=== PATIENT | male | born 1970 | race Caucasian/White ===

== ENCOUNTER 2021-01-07 10:32 | Outpatient (CLI) | payer BC, SELFPAY ==
[2021-01-07] MEDS: Breeza Beverage 473 ML BTL PO ×2 (13:22→13:23)
[2021-01-07 14:14] LABS: ALT 88 U/L (16-63); AST 40 U/L (15-37); Albumin 2.7 g/dL (3.4-5.0); Alkaline Phosphatase 84 U/L (46-116); Anion Gap 8.9 mmol/L (3-11); BUN 11 mg/dL (7-18); Bilirubin, Total 0.8 mg/dL (0.2-1.0); CO2 27.1 mmol/L (21.0-32.0); CREATININE 0.8 mg/dL (0.70-1.30); Calcium 8.7 mg/dL (8.5-10.1); Chloride 99 mmol/L (98-107); Glucose 102 mg/dL (74-106); Potassium 3.5 mmol/L (3.5-5.1); Sodium 135 mmol/L (136-145)
--- NOTE | 2021-01-07 15:10 | DI.CT_ITS ---
Exam(s) CT ABDOMEN PELVIS W EXAM: CT ABDOMEN PELVIS W CLINICAL HISTORY: ACUTE DIVERTICULITIS, K57.92. TECHNIQUE: Imaging Protocol: Axial computed tomography images with coronal and sagittal reformatted images were created and reviewed CONTRAST MATERIAL: Intravenous: Omnipaque 350 Contrast volume:100 ml Oral: yes COMPARISON: No exams were available for comparison FINDINGS: ABDOMEN: Lung Bases: Normal where visualized. Liver: Normal density. No measurable mass. Gallbladder and biliary tract: No radiodense calculus or dilation. Pancreas: Normal density, no abnormal calcifications or inflammatory process. Spleen: Normal. Kidneys: Normal size, contour and axis. No radiodense stones or obstructive uropathy. No masses seen. Adrenal glands: No masses seen. Abdominal Aorta: Abdominal portion non-dilated. PELVIS: Bladder: Wall thickening at the upper left side of the bladder, adjacent to the colonic inflammation. No air within the bladder.. No calculi.No focal mass. Bowel: Extensive diverticulosis throughout the colon. Severe inflammation centered around the sigmoi d colon. Marked stranding in the surrounding fat. Multiple small adjacent abscesses medial to the s igmoid colon, superior to the bladder. Together the abscesses measure approximately 6 cm. No obstru ction . Appendix normal. Peritoneal cavity: No free air or ascites. Bones: Degenerative changes. Within normal limits for age. Reproductive organs: Within normal limits. Lymph nodes: Unremarkable. Soft tissues: Small bilateral fatty containing inguinal hernias. Small amount of fat at the umbilicu s. Impression: Severe sigmoid diverticulitis with multiple small abscess formation measuring roughly 6 cm in diamete r between the sigmoid colon and bladder. RADIATION DOSE DELIVERED: 1,305.11mGy.cm Total DLP DATA REPOSITORY: All CT scans at this facility are submitted to the National Radiology Data Registry (NRDR) Dose Index Registry (DIR) with the [employer] (ACR). RADIATION OPTIMIZATION: All CT scans at this facility use at least one of these dose optimization te chniques: automated exposure control; mA and/or kV adjustment per patient size (includes targeted exa ms where dose is matched to clinical indication); or iterative reconstruction.
[2021-01-07] MEDS: Omnipaque 350 MG/ML 100 ML BTL IJ (15:16)
[2021-01-07] MEDS: Normal Saline - Diluent 50 ML VIAL IV (15:17)
[2021-01-07] MEDS: Normal Saline Flush 10 ML SYR IVP (15:17)
== END 2021-01-07 10:52 ==
PROVIDERS: PCP Specialist/Technologist Athletic Trainer; Visit Provider Family Medicine
DX: K57.20 Diverticulitis of large intestine with perforation and abscess without bleeding; R73.9 Hyperglycemia, unspecified; I10 Essential (primary) hypertension; E78.5 Hyperlipidemia, unspecified
CPT/HCPCS: 80053; 74177; J3490

== ENCOUNTER 2021-02-12 14:35 | Outpatient (REF) | payer BC, SELFPAY | END 2021-02-12 14:36 | disposition home or self-care (01) | LOC: NCHCN 14:35 | PROVIDERS: PCP Specialist/Technologist Athletic Trainer; Visit Provider Family Medicine | DX: R30.0 Dysuria (principal) | CPT/HCPCS: 87077; 87086; 87186 ==

== ENCOUNTER 2021-02-26 12:37 | Outpatient (REF) | payer BC, SELFPAY ==
[2021-02-26 15:52] LABS: Abs Immature Grans 0.02 10^3/uL (0.0-0.06); Absolute Basophil Count 0.06 10^3/uL (0.0-0.2); Absolute Eosinophil Count 0.11 10^3/uL (0.0-0.7); Absolute Lymphocyte Count 2.49 10^3/uL (1.2-3.4); Absolute Monocyte Count 0.62 10^3/uL (0.1-0.8); Absolute Neutrophil Count 4.93 10^3/uL (1.2-6.7); Basophils % 0.7; Eosinophils % 1.3; HCT 42.7 % (40.0-50.0); HGB 13.6 g/dL (13.5-17.5); Immature Grans % 0.2; Lymphocytes % 30.3; MCH 27.3 pg (27.0-33.0); MCHC 31.9 % (32.0-36.0); MCV 85.7 fL (80-95); MPV 10.6 fL (8.0-11.0); Monocytes % 7.5; Nucleated RBC 0 %; Platelet Count 348 10^3/uL (130-400); RBC 4.98 10^6/uL (4.36-5.78); RDW 14.6 % (11.8-14.1); RDW-SD 45.4 fL; WBC 8.23 10^3/uL (4.4-10.8)
[2021-02-26 15:56] LABS: Bilirubin Negative (Negative); Blood Large (Negative); Clarity Cloudy (Clear); Glucose Negative (Negative); Ketones Trace mg/dL (Negative); Leukocyte Esterase Trace (Negative); Nitrite Negative (Negative); Specific Gravity >= 1.030 (1.005-1.025); Urobilinogen 0.2 EU/dL (Up TO 0.2); pH 5.5 (5-8)
[2021-02-26 15:58] LABS: ALT 36 U/L (16-63); AST 18 U/L (15-37); Albumin 3.6 g/dL (3.4-5.0); Alkaline Phosphatase 70 U/L (46-116); Anion Gap 6.1 mmol/L (3-11); BUN 15 mg/dL (7-18); Bilirubin, Total 0.4 mg/dL (0.2-1.0); CO2 31.9 mmol/L (21.0-32.0); CREATININE 0.9 mg/dL (0.70-1.30); Calcium 9.4 mg/dL (8.5-10.1); Chloride 104 mmol/L (98-107); Glucose 107 mg/dL (74-106); Potassium 4.5 mmol/L (3.5-5.1); Sodium 142 mmol/L (136-145)
[2021-02-26 16:06] LABS: Bacteria Many HPF (Negative); C & S Indicated? Yes; WBC >50 HPF (0-5)
== END 2021-02-26 12:38 | disposition home or self-care (01) ==
LOC: NCHCN 12:37
PROVIDERS: PCP Specialist/Technologist Athletic Trainer; Visit Provider Family Medicine
DX: R10.32 Left lower quadrant pain (principal); R30.0 Dysuria
CPT/HCPCS: 80053; 81003; 81015; 85025; 87086

== ENCOUNTER 2021-03-11 09:16 | Inpatient (IN) | payer BC, SELFPAY ==
--- NOTE | 2021-03-11 11:32 | HPE_ITS ---
Date of service: 03/11/21 Time of Service: 11:32 Assessment and Plan Assessment and plan (1) Diverticulitis, colon: Status: Acute Assessment and plan: Patient continues to have a low-grade diverticulitis despite being on almost 3 weeks of po Cipro and Flagyl. He is currently still on Bactrim for UTI proph from the colo-vesicle fistula. I did personally review his CT scan and does still show a giant phlegmon as well as the colovesical fistula. He still complains of low-grade fevers and pain. As it stands right now if we were to do surgery he will most likely have have a diverting Ileostomy and possibly a colostomy. admitting and triy to do some IV antibiotic therapy to see if we can resolve some of the infectious process, so that when he has surgery he would not require some type of ostomy. Patient is being admitted for IV antibiotics. Pulmonary toilet DVT prophylaxis Probiotics. We will repeat CT scan in 2 weeks time and see if there is been decrease in the inflammation and infection. Reviewed the plan w/ the pt and his sisters. cont to eat a high protein and low flber diet at this point. Further recommendations to follow poss d/c home Wednesday afternoon and cont on augmentin as output for 7 days pro-biotics f/u w/ me in clinic on wednesday (2) Colonic diverticular abscess: Status: Acute (3) Colovesical fistula: Status: Acute (4) Borderline systolic HTN: Status: Acute (5) Borderline hyperlipidemia: Status: Acute History of Present Illness Narrative: Patient was seen in the office on 03/10. He has a chronic subacute d iverticulitis and colovesical fistula. He originally developed diverticulitis in January and had a pretty significant case. He did have a large diverticular abscess. He was treated as a outpatient with oral antibiotics only went down to [facility] for drain. Repeat CT from [facility] shows that the abscess has resolved. He still has large phlegmon and the colovesical fistula. He is passing air and stool when he urinates. He still complains of pain left lower quadrant, nausea, T and mild low-grade temps. He has had no nausea vomiting. He is able to eat. Review of Systems All systems reviewed & are unremarkable except as noted in HPI and below [facility] Medical History (Updated 03/11/21 @ 12:01 by Keisha Ruiz) Depression Diverticulitis High cholesterol Hypertension UTI (urinary tract infection) Surgical History (Updated 03/11/21 @ 12:01 by Keisha Ruiz) History of coronary artery stent placement Social History Smoking/Tobacco Use Status: Former Tobacco Use Smoking risk assessment performed?: Yes Alcohol Intake: former Drug use: Never Substance use type: does not use Do you feel safe at home: Yes Do you feel safe in your relationship?: Yes Additional Social history: Pt lives alone with two dogs. Meds Allergies and Home Medications Allergies Allergy/AdvReac Type Severity Reaction Status Date / Time atorvastatin Allergy Mild elevated Verified 03/10/21 11:42 liver enzymes Penicillins Allergy Mild Hives, Verified 03/10/21 11:42 nausea simvastatin AdvReac Intermediate elevated Verified 03/10/21 11:42 liver enzymes Hymenoptera Allergy Intermediate heart Uncoded 03/10/21 11:42 racing, red face, headache Home Medications Medication Instructions Recorded Confirmed Type epinephrine 0.3 mg/0.3 mL 0.3 mg IM Q5-15M PRN 03/10/21 03/11/21 History injection, auto-injector sulfamethoxazole 400 1 tab PO DAILY 03/10/21 03/11/21 History mg-trimethoprim 80 mg tablet Exam Const General: cooperative, healthy appearing, comfortable, no acute distress, well developed and well groomed Nutritional Appearance: average body habitus and well nourished Orientation: alert, awake and oriented x3 HENMT Head: normal to inspection, normocephalic and atraumatic Ears: hearing grossly normal bilaterally and external ears normal General nose exam: external nose normal Face and sinus: normal facial exam and sinuses nontender Mouth: oral mucosae normal, lip normal, tongue normal and moist mucous membranes Teeth and gingiva: dentition normal Eyes General: appearance normal, both eyes and all related structures Conjunctivae: conjunctivae normal Sclera: sclerae normal Pupils: PERRL Neck Neck: normal visual inspection and full ROM Chest Chest: normal inspection of the chest Resp Effort & Inspection: normal respiratory effort, able to speak in complete sentences, no cough, no nasal flaring, not tachypneic and no use of accessory muscles Auscultation: clear to auscultation bilaterally, no rales, no rhonchi and no wheezes Cardio Jugular venous pressure: no JVD Rate: regular rate Rhythm: regular rhythm GI Inspection: normal to inspection, no edema and non-distended Palpation: soft, no masses, nontender and No ascites Auscultation: normal bowel sounds Other: mild tenderness in the LLQ. good BS. no hernias. Skin General skin exam: no rashes or lesions noted Trauma: no lacerations or abrasions Neuro General: patient alert, patient oriented x3, oriented, gait normal, moves all extremities, no focal motor deficits and CN's II-XI intact bilaterally Cognition: normal cognition Speech: speech normal Gait: normal gait Motor: muscle tone normal throughout Extrem General: normal to inspection, full ROM and no clubbing, cyanosis or edema Psych Appearance: grossly normal and well kempt Mental Status: mental status grossly normal Speech and Movement: speech and movement normal Affect: normal affect Results Labs Result diagrams: 03/11/21 12:22 03/11/21 13:15
[2021-03-11 11:51] VITALS: BP 138/83; PULSE 78; RESP 16; TEMP 36.6; O2SAT 99
[2021-03-11 12:30] VITALS: BP 138/83; PULSE 78; RESP 16; TEMP 36.6; O2SAT 99
[2021-03-11 12:48] LABS: Source Nasal/Nares
[2021-03-11 12:58] LABS: Abs Immature Grans 0.03 10^3/uL (0.0-0.06); Absolute Basophil Count 0.08 10^3/uL (0.0-0.2); Absolute Eosinophil Count 0.19 10^3/uL (0.0-0.7); Absolute Lymphocyte Count 2.49 10^3/uL (1.2-3.4); Absolute Monocyte Count 0.61 10^3/uL (0.1-0.8); Absolute Neutrophil Count 6.01 10^3/uL (1.2-6.7); Basophils % 0.9; HCT 40.8 % (40.0-50.0); HGB 13.2 g/dL (13.5-17.5); Immature Grans % 0.3; Lymphocytes % 26.5; MCH 27.3 pg (27.0-33.0); MCHC 32.4 % (32.0-36.0); MCV 84.5 fL (80-95); MPV 10.3 fL (8.0-11.0); Monocytes % 6.5; Neutrophils % 63.8; Nucleated RBC 0 %; Platelet Count 277 10^3/uL (130-400); RBC 4.83 10^6/uL (4.36-5.78); RDW 14.9 % (11.8-14.1); RDW-SD 45.4 fL; WBC 9.41 10^3/uL (4.4-10.8)
[2021-03-11] MEDS: Normal Saline 1,000 ML 30 ML IV (13:45)
[2021-03-11 13:54] LABS: ALT 24 U/L (16-63); AST 12 U/L (15-37); Albumin 3.5 g/dL (3.4-5.0); Alkaline Phosphatase 65 U/L (46-116); Anion Gap 7.8 mmol/L (3-11); BUN 19 mg/dL (7-18); Bilirubin, Total 0.5 mg/dL (0.2-1.0); C-Reactive Protein 0.72 mg/dL (0.0-0.3); CO2 29.2 mmol/L (21.0-32.0); CREATININE 1.1 mg/dL (0.70-1.30); Calcium 9.1 mg/dL (8.5-10.1); Chloride 101 mmol/L (98-107); Glucose 123 mg/dL (74-106); Sodium 138 mmol/L (136-145)
[2021-03-11 14:25] LABS: COVID-19 PCR Negative (Negative)
[2021-03-11 15:20] LABS: Bilirubin Negative (Negative); Blood Small (Negative); Clarity Sl Cloudy (Clear); Glucose Negative (Negative); Ketones Negative (Negative); Leukocyte Esterase Moderate (Negative); Nitrite Negative (Negative); Specific Gravity 1.015 (1.005-1.025); Urobilinogen 0.2 EU/dL (Up TO 0.2); pH 5.5 (5-8)
[2021-03-11 15:36] LABS: Bacteria Rare HPF (Negative); C & S Indicated? Yes; Crystals Negative HPF (Negative); Epithelial Cells Negative HPF (Negative); Mucus Negative (Negative); WBC >50 HPF (0-5)
[2021-03-11 16:10] VITALS: BP 143/87; PULSE 78; RESP 16; TEMP 36.6; O2SAT 97
[2021-03-11 23:51] VITALS: BP 130/87; PULSE 64; RESP 16; TEMP 36.3; O2SAT 97
[2021-03-12 07:33] LABS: HCT 40.4 % (40.0-50.0); HGB 13.4 g/dL (13.5-17.5); MCH 27.2 pg (27.0-33.0); MCHC 33.2 % (32.0-36.0); MCV 82.1 fL (80-95); MPV 10.4 fL (8.0-11.0); Platelet Count 259 10^3/uL (130-400); RBC 4.92 10^6/uL (4.36-5.78); RDW 14.9 % (11.8-14.1); RDW-SD 44.6 fL; WBC 7.66 10^3/uL (4.4-10.8)
--- NOTE | 2021-03-12 11:17 | W.PM.PROGNOT ---
Date of Service Date of service: 03/12/21 Time of Service: 08:00 Assessment and Plan Assessment and plan (1) Diverticulitis, colon: Status: Acute Assessment and plan: Low grade diverticulitis with colo-vesicle fistula. Admitted for IV antibiotics. Regular Diet DVT prophylaxis Probiotics. Ambulation and activity OOB as tolerated Per Dr. Vazquez plan, d/c later today on 7 day course of Augmentin and Follow up at the Surgical Office next week. (2) Colonic diverticular abscess: Status: Acute (3) Colovesical fistula: Status: Acute (4) Borderline systolic HTN: Status: Acute (5) Borderline hyperlipidemia: Status: Acute Subjective Subjective Interval history since last seen: patient reports he is doing well. Denies any pain, fevers or chills. He is tolerating a regular diet. Exam Const General: cooperative, healthy appearing and comfortable Orientation: alert and oriented x3 Resp Effort & Inspection: normal respiratory effort, no audible wheezes and no cough Objective Last Vital Signs Temp 36.3 C L 03/11/21 23:51 Pulse 64 03/11/21 23:51 Resp 16 03/11/21 23:51 BP 130/87 03/11/21 23:51 Pulse Ox 97 03/11/21 23:51 Laboratory Results - last 24 hr 03/11/21 03/11/21 03/11/21 12:20 12:22 12:35 WBC 9.41 RBC 4.83 Hgb 13.2 L Hct 40.8 MCV 84.5 MCH 27.3 MCHC 32.4 RDW 14.9 H Plt Count 277 MPV 10.3 Immature Gran % 0.3 Neutrophils % 63.8 Lymphocytes % 26.5 Monocytes % 6.5 Eosinophils % 2.0 Basophils % 0.9 Nucleated RBC % 0 Absolute Neutrophils 6.01 Absolute Lymphocytes 2.49 Absolute Monocytes 0.61 Absolute Eosinophils 0.19 Absolute Basophils 0.08 Sodium Cancelled Potassium Cancelled Chloride Cancelled Carbon Dioxide Cancelled Anion Gap Cancelled BUN Cancelled Creatinine Cancelled Estimated GFR/1.73 m2 Cancelled Glucose Cancelled Calcium Cancelled Total Bilirubin Cancelled AST Cancelled ALT Cancelled Alkaline Phosphatase Cancelled C-Reactive Protein Cancelled Total Protein Cancelled Albumin Cancelled Urine Color Urine Clarity Urine pH Ur Specific [place] Urine Protein Urine Ketones Urine Blood Urine Nitrite Urine Bilirubin Urine Urobilinogen Ur Leukocyte Esterase Urine RBC Urine WBC Ur Epithelial Cells Urine Crystals Urine Bacteria Urine Mucus Ur Culture Indicated? Urine Glucose COVID-19 Source Nasal/Nares SARS-CoV-2 (PCR) Negative 03/11/21 03/11/21 03/12/21 13:15 14:20 06:55 WBC 7.66 RBC 4.92 Hgb 13.4 L Hct 40.4 MCV 82.1 MCH 27.2 MCHC 33.2 RDW 14.9 H Plt Count 259 MPV 10.4 Immature Gran % Neutrophils % Lymphocytes % Monocytes % Eosinophils % Basophils % Nucleated RBC % Absolute Neutrophils Absolute Lymphocytes Absolute Monocytes Absolute Eosinophils Absolute Basophils Sodium 138 Potassium 4.0 Chloride 101 Carbon Dioxide 29.2 Anion Gap 7.8 BUN 19 H Creatinine 1.1 Estimated GFR/1.73 m2 >= 60.00 Glucose 123 H Calcium 9.1 Total Bilirubin 0.5 AST 12 L ALT 24 Alkaline Phosphatase 65 C-Reactive Protein 0.72 H Total Protein 8.0 Albumin 3.5 Urine Color Yellow Urine Clarity Sl Cloudy Urine pH 5.5 Ur Specific [place] 1.015 Urine Protein Negative Urine Ketones Negative Urine Blood Small H Urine Nitrite Negative Urine Bilirubin Negative Urine Urobilinogen 0.2 Ur Leukocyte Esterase Moderate H Urine RBC 5-10 H Urine WBC >50 H Ur Epithelial Cells Negative Urine Crystals Negative Urine Bacteria Rare Urine Mucus Negative Ur Culture Indicated? Yes Urine Glucose Negative COVID-19 Source SARS-CoV-2 (PCR)
--- NOTE | 2021-03-12 11:28 | DSE_ITS ---
Date of service: 03/12/21 Time of Service: 11:29 DS: Diagnosis Discharge Diagnosis (1) Diverticulitis, colon: Status: Acute (2) Colonic diverticular abscess: Status: Acute (3) Colovesical fistula: Status: Acute (4) Borderline systolic HTN: Status: Acute (5) Borderline hyperlipidemia: Status: Acute Discharge Plan Disposition Patient Disposition: HOME Condition: Improving Discharge Details Reason For Visit: Diverticulitis/Colovesical Fistula Admit Date/Time: 03/11/21 09:16 Admit Provider: Christianne Vazquez Attending Provider: Christianne Vazquez Primary Care Provider: Harjinder Dangelo [facility] Course Hospital Course: Mr. Santiago is a pleasant 50 year old male who has been treated as an outpatient for diverticulitis with a colovescicle fistula. He was having some pain and low grade fevers still so he was admitted for 24 hours of IV antibiotics. He is feeling much better today. He has no pain. No N/V and he is tolerating a low fiber diet. He has been afebrile since admission and his WBC count is normal. Home Meds and New Rx's Prescriptions: New amoxicillin-pot clavulanate [Augmentin] 875-125 mg tablet 1 tab PO TID 7 Days Qty: 21 RF: [address] (L. sporog) 35 million- 25 million cell tablet 1 tab PO DAILY Qty: 90 RF: 0 Continued epinephrine [EpiPen 2-Jose Ramon] 0.3 mg/0.3 mL auto-injector 0.3 mg IM Q5-15M PRNRF: 0 sulfamethoxazole-trimethoprim [Bactrim] 400-80 mg tablet 1 tab PO DAILY RF: 0 Discharge Instructions Instructions: Diverticulitis (DC), Low Fiber Diet (DC) Additional Instructions: Activity at Home after surgery: 1. As tolerated Diet, Nutrition, & wound healin. Low fiber and high protein Pain Medications: 1. Tylenol 650mg every 6 hours as needed and Ibuprofen 600 mg every 6 hours as needed. You may alternate between the 2 medications every 3 hours 2. If a narcotic has been prescribed take as directed only for breakthr ough pain For Constipation: 1. Take Milk of Magnesia or MiraLax as needed for constipation Other: 1. You may shower daily. Do not scrub the incisions 2. Do not soak the incisions for 1 week 3. You may alternate ice and heat as needed for pain and swelling Wound Care: 1. Keep the incisions clean and dry Please call our office if you develop: 1. Fevers >101.5 2. Nausea or Vomiting 3. Worsening pain 4. Redness and thick discharge from the wounds If after hours please call the Hospital at and ask to speak to the on-call surgeon Referrals: Harjinder Dangelo MD [Primary Care Provider] - 03/19/21 11:00 am Kitty Cortez MD [ [facility] STAFF PHYSICIAN] - 03/18/21 2:45 pm Activity:: Activity as Tolerated Equipment/Supplies:: No Equipment Needed Diet:: low fiber Discharge Orders Discharge Orders: Discharge Order (Routine); Ordered 03/12/21 Ordered By: Kitty Cortez DS: Summary Time Spent with Patient providing and/or coordinating discharge services: Less than 30 minutes Status at Discharge Functional status at discharge: independent ambulation Overall status at discharge: patient is back to baseline Mental Status: mental status grossly normal Speech and Movement: speech and movement normal Mood: congruent mood Affect: normal affect Exam Resp Effort & Inspection: normal respiratory effort Auscultation: clear to auscultation bilaterally Cardio Rate: regular rate Rhythm: regular rhythm GI Palpation: soft, no hepatosplenomegaly and nontender Psych Mental Status: mental status grossly normal Speech and Movement: speech and movement normal Mood: congruent mood Affect: normal affect DS: Data Vitals/I&O Vitals and I&O: Vital Signs Temperature 97.3 F L 03/11/21 23:51 Temperature Source Tympanic 03/11/21 23:51 Pulse 64 03/11/21 23:51 Pulse Rhythm Regular 03/12/21 08:30 Respiratory Rate 16 03/11/21 23:51 Respiratory Effort Non-Labored 03/12/21 08:30 Respiratory Depth Normal 03/12/21 08:30 Respiratory Pattern Normal 03/12/21 08:30 Blood Pressure 130/87 03/11/21 23:51 Pulse Oximetry 97 03/11/21 23:51 Oxygen Delivery Method Room Air 03/11/21 23:51 Oxygen Flow Rate 0 03/11/21 23:51 Pain Level 0 03/11/21 23:51 Comment 03/11/21 12:08 Intake & Output 03/11/21 03/11/21 03/12/21 11:59 23:59 11:59 Intake Total 510 / 510 50 / 50 Balance 510 / 510 50 / 50 Weight 233 lb 14.567 oz 233 lb 14.567 oz 231 lb 7.766 oz Intake: IV 50 / 50 50 / 50 Oral 460 / 460 Data Completed and Pending Labs on day of discharge: Labs from last 24 hours 03/12/21 03/11/21 03/11/21 06:55 14:20 13:15 WBC 7.66 RBC 4.92 Hgb 13.4 L Hct 40.4 MCV 82.1 MCH 27.2 MCHC 33.2 RDW 14.9 H Plt Count 259 MPV 10.4 Immature Gran % Neutrophils % Lymphocytes % Monocytes % Eosinophils % Basophils % Nucleated RBC % Absolute Neutrophils Absolute Lymphocytes Absolute Monocytes Absolute Eosinophils Absolute Basophils Sodium 138 Potassium 4.0 Chloride 101 Carbon Dioxide 29.2 Anion Gap 7.8 BUN 19 H Creatinine 1.1 Estimated GFR/1.73 m2 >= 60.00 Glucose 123 H Calcium 9.1 Total Bilirubin 0.5 AST 12 L ALT 24 Alkaline Phosphatase 65 C-Reactive Protein 0.72 H Total Protein 8.0 Albumin 3.5 Urine Color Yellow Urine Clarity Sl Cloudy Urine pH 5.5 Ur Specific [place] 1.015 Urine Protein Negative Urine Ketones Negative Urine Blood Small H Urine Nitrite Negative Urine Bilirubin Negative Urine Urobilinogen 0.2 Ur Leukocyte Esterase Moderate H Urine RBC 5-10 H Urine WBC >50 H Ur Epithelial Cells Negative Urine Crystals Negative Urine Bacteria Rare Urine Mucus Negative Ur Culture Indicated? Yes Urine Glucose Negative COVID-19 Source SARS-CoV-2 (PCR) 03/11/21 03/11/21 03/11/21 12:35 12:22 12:20 WBC 9.41 RBC 4.83 Hgb 13.2 L Hct 40.8 MCV 84.5 MCH 27.3 MCHC 32.4 RDW 14.9 H Plt Count 277 MPV 10.3 Immature Gran % 0.3 Neutrophils % 63.8 Lymphocytes % 26.5 Monocytes % 6.5 Eosinophils % 2.0 Basophils % 0.9 Nucleated RBC % 0 Absolute Neutrophils 6.01 Absolute Lymphocytes 2.49 Absolute Monocytes 0.61 Absolute Eosinophils 0.19 Absolute Basophils 0.08 Sodium Cancelled Potassium Cancelled Chloride Cancelled Carbon Dioxide Cancelled Anion Gap Cancelled BUN Cancelled Creatinine Cancelled Estimated GFR/1.73 m2 Cancelled Glucose Cancelled Calcium Cancelled Total Bilirubin Cancelled AST Cancelled ALT Cancelled Alkaline Phosphatase Cancelled C-Reactive Protein Cancelled Total Protein Cancelled Albumin Cancelled Urine Color Urine Clarity Urine pH Ur Specific [place] Urine Protein Urine Ketones Urine Blood Urine Nitrite Urine Bilirubin Urine Urobilinogen Ur Leukocyte Esterase Urine RBC Urine WBC Ur Epithelial Cells Urine Crystals Urine Bacteria Urine Mucus Ur Culture Indicated? Urine Glucose COVID-19 Source Nasal/Nares SARS-CoV-2 (PCR) Negative 03/11/21 14:20 Urine - Reflex from Urine Culture - Pending Preliminary micro results at discharge 03/11/21 14:20 Urine Culture - Pending Urine - Reflex from [facility] Medical History Depression Diverticulitis High cholesterol Hypertension UTI (urinary tract infection) Surgical History History of coronary artery stent placement Social History Smoking/Tobacco Use Status: Former Tobacco Use Smoking risk assessment performed?: Yes Alcohol Intake: former Drug use: Never Substance use type: does not use Do you feel safe at home: Yes Do you feel safe in your relationship?: Yes Additional Social history: Pt lives alone with two dogs.
== END 2021-03-12 13:38 | disposition home or self-care (01) | DRG 392 ==
PROVIDERS: Admitting Provider Surgery; PCP Family Medicine; Visit Provider Surgery
DX: K57.20 Diverticulitis of large intestine with perforation and abscess without bleeding; N32.1 Vesicointestinal fistula; E78.5 Hyperlipidemia, unspecified; F32.9 Major depressive disorder, single episode, unspecified; I10 Essential (primary) hypertension; Z95.5 Presence of coronary angioplasty implant and graft; Z87.891 Personal history of nicotine dependence; Z20.822 Contact with and (suspected) exposure to COVID-19
CPT/HCPCS: 36415; 80053; 85027; 87635; 81003; 81015; 85025; 86140; 87086

== ENCOUNTER 2021-03-26 01:49 | Outpatient (CLI) | payer BC, SELFPAY ==
--- NOTE | 2021-03-26 06:30 | DI.CT_ITS ---
Exam(s) CT ABDOMEN PELVIS W EXAM: CT ABDOMEN PELVIS W CLINICAL HISTORY: f/u on fistula/ abscess,DIVERTICULITIS,N32.1,K57.32 TECHNIQUE: Imaging Protocol: Axial computed tomography images with coronal and sagittal reformatted images were created and reviewed CONTRAST MATERIAL: Intravenous: Omnipaque 350 Contrast volume:100 mL Oral: Yes COMPARISON: CT CT ABDOMEN PELVIS W from 01/07/2021 FINDINGS: ABDOMEN: Lung Bases: Gynecomastia. Liver: Normal density. No measurable mass. Portal, Superior Mesenteric, and Splenic Veins: Unremarkable. Gallbladder and Biliary Tract: No radiodense calculus or dilation. Pancreas: Normal density, no abnormal calcifications or inflammatory process. Spleen: Normal. Adrenals: No masses seen. Kidneys: Normal size, contour and axis. No radiodense stones or obstructive uropathy. There is a 7 mm round hypodense cortical lesion in the inferior pole of the left kidney. It is too small for furthe r characterization but likely reflects a cyst. No follow-up is recommended. Abdominal Aorta: Abdominal portion non-dilated. Atherosclerosis. Bowel: There is persistent thickening of the wall of the distal descending colon and proximal sigmoid colon. Pericolonic inflammatory changes are present. The sigmoid colon abuts the superior and left aspect of the urinary bladder. Air is seen in the soft tissues at the site of contact suspicious fo r fistula. There is air seen within the urinary bladder. There is diffuse thickening of the wall of the urinary bladder suggesting infection/inflammation. The findings are suspicious for a colovesica l fistula. No abscess is identified. There is no free air. There is diverticulosis seen in the col on. There is no evidence of bowel obstruction. Appendix is unremarkable. Peritoneal Cavity: No ascites, collection or mesenteric inflammatory response. No free air. Lymph Nodes: Within normal limits. Bones: Within normal limits for the patient's age. Soft Tissues: There is a small fat containing umbilical hernia. Small fat containing inguinal hernia are present. PELVIS: Bladder: Please see the above discussion. Reproductive Organs: Unremarkable as visualized. Lymph Nodes: Within normal limits. Bones: Within normal limits for the patient's age. IMPRESSION: 1. Findings of descending and sigmoid inflammation/infection (probably diverticulitis). 2. Air seen within the colon suspicious for a colovesical fistula. 3. Diffuse thickening of the wall of the urinary bladder likely reflecting cystitis secondary to the adjacent diverticulitis. RADIATION DOSE DELIVERED: 1,402.52mGy.cm Total DLP DATA REPOSITORY: All CT scans at this facility are submitted to the National Radiology Data Registry (NRDR) Dose Index Registry (DIR) with the [employer] (ACR). RADIATION OPTIMIZATION: All CT scans at this facility use at least one of these dose optimization te chniques: automated exposure control; mA and/or kV adjustment per patient size (includes targeted exa ms where dose is matched to clinical indication); or iterative reconstruction.
[2021-03-26] MEDS: Omnipaque 350 MG/ML 50 ML BTL PO (08:50)
[2021-03-26] MEDS: Breeza Beverage 473 ML BTL PO (08:50)
[2021-03-26] MEDS: Omnipaque 350 MG/ML 100 ML BTL IJ (10:04)
[2021-03-26] MEDS: Normal Saline Flush 10 ML SYR IVP (10:05)
[2021-03-26] MEDS: Normal Saline - Diluent 50 ML VIAL IV (10:05)
== END 2021-03-26 02:09 ==
PROVIDERS: PCP Family Medicine; Visit Provider Surgery
DX: K57.32 Diverticulitis of large intestine without perforation or abscess without bleeding
CPT/HCPCS: 74177; J3490; Q9967

== ENCOUNTER 2021-03-28 10:05 | Inpatient (IN) | payer BC, SELFPAY ==
[2021-03-28] VITALS (70 sets, daily range): BP systolic 133–176; BP diastolic 89–107; PULSE 68–108; RESP 14–25; TEMP 36.4–37.1; O2SAT 91–98
--- NOTE | 2021-03-28 10:00 | DI.CT_ITS ---
Exam(s) CT ABDOMEN PELVIS W EXAM: CT ABDOMEN PELVIS W CLINICAL HISTORY: Diverticulitis, colovesical fistula TECHNIQUE: COMPARISON: CT CT ABDOMEN PELVIS W from 03/26/2021 FINDINGS: CT examination of the abdomen and pelvis was performed with bolus infusion of 100 cc of Omnipaque 350 . Images obtained through the lung bases are unremarkable. The liver appears normal with no evidence of a focal mass. Spleen is unremarkable in appearance.. Gallbladder and bile ducts are unremarkable. Pancreas is unremarkable in appearance. Adrenals appear normal bilaterally. Kidneys appear normal with no evidence of renal mass, hydronephrosis, or nephrolithiasis. Unremarkab le bladder. There is no evidence of abdominal or pelvic adenopathy. Abdominal aorta is of normal diameter and no abnormality is seen involving major visceral branches.. Appendix is normal. As noted on recent CT of March 26, there is a severe diverticulitis of the sigmoid colon. The fat plane between in the sigmoid and urinary bladder is lost at the superior lateral aspect of the urina ry bladder. There is gas in the urinary bladder. Findings are suggestive of a colovesical fistula. No abscess is identified. No free intraperitoneal air seen. No evidence of bowel obstruction. No significant abdominal wall hernia seen. Impression: Severe sigmoid diverticulitis, the degree of [place] colonic inflammation appears increased in compariso n with prior examination of March 26. There are findings suggesting a colovesical fistula. RADIATION DOSE DELIVERED: 1,272.95mGy.cm Total DLP 1,272.95mGy.cm Total DLP CTDIvol DATA REPOSITORY: All CT scans at this facility are submitted to the National Radiology Data Registry (NRDR) Dose Index Registry (DIR) with the [employer] (ACR). RADIATION OPTIMIZATION: All CT scans at this facility use at least one of these dose optimization te chniques: automated exposure control; mA and/or kV adjustment per patient size (includes targeted exa ms where dose is matched to clinical indication); or iterative reconstruction.
--- NOTE | 2021-03-28 10:07 | W.ED.GENAD ---
Discharge Plan Disposition Patient Disposition: [facility] INPATIENT Condition: Stable Discharge Details Clinical Impression: Diverticulitis, Colovesical fistula Primary Care Provider: Harjinder Dangelo ED Provider: Kiel Saleh Home Meds and New Rx's Prescriptions: No Action epinephrine [EpiPen 2-Jose Ramon] 0.3 mg/0.3 mL auto-injector 0.3 mg IM Q5-15M PRNRF: 0 amoxicillin-pot clavulanate [Augmentin] 875-125 mg tablet 1 tab PO BID 10 Days Qty: 20 RF: 0 neomycin 500 mg tablet 500 mg PO DIRECTED Qty: 8 RF: 0 metronidazole [Flagyl] 500 mg tablet 500 mg PO DIRECTED Qty: 8 RF: 0 ondansetron HCl [Zofran] 4 mg tablet 8 mg PO Q8H PRN Qty: 3 RF: 0 Acidophilus Ex Str (L. sporog) 35 million- 25 million cell tablet 1 tab PO DAILY Qty: 90 RF: 0 Medical Decision Making 50-year-old gentleman with known diverticulitis and colovesical fistula, presents to the ER today at the request of surgery for CT imaging of abdomen pelvis for concern of worsening disease. Patient is currently being treated with oral antibiotics but given his increased discomfort overnight concern for failed outpatient therapy. Clinically he appears well, nontoxic, abdomen is soft, diffuse mild lower tenderness but certainly no peritoneal signs. He is afebrile. Will obtain laboratory values and CT imaging. Patient does not require any antiemetics or analgesia at the moment. Laboratory values reveal leukocytosis of 17.16. Absolute neutrophils of 14.26. Electrolytes otherwise unremarkable. Creatinine 0.8 with a GFR greater than 60. Urinalysis negative. Covid pending CT imaging reveals worsening diverticulitis and findings consistent with colovesical fistula. Discussed findings with patient. Case then discussed with Dr. Vazquez who recommends admission to her service, she will write admission orders and I will initiate Zosyn therapy here in the ER. Patient comfortable this plan and has no additional questions or concerns This documentation was generated using Circlefive[employer] system, please disregard any oddities of phrase or misspellings. Medical Records Medical records reviewed: Yes I reviewed the patient's medical records. Imaging Data Radiologic Study: Attestation: I personally reviewed and interpreted this imaging study as follows: Imaging: CT Scan Radiologist's impression: Exam(s) CT ABDOMEN PELVIS W EXAM: CT ABDOMEN PELVIS W CLINICAL HISTORY: Diverticulitis, colovesical fistula TECHNIQUE: COMPARISON: CT CT ABDOMEN PELVIS W from 03/26/2021 FINDINGS: CT examination of the abdomen and pelvis was performed with bolus infusion of 100 cc of Omnipaque 350. Images obtained through the lung bases are unremarkable. The liver appears normal with no evidence of a focal mass. Spleen is unremarkable in appearance.. Gallbladder and bile ducts are unremarkable. Pancreas is unremarkable in appearance. Adrenals appear normal bilaterally. Kidneys appear normal with no evidence of renal mass, hydronephrosis, or nephrolithiasis. Unremarkable bladder. There is no evidence of abdominal or pelvic adenopathy. Abdominal aorta is of normal diameter and no abnormality is seen involving major visceral branches.. Appendix is normal. As noted on recent CT of March 26, there is a severe diverticulitis of the sigmoid colon. The fat plane between in the sigmoid and urinary bladder is lost at the superior lateral aspect of the urinary bladder. There is gas in the urinary bladder. Findings are suggestive of a colovesical fistula. No abscess is identified. No free intraperitoneal air seen. No evidence of bowel obstruction. No significant abdominal wall hernia seen. Impression: Severe sigmoid diverticulitis, the degree of Kita colonic inflammation appears increased in comparison with prior examination of March 26. There are findings suggesting a colovesical fistula. Lab Data Lab results reviewed: Yes I reviewed the patient's lab results. Labs: Laboratory Tests Range/Units 03/28/21 03/28/21 03/28/21 10:39 10:39 11:22 WBC (4.4-10.8) 10^3/uL 17.16 H RBC (4.36-5.78) 10^6/uL 4.96 Hgb (13.5-17.5) g/dL 13.6 Hct (40.0-50.0) % 41.1 MCV (80-95) fL 82.9 MCH (27.0-33.0) pg 27.4 MCHC (32.0-36.0) % 33.1 RDW (11.8-14.1) % 14.0 Plt Count (130-400) 10^3/uL 338 MPV (8.0-11.0) fL 9.7 Immature Gran % 0.4 Neutrophils % 83.1 Lymphocytes % 9.7 Monocytes % 6.3 Eosinophils % 0.2 Basophils % 0.3 Nucleated RBC % % 0 Absolute Neutrophils (1.2-6.7) 10^3/uL 14.26 H Absolute Lymphocytes (1.2-3.4) 10^3/uL 1.66 Absolute Monocytes (0.1-0.8) 10^3/uL 1.08 H Absolute Eosinophils (0.0-0.7) 10^3/uL 0.03 Absolute Basophils (0.0-0.2) 10^3/uL 0.05 Sodium (136-145) mmol/L 138 Potassium (3.5-5.1) mmol/L 3.7 Chloride (98-107) mmol/L 101 Carbon Dioxide (21.0-32.0) mmol/L 27.9 Anion Gap (3-11) mmol/L 9.1 BUN (7-18) mg/dL 10 Creatinine (0.70-1.30) mg/dL 0.8 Estimated GFR/1.73 m2 (mL/min/1.73m2) >= 60.00 Glucose (74-106) mg/dL 122 H Calcium (8.5-10.1) mg/dL 9.0 Total Bilirubin (0.2-1.0) mg/dL 0.6 AST (15-37) U/L 12 L ALT (16-63) U/L 25 Alkaline Phosphatase (46-116) U/L 57 Total Protein (6.4-8.2) g/dL 8.4 H Albumin (3.4-5.0) g/dL 3.3 L COVID-19 Source Nasal/Nares HPI General Mode of arrival: ambulatory. Date/Time Provider Initiated Documentation: 03/28/21 10:07. Limitations to Documentation: no limitations. Information obtained by: patient. HPI Narrative: This is a 50-year-old male with past medical history diverticulitis, colovesical fistula, depression, hypertension, presenting to the ER today from the referral of Dr. Vazquez for evaluation of lower abdominal pain, concerning for worsening diverticulitis. Requested to obtain CBC, CMP, CT imaging abdomen and pelvis with both p.o. and IV contrast. Patient states that he was seen by Dr. Vazquez yesterday in her office, was recently on antibiotics, and she prescribed additional antibiotics yesterday. Overnight he states that he had lower abdominal pain worsening in nature, moderate, severe, crampy associate with nausea. He denies fever, chest pain, shortness of breath, back pain, diarrhea, constipation, dysuria, black tarry stools or bright red blood in his stools. Patient states that his pain is actually much improved now when compared to late overnight his. Taking all of his medications as directed although did not take his most recent doses as they were being picked up from the pharmacy today. Related Data Home Medications Medication Instructions Recorded Confirmed epinephrine 0.3 mg/0.3 mL 0.3 mg IM Q5-15M PRN 03/10/21 03/28/21 injection, auto-injector acidophilus-sporogenes 1 tab PO DAILY #90 tab 03/12/21 03/28/21 [Acidophilus Ex Str (L. sporog)] amoxicillin 875 mg-potassium 1 tab PO BID 10 Days #20 tab 03/27/21 03/28/21 clavulanate 125 mg tablet metronidazole 500 mg tablet 500 mg PO DIRECTED #8 tab 03/27/21 03/28/21 neomycin 500 mg tablet 500 mg PO DIRECTED #8 tab 03/27/21 03/28/21 ondansetron HCl 4 mg tablet 8 mg PO Q8H PRN #3 tab 03/27/21 03/27/21 Previous Rx's Medication Instructions Recorded acidophilus-sporogenes 1 tab PO DAILY #90 tab 03/12/21 [Acidophilus Ex Str (L. sporog)] amoxicillin 875 mg-potassium 1 tab PO BID 10 Days #20 tab 03/27/21 clavulanate 125 mg tablet metronidazole 500 mg tablet 500 mg PO DIRECTED #8 tab 03/27/21 neomycin 500 mg tablet 500 mg PO DIRECTED #8 tab 03/27/21 ondansetron HCl 4 mg tablet 8 mg PO Q8H PRN #3 tab 03/27/21 Allergies Allergy/AdvReac Type Severity Reaction Status Date / Time bee venom protein (honey bee) Allergy Mild Cardiac Unverified 03/28/21 10:18 Dysrhythmia Penicillins Allergy Mild Hives, Verified 03/27/21 11:06 nausea simvastatin AdvReac Intermediate elevated Verified 03/27/21 11:06 liver enzymes atorvastatin AdvReac Mild elevated Verified 03/28/21 10:23 liver enzymes Hymenoptera AdvReac Intermediate heart Uncoded 03/28/21 10:23 racing, red face, headache Review of Systems Constitutional Constitutional: Denies fatigue, Denies fever(s) and Denies headache(s) ENT Ears, Nose, Mouth, and Throat: Denies headache(s) and Denies neck pain Cardiovascular Cardiovascular: Denies chest pain and Denies dyspnea Respiratory Respiratory: Denies cough and Denies dyspnea Gastrointestinal Gastrointestinal: Reports abdominal pain, Denies constipation, Denies diarrhea, Reports nausea and Denies vomiting Genitourinary Genitourinary: Denies dysuria Musculoskeletal Musculoskeletal: Denies back pain and Denies neck pain Integumentary/Breasts Skin/Breast: Denies rash Neurologic Neurologic: Denies headache(s) Endocrine Endocrine: Denies fatigue Hematologic/Lymphatic Hematologic/Lymphatic: Denies easy bleeding and Denies easy bruising [facility] Medical History Depression Diverticulitis High cholesterol Hypertension UTI (urinary tract infection) Surgical History History of coronary artery stent placement Social History Smoking/Tobacco Use Status: Former Tobacco Use Smoking risk assessment performed?: Yes Alcohol Intake: former Drug use: Never Substance use type: does not use Do you feel safe at home: Yes Do you feel safe in your relationship?: Yes Additional Social history: Pt lives alone with two dogs. Exam Const General: cooperative, healthy appearing, comfortable and no acute distress Orientation: alert and awake [facility] Head: normal to inspection, normocephalic and atraumatic Eyes General: appearance normal, both eyes and all related structures Conjunctivae: conjunctivae normal Neck Neck: normal visual inspection, trachea midline and supple Resp Effort & Inspection: normal respiratory effort and able to speak in complete sentences Auscultation: clear to auscultation bilaterally Cardio Rate: regular rate Rhythm: regular rhythm GI Inspection: normal to inspection Palpation: soft, not firm, no guarding, no pulsatile masses and tender (Diffuse mild lower quadrants) Auscultation: normal bowel sounds Back/Spine/Pelvis Back: No back tenderness Skin General skin exam: no rashes or lesions noted Neuro General: patient alert, patient awake, moves all extremities and no focal motor deficits Cognition: normal cognition Speech: speech normal Gait: normal gait Sensory Exam: no sensory deficits noted Psych Appearance: grossly normal Mental Status: mental status grossly normal
[2021-03-28 10:51] LABS: Abs Immature Grans 0.07 10^3/uL (0.0-0.06); Absolute Basophil Count 0.05 10^3/uL (0.0-0.2); Absolute Monocyte Count 1.08 10^3/uL (0.1-0.8); Basophils % 0.3; Eosinophils % 0.2; HCT 41.1 % (40.0-50.0); HGB 13.6 g/dL (13.5-17.5); Immature Grans % 0.4; Lymphocytes % 9.7; MCH 27.4 pg (27.0-33.0); MCHC 33.1 % (32.0-36.0); MCV 82.9 fL (80-95); MPV 9.7 fL (8.0-11.0); Monocytes % 6.3; Neutrophils % 83.1; Nucleated RBC 0 %; Platelet Count 338 10^3/uL (130-400); RBC 4.96 10^6/uL (4.36-5.78); RDW-SD 41.8 fL; WBC 17.16 10^3/uL (4.4-10.8)
[2021-03-28 10:56] LABS: Absolute Eosinophil Count 0.03 10^3/uL (0.0-0.7); Absolute Lymphocyte Count 1.66 10^3/uL (1.2-3.4); Absolute Neutrophil Count 14.26 10^3/uL (1.2-6.7)
[2021-03-28 11:02] LABS: ALT 25 U/L (16-63); AST 12 U/L (15-37); Albumin 3.3 g/dL (3.4-5.0); Alkaline Phosphatase 57 U/L (46-116); Anion Gap 9.1 mmol/L (3-11); BUN 10 mg/dL (7-18); Bilirubin, Total 0.6 mg/dL (0.2-1.0); CO2 27.9 mmol/L (21.0-32.0); CREATININE 0.8 mg/dL (0.70-1.30); Chloride 101 mmol/L (98-107); Glucose 122 mg/dL (74-106); Potassium 3.7 mmol/L (3.5-5.1); Sodium 138 mmol/L (136-145); Total Protein 8.4 g/dL (6.4-8.2)
[2021-03-28 11:28] LABS: Source Nasal/Nares
[2021-03-28] MEDS: Normal Saline 1,000 ML 1000 ML IV (11:30)
[2021-03-28] MEDS: Omnipaque 350 MG/ML 100 ML BTL IV (12:36)
[2021-03-28] MEDS: Normal Saline - Diluent 50 ML VIAL IV (12:37)
[2021-03-28] MEDS: Normal Saline Flush 10 ML SYR IVP (12:37)
[2021-03-28 13:47] LABS: Bilirubin Negative (Negative); Blood Negative (Negative); Clarity Clear (Clear); Glucose Negative (Negative); Ketones Negative (Negative); Leukocyte Esterase Negative (Negative); Nitrite Negative (Negative); Specific Gravity <= 1.005 (1.005-1.025); Urobilinogen 0.2 EU/dL (Up TO 0.2); pH 5.5 (5-8)
--- NOTE | 2021-03-28 13:57 | HPE_ITS ---
Date of service: 03/28/21 Time of Service: 15:35 Assessment and Plan Assessment and plan (1) Colovesical fistula: Status: Acute (2) Borderline systolic HTN: Status: Acute (3) Borderline hyperlipidemia: Status: Acute (4) Diverticulitis, colon: Status: Acute Assessment and plan: Patient will be admitted for hydration, pain control, IV antibiotic. We are attempting to prep him for surgery on Wednesday. If he develops peritonitis over the weekend then we may have to do surgery earlier. I discussed that with the patient. Because of the degree of infection that he has, he is going to wind up with some type of stoma. History of Present Illness Narrative: Patient is a 50-year-old male with chronic subacute diverticulitis and well-known to me. He contacted my office this morning stating he was feeling poorly and was referred to the ER for repeat CT with oral contrast. He states that he has been up since 230 with abdominal pain on both the left and on the right side. He has no fever or chills. He has had nausea. He has had no appetite and not been able to eat. He is passing gas but has not had a bowel movement. I did see him in the office on , March 27 to discuss surgery. He had been in the hospital 03/11 through the . He had been on Augmentin and he just finished that up the or the same. I did refill his Augmentin . He has not had any stools. I do not suspect that he has C. difficile, but if he has a liquid stool we will send a sample for C. difficile just to make sure. It is looking more like he will have To have some type of ostomy. I did discuss the case with anesthesia and with Dr. Ruiz. We will plan surgery on Wednesday. mpression: Severe s patient will be admitted for hydration and restarted on IV antibiotics.igmoid diverticulitis, the degree of Kita colonic inflammation appears increased in comparison with prior examination of March 26. There are findings suggesting a colovesical fistula. Review of Systems All systems reviewed & are unremarkable except as noted in HPI and below PFSH Medical History Depression Diverticulitis High cholesterol Hypertension UTI (urinary tract infection) Surgical History History of coronary artery stent placement Social History Smoking/Tobacco Use Status: Former Tobacco Use Smoking risk assessment performed?: Yes Alcohol Intake: former Drug use: Never Substance use type: does not use Do you feel safe at home: Yes Do you feel safe in your relationship?: Yes Meds Allergies and Home Medications Allergies Allergy/AdvReac Type Severity Reaction Status Date / Time bee venom protein (honey bee) Allergy Mild Cardiac Unverified 03/28/21 10:18 Dysrhythmia Penicillins Allergy Mild Hives, Verified 03/27/21 11:06 nausea simvastatin AdvReac Intermediate elevated Verified 03/27/21 11:06 liver enzymes atorvastatin AdvReac Mild elevated Verified 03/28/21 10:23 liver enzymes Hymenoptera AdvReac Intermediate heart Uncoded 03/28/21 10:23 racing, red face, headache Home Medications Medication Instructions Recorded Confirmed Type epinephrine 0.3 mg/0.3 mL 0.3 mg IM Q5-15M PRN 03/10/21 03/28/21 History injection, auto-injector acidophilus-sporogenes 1 tab PO DAILY #90 tab 03/12/21 03/28/21 Rx [Acidophilus Ex Str (L. sporog)] amoxicillin 875 mg-potassium 1 tab PO BID 10 Days #20 tab 03/27/21 03/28/21 Rx clavulanate 125 mg tablet metronidazole 500 mg tablet 500 mg PO DIRECTED #8 tab 03/27/21 03/28/21 Rx neomycin 500 mg tablet 500 mg PO DIRECTED #8 tab 03/27/21 03/28/21 Rx ondansetron HCl 4 mg tablet 8 mg PO Q8H PRN #3 tab 03/27/21 03/27/21 Rx Exam Resp Effort & Inspection: normal respiratory effort and able to speak in complete sentences Auscultation: clear to auscultation bilaterally Cardio Rate: regular rate Rhythm: regular rhythm GI Palpation: soft Auscultation: hypoactive bowel sounds Other: He is tender more on the left side and also some mild tenderness on the right side. He does not have diffuse peritonitis. He does have bowel sounds. He also has a small umbilical hernia. Results Labs Result diagrams: 03/28/21 10:39 03/28/21 10:39 Labs: Laboratory Results - last 24 hr 03/28/21 03/28/21 03/28/21 10:39 10:39 11:22 WBC 17.16 H RBC 4.96 Hgb 13.6 Hct 41.1 MCV 82.9 MCH 27.4 MCHC 33.1 RDW 14.0 Plt Count 338 MPV 9.7 Immature Gran % 0.4 Neutrophils % 83.1 Lymphocytes % 9.7 Monocytes % 6.3 Eosinophils % 0.2 Basophils % 0.3 Nucleated RBC % 0 Absolute Neutrophils 14.26 H Absolute Lymphocytes 1.66 Absolute Monocytes 1.08 H Absolute Eosinophils 0.03 Absolute Basophils 0.05 Sodium 138 Potassium 3.7 Chloride 101 Carbon Dioxide 27.9 Anion Gap 9.1 BUN 10 Creatinine 0.8 Estimated GFR/1.73 m2 >= 60.00 Glucose 122 H Calcium 9.0 Total Bilirubin 0.6 AST 12 L ALT 25 Alkaline Phosphatase 57 Total Protein 8.4 H Albumin 3.3 L Urine Color Urine Clarity Urine pH Ur Specific [place] Urine Protein Urine Ketones Urine Blood Urine Nitrite Urine Bilirubin Urine Urobilinogen Ur Leukocyte Esterase Urine Glucose COVID-19 Source Nasal/Nares 03/28/21 13:29 WBC RBC Hgb Hct MCV MCH MCHC RDW Plt Count MPV Immature Gran % Neutrophils % Lymphocytes % Monocytes % Eosinophils % Basophils % Nucleated RBC % Absolute Neutrophils Absolute Lymphocytes Absolute Monocytes Absolute Eosinophils Absolute Basophils Sodium Potassium Chloride Carbon Dioxide Anion Gap BUN Creatinine Estimated GFR/1.73 m2 Glucose Calcium Total Bilirubin AST ALT Alkaline Phosphatase Total Protein Albumin Urine Color Yellow Urine Clarity Clear Urine pH 5.5 Ur Specific [place] <= 1.005 Urine Protein Negative Urine Ketones Negative Urine Blood Negative Urine Nitrite Negative Urine Bilirubin Negative Urine Urobilinogen 0.2 Ur Leukocyte Esterase Negative Urine Glucose Negative COVID-19 Source Last Vital Signs Temp 36.7 C 03/28/21 10:11 Pulse 83 03/28/21 12:00 Resp 25 H 03/28/21 10:33 BP 159/95 H 03/28/21 12:00 Pulse Ox 97 03/28/21 12:10
[2021-03-28] MEDS: PIPERACILLIN/TAZO 3.375 GM in Normal Saline 50 ML IVPB ×2 (14:18→19:55)
[2021-03-28] MEDS: Ondansetron 4 MG/2 ML VIAL IVP (15:22)
[2021-03-28] MEDS: Lactated Ringers 1,000 ML 125 ML IV (15:23)
--- NOTE | 2021-03-28 15:42 | NUR.NOTE ---
Nursing Note: Pt report to Laquita (BLAYNE) on med-surg. All PT information transferred at this time. PT will be transported to floor by ED nursing staff.
[2021-03-28 16:21] LABS: C-Reactive Protein 11.12 mg/dL (0.0-0.3)
[2021-03-28] MEDS: Normal Saline 1,000 ML 125 ML IV (17:23)
[2021-03-28] MEDS: FAMOTIDINE 20 MG/50 ML BAG 200 MG IVPB (17:23)
[2021-03-28] MEDS: Enoxaparin 40 MG/0.4 ML SYR SC (17:24)
[2021-03-28] MEDS: ACETAMINOPHEN 1,000 MG/100 ML BTL 400 MG IVPB (18:16)
[2021-03-28 19:01] LABS: COVID-19 PCR Negative (Negative)
[2021-03-29] MEDS: Normal Saline 1,000 ML 125 ML IV ×3 (01:50→21:25)
[2021-03-29] MEDS: PIPERACILLIN/TAZO 3.375 GM in Normal Saline 50 ML IVPB ×4 (01:51→20:19)
[2021-03-29] MEDS: FAMOTIDINE 20 MG/50 ML BAG 200 MG IVPB ×2 (05:54→18:13)
[2021-03-29] MEDS: ACETAMINOPHEN 1,000 MG/100 ML BTL 400 MG IVPB ×4 (07:41→23:28)
[2021-03-29 07:43] LABS: Anion Gap 7.2 mmol/L (3-11); BUN 9 mg/dL (7-18); CO2 29.8 mmol/L (21.0-32.0); CREATININE 0.9 mg/dL (0.70-1.30); Calcium 8.3 mg/dL (8.5-10.1); Chloride 103 mmol/L (98-107); Glucose 119 mg/dL (74-106); Magnesium 2.1 mg/dL (1.8-2.4); Potassium 3.5 mmol/L (3.5-5.1); Sodium 140 mmol/L (136-145)
[2021-03-29 08:12] VITALS: BP 164/100; PULSE 84; RESP 18; TEMP 36; O2SAT 94
[2021-03-29 08:31] VITALS: TEMP 36
[2021-03-29] MEDS: Ondansetron 4 MG/2 ML VIAL IVP (08:31)
--- NOTE | 2021-03-29 09:09 | PGE_ITS ---
Date of Service Date of service: 03/29/21 Time of Service: 09:10 Assessment and Plan Assessment and plan (1) Colovesical fistula: Status: Acute Assessment and plan: -Continue IVF, recommended bowel rest at this time, has some liquids for comfort PRN -Continue IV antibiotics on Zosyn, can increase to Invanz if necessary -Plan for surgery Wednesday for takedown/repair of colovesical fistula and sigmoid colectomy -Lovenox for DVT ppx -Pepcid for GI ppx -Encourage ambulation (2) Diverticulitis: Status: Chronic (3) Borderline systolic HTN: Status: Acute Assessment and plan: -Continue to monitor will treat PRN (4) Borderline hyperlipidemia: Status: Acute Subjective Subjective Patient reports: no new complaints, feels better, flatus and nausea Exam Const General: cooperative, comfortable and no acute distress Resp Effort & Inspection: normal respiratory effort, no audible wheezes and no respiratory distress Cardio Rate: regular rate Rhythm: regular rhythm GI Inspection: normal to inspection and distended Palpation: soft, no guarding and tender in the LLQ and suprapubicly; with no rebound tenderness Percussion: tympanic to percussion Skin General skin exam: no rashes or lesions noted Neuro General: patient alert, patient awake and patient oriented x3 Objective Last Vital Signs Temp 96.8 F L 03/29/21 08:31 Pulse 68 03/28/21 23:50 Resp 18 03/28/21 23:50 BP 163/100 H 03/28/21 23:50 Pulse Ox 96 03/28/21 23:50 Laboratory Results - last 24 hr 03/28/21 03/28/21 03/28/21 10:39 10:39 11:22 WBC 17.16 H RBC 4.96 Hgb 13.6 Hct 41.1 MCV 82.9 MCH 27.4 MCHC 33.1 RDW 14.0 Plt Count 338 MPV 9.7 Immature Gran % 0.4 Neutrophils % 83.1 Lymphocytes % 9.7 Monocytes % 6.3 Eosinophils % 0.2 Basophils % 0.3 Nucleated RBC % 0 Absolute Neutrophils 14.26 H Absolute Lymphocytes 1.66 Absolute Monocytes 1.08 H Absolute Eosinophils 0.03 Absolute Basophils 0.05 Sodium 138 Potassium 3.7 Chloride 101 Carbon Dioxide 27.9 Anion Gap 9.1 BUN 10 Creatinine 0.8 Estimated GFR/1.73 m2 >= 60.00 Glucose 122 H Calcium 9.0 Magnesium Total Bilirubin 0.6 AST 12 L ALT 25 Alkaline Phosphatase 57 C-Reactive Protein 11.12 H Total Protein 8.4 H Albumin 3.3 L Urine Color Urine Clarity Urine pH Ur Specific [place] Urine Protein Urine Ketones Urine Blood Urine Nitrite Urine Bilirubin Urine Urobilinogen Ur Leukocyte Esterase Urine Glucose COVID-19 Source Nasal/Nares SARS-CoV-2 (PCR) Negative Patient ABO/Rh Antibody Screen 03/28/21 03/29/21 03/29/21 13:29 06:25 06:25 WBC RBC Hgb Hct MCV MCH MCHC RDW Plt Count MPV Immature Gran % Neutrophils % Lymphocytes % Monocytes % Eosinophils % Basophils % Nucleated RBC % Absolute Neutrophils Absolute Lymphocytes Absolute Monocytes Absolute Eosinophils Absolute Basophils Sodium 140 Potassium 3.5 Chloride 103 Carbon Dioxide 29.8 Anion Gap 7.2 BUN 9 Creatinine 0.9 Estimated GFR/1.73 m2 >= 60.00 Glucose 119 H Calcium 8.3 L Magnesium 2.1 Total Bilirubin AST ALT Alkaline Phosphatase C-Reactive Protein Total Protein Albumin Urine Color Yellow Urine Clarity Clear Urine pH 5.5 Ur Specific [place] <= 1.005 Urine Protein Negative Urine Ketones Negative Urine Blood Negative Urine Nitrite Negative Urine Bilirubin Negative Urine Urobilinogen 0.2 Ur Leukocyte Esterase Negative Urine Glucose Negative COVID-19 Source SARS-CoV-2 (PCR) Patient ABO/Rh O Positive Antibody Screen NEGATIVE
--- NOTE | 2021-03-29 09:25 | PDOC.CMIN ---
- If Service Date Differs Date of service: 03/29/21 Time of Service: 09:25 Care Management Initial Assess REASON FOR HOSPITALIZATION:: Acute on chronic diverticulitis, [place]-vesical fistula, buddy-colonic inflammation PAST MEDICAL HISTORY/PAST SURGICAL HISTORY:: Depression. Diverticulitis. High cholesterol. Hypertension. UTI (urinary tract infection). History of coronary artery stent placement PREVIOUS FUNCTIONAL STATUS/SOCIAL/FAMILY SUPPORTS:: Martin resides in [place], alone with his two dogs. He is and has a twin sister, Melani who resides in [facility] [facility] and is very supportive. 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 He also reports having another sister and brother who are supportive as well and plan on helping at home post discharge. He reports having a supportive work environment as well. CURRENT FUNCTIONAL STATUS:: Martin was lying in bed when CM met with him, he expressed some anxiety around his planned surgery for Wednesday but reported some relief at having a planned intervention after three months of dealing with ongoing diverticulitis, and pain. CM reviews activity cart and encourages Martin to ask questions; journal and pen provided to Martin to capture his thoughts and inquiries. CM briefly discussed possibility of stoma; Martin reported discussing this with Dr. Cortez, Dr. Vazquez and Dr. Aguilar and shared that he is aware it could be a possible outcome. He shares high hopes for feeling better post surgically. ADVANCE DIRECTIVES:: None on file at [facility]. Has patient been provided with info about the portal/API?: No Did the patient sign up for the portal?: No CODE STATUS:: Full Code INSURANCE COVERAGE / FINANCIAL ISSUES:: /BS CURRENT HOME/COMMUNITY SERVICES/EQUIPMENT:: None, currently. PRIMARY CARE PHYSICIAN:: Harjinder Dangelo POTENTIAL DISCHARGE NEEDS:: Surgical intervention, follow up appointments, ostomy teaching-coordination of supplies. PATIENT/FAMILY EDUCATION NEEDS:: Review of discharge instructions, discuss Ask Me Three. ANTICIPATED BARRIERS TO DISCHARGE:: Surgery, ostomy education and teaching anticipated at this time. TRANSPORTATION:: Via private vehicle with his sister or a friend. PLAN:: Per MD, the plan currently is for Martin to have surgery on Wednesday, unless he requires more urgent intervention over the weekend. CM continues to follow.
[2021-03-29 10:08] VITALS: RESP 18; O2SAT 94
[2021-03-29 10:34] LABS: Abs Immature Grans 0.04 10^3/uL (0.0-0.06); Absolute Basophil Count 0.05 10^3/uL (0.0-0.2); Absolute Eosinophil Count 0.06 10^3/uL (0.0-0.7); Absolute Lymphocyte Count 1.37 10^3/uL (1.2-3.4); Absolute Monocyte Count 0.98 10^3/uL (0.1-0.8); Basophils % 0.3; Eosinophils % 0.4; HCT 40.7 % (40.0-50.0); HGB 13.1 g/dL (13.5-17.5); Immature Grans % 0.3; Lymphocytes % 8.7; MCH 27.3 pg (27.0-33.0); MCHC 32.2 % (32.0-36.0); MPV 10.5 fL (8.0-11.0); Monocytes % 6.2; Neutrophils % 84.1; Nucleated RBC 0 %; Platelet Count 323 10^3/uL (130-400); RBC 4.79 10^6/uL (4.36-5.78); RDW 14.1 % (11.8-14.1); WBC 15.79 10^3/uL (4.4-10.8)
[2021-03-29 10:35] LABS: Absolute Neutrophil Count 13.28 10^3/uL (1.2-6.7)
[2021-03-29] MEDS: Enoxaparin 40 MG/0.4 ML SYR SC (11:49)
[2021-03-29 15:28] VITALS: BP 164/96; PULSE 72; RESP 18; TEMP 36.4; O2SAT 94
[2021-03-29] MEDS: Normal Saline Flush 10 ML SYR IVP ×2 (15:42→20:22)
[2021-03-29] MEDS: MORPHine 2 MG/ML SYR IVP (20:22)
[2021-03-29 23:24] VITALS: BP 156/94; PULSE 76; RESP 22; TEMP 36.7; O2SAT 95
[2021-03-30] MEDS: PIPERACILLIN/TAZO 3.375 GM in Normal Saline 50 ML IVPB ×4 (02:28→20:06)
[2021-03-30] MEDS: FAMOTIDINE 20 MG/50 ML BAG 200 MG IVPB ×2 (05:58→18:24)
[2021-03-30] MEDS: Normal Saline 1,000 ML 125 ML IV ×2 (05:58→16:01)
[2021-03-30 07:15] LABS: Abs Immature Grans 0.08 10^3/uL (0.0-0.06); Absolute Basophil Count 0.05 10^3/uL (0.0-0.2); Absolute Eosinophil Count 0.08 10^3/uL (0.0-0.7); Basophils % 0.3; Eosinophils % 0.5; HCT 39.5 % (40.0-50.0); HGB 12.8 g/dL (13.5-17.5); Immature Grans % 0.5; Lymphocytes % 10.1; MCH 27.3 pg (27.0-33.0); MCHC 32.4 % (32.0-36.0); MCV 84.2 fL (80-95); MPV 10.1 fL (8.0-11.0); Monocytes % 5.9; Neutrophils % 82.7; Nucleated RBC 0 %; Platelet Count 307 10^3/uL (130-400); RBC 4.69 10^6/uL (4.36-5.78); RDW 13.8 % (11.8-14.1); RDW-SD 42.5 fL; WBC 15.32 10^3/uL (4.4-10.8)
[2021-03-30 07:20] LABS: Absolute Lymphocyte Count 1.55 10^3/uL (1.2-3.4); Absolute Neutrophil Count 12.67 10^3/uL (1.2-6.7)
[2021-03-30 07:33] LABS: Anion Gap 4.2 mmol/L (3-11); BUN 9 mg/dL (7-18); CO2 31.8 mmol/L (21.0-32.0); CREATININE 0.9 mg/dL (0.70-1.30); Calcium 8.2 mg/dL (8.5-10.1); Chloride 104 mmol/L (98-107); Glucose 106 mg/dL (74-106); Potassium 3.8 mmol/L (3.5-5.1); Sodium 140 mmol/L (136-145)
[2021-03-30 07:40] VITALS: BP 164/95; PULSE 63; RESP 16; TEMP 36.4; O2SAT 97
[2021-03-30] MEDS: ACETAMINOPHEN 1,000 MG/100 ML BTL 400 MG IVPB ×3 (08:03→23:32)
[2021-03-30] MEDS: Ondansetron 4 MG/2 ML VIAL IVP ×2 (08:20→19:13)
[2021-03-30] MEDS: Metoclopramide 10 MG/2 ML VIAL IVP ×3 (08:20→20:05)
[2021-03-30] MEDS: Normal Saline Flush 10 ML SYR IVP ×4 (08:20→20:06)
--- NOTE | 2021-03-30 09:34 | W.PM.PROGNOT ---
Date of Service Date of service: 03/30/21 Time of Service: 09:34 Assessment and Plan Assessment and plan (1) Colovesical fistula: Status: Acute Assessment and plan: -Continue current treatment, IVF, IV antibiotics, bowel rest -PRN analgesics as written -IV Reglan ordered to help with motility and nausea -Encourage ambulation -Lovenox for DVT ppx -Pepcid for GI ppx -Plan for OR tomorrow AM for exploratory laparotomy with takedown/repair of colovesical fistula and sigmoid colectomy with Dr. Vazquez -NPO after midnight (2) Diverticulitis, colon: Status: Acute (3) Borderline systolic HTN: Status: Acute Subjective Subjective Patient reports: no new complaints, feels better, pain is less, flatus and afebrile; denies bowel movement, nausea and vomiting Exam Const General: cooperative, comfortable and no acute distress Resp Effort & Inspection: normal respiratory effort, no audible wheezes and no respiratory distress Cardio Rate: regular rate Rhythm: regular rhythm GI Inspection: normal to inspection and distended (improved) Palpation: soft and tender in the LLQ and suprapubicly Skin General skin exam: no rashes or lesions noted Neuro General: patient alert, patient awake and patient oriented x3 Objective Last Vital Signs Temp 97.5 F L 03/30/21 07:40 Pulse 63 03/30/21 07:40 Resp 16 03/30/21 07:40 BP 164/95 H 03/30/21 07:40 Pulse Ox 97 03/30/21 07:40 Laboratory Results - last 24 hr 03/29/21 03/30/21 03/30/21 06:25 06:45 06:45 WBC 15.79 H 15.32 H RBC 4.79 4.69 Hgb 13.1 L 12.8 L Hct 40.7 39.5 L MCV 85.0 84.2 MCH 27.3 27.3 MCHC 32.2 32.4 RDW 14.1 13.8 Plt Count 323 307 MPV 10.5 10.1 Immature Gran % 0.3 0.5 Neutrophils % 84.1 82.7 Lymphocytes % 8.7 10.1 Monocytes % 6.2 5.9 Eosinophils % 0.4 0.5 Basophils % 0.3 0.3 Nucleated RBC % 0 0 Absolute Neutrophils 13.28 H 12.67 H Absolute Lymphocytes 1.37 1.55 Absolute Monocytes 0.98 H 0.90 H Absolute Eosinophils 0.06 0.08 Absolute Basophils 0.05 0.05 Sodium 140 Potassium 3.8 Chloride 104 Carbon Dioxide 31.8 Anion Gap 4.2 BUN 9 Creatinine 0.9 Estimated GFR/1.73 m2 >= 60.00 Glucose 106 Calcium 8.2 L Magnesium 2.0
[2021-03-30] MEDS: Enoxaparin 40 MG/0.4 ML SYR SC (11:40)
[2021-03-30] MEDS: MORPHine 2 MG/ML SYR IVP (11:48)
[2021-03-30 15:42] VITALS: BP 162/94; PULSE 72; RESP 16; TEMP 36.6; O2SAT 96
[2021-03-30] MEDS: Bisacodyl 5 MG TABEC 10 MG PO (17:02)
[2021-03-30] MEDS: Polyethylene Glycol 3350 238 GM BTL PO (17:55)
[2021-03-30] MEDS: metroNIDAZOLE 500 MG TAB 2000 MG PO ×2 (20:04→23:32)
[2021-03-30] MEDS: Ciprofloxacin 500 MG TAB 1000 MG PO ×2 (20:04→23:32)
[2021-03-30] MEDS: Ondansetron O.D.T. 4 MG TABEF PO (22:09)
[2021-03-30 23:00] VITALS: BP 168/97; PULSE 63; RESP 16; TEMP 36.3; O2SAT 95
[2021-03-31] VITALS (56 sets, daily range): BP systolic 116–165; BP diastolic 73–98; PULSE 59–90; RESP 15–30; TEMP 35.8–36.6; O2SAT 89–98; BMI 31.9
--- NOTE | 2021-03-31 00:40 | NUR.NOTE ---
at 2150, patient verbalized he can only tolerate 2 out of 4(590 ml) bottles of gatorade with bowel prep, but he was able to drink another 200 mls of gatorade with bowel prep on the 3rd bottle. Patient had 2 small bouts of Bowel Movements and verbalized that his abdomen is crampy and feels swollen and bloated. He had 2 episodes of nausea and vomiting each of 100mls of clear liquid when the bowel prep started. Patiet feels nauseous,m swollen and bloated. Instructed patient to rest and will monitor crampy pain together with nausea and vomiting, but instructed needs to take the ciprofloxacin and metronidazole bowel prep meds at 2300. Patient was able to take the cipro and metro bowel meds and was able to take sips of water before midnight. zofran and reglan given for nausea and vomiting
[2021-03-31] MEDS: Normal Saline 1,000 ML 125 ML IV ×2 (01:29→17:15)
[2021-03-31] MEDS: Normal Saline Flush 10 ML SYR IVP ×3 (02:53→22:59)
[2021-03-31] MEDS: PIPERACILLIN/TAZO 3.375 GM in Normal Saline 50 ML IVPB ×4 (02:53→23:42)
[2021-03-31] MEDS: Metoclopramide 10 MG/2 ML VIAL IVP (02:53)
[2021-03-31] MEDS: FAMOTIDINE 20 MG/50 ML BAG 200 MG IVPB ×2 (05:58→17:59)
--- NOTE | 2021-03-31 07:05 | W.ANESPRE ---
General Info Date of Service Date Performed: 03/31/21 Height: 5 ft 11 in Weight: 103.9 kg Body Mass Index (BMI): 31.9 Surgical Procedure: Operation Date: 03/31/21 07:50 Proposed Procedures Side Surgeon p Exploratory Laparotomy/SIGMOID RESECTION ? COLOSTOMY VS DIVERTING ILIEOSTOMY Christianne Vazquez, DO s Stent Placement During Surgery Ambrocio Ruiz MD Meds Allergies and Home Medications Allergies Allergy/AdvReac Type Severity Reaction Status Date / Time bee venom protein (honey bee) Allergy Mild Cardiac Unverified 03/28/21 10:18 Dysrhythmia Penicillins Allergy Mild Hives, Verified 03/27/21 11:06 nausea simvastatin AdvReac Intermediate elevated Verified 03/27/21 11:06 liver enzymes atorvastatin AdvReac Mild elevated Verified 03/28/21 10:23 liver enzymes Hymenoptera AdvReac Intermediate heart Uncoded 03/28/21 10:23 racing, red face, headache Home Medication Medication Instructions Recorded epinephrine 0.3 mg/0.3 mL 0.3 mg IM Q5-15M PRN 03/10/21 injection, auto-injector acidophilus-sporogenes 1 tab PO DAILY #90 tab 03/12/21 [Acidophilus Ex Str (L. sporog)] amoxicillin 875 mg-potassium 1 tab PO BID 10 Days #20 tab 03/27/21 clavulanate 125 mg tablet metronidazole 500 mg tablet 500 mg PO DIRECTED #8 tab 03/27/21 neomycin 500 mg tablet 500 mg PO DIRECTED #8 tab 03/27/21 ondansetron HCl 4 mg tablet 8 mg PO Q8H PRN #3 tab 03/27/21 Current Visit Medications: Current Medications Generic Name Dose Route Start Last Admin Trade Name Freq PRN Reason Stop Dose Admin Sodium Chloride 500 mls @ 0 mls/hr 03/28/21 13:53 Saline 500ml Bag IV PRN PRN As Directed Sodium Chloride 1,000 mls @ 125 mls/hr 03/28/21 14:00 03/31/21 01:29 Saline 1000ml Bag IV 125 mls/hr INFUSION BRUNO Administration Piperacillin Sod/Tazobactam 50 mls @ 100 mls/hr 03/28/21 20:00 03/31/21 03:25 Sod 3.375 gm/ Sodium Chloride IVPB Infused Q6H BRUNO Infusion Protocol Acetaminophen 1,000 mg in 100 mls @ 400 mls/hr 03/28/21 16:00 03/31/21 00:00 Ofirmev IVPB Infused Q8H BRUNO Infusion Famotidine 20 mg in 50 mls @ 200 mls/hr 03/28/21 18:00 03/31/21 05:58 Pepcid Premixed Bag IVPB 200 mls/hr Q12H BRUNO Administration IV Miscellaneous Supplies 1 each 03/28/21 14:00 Iv Access IV DIRECTED BRUNO Lactobacillus Acidophilus/Casei 1 cap 03/29/21 08:30 03/30/21 08:19 L. Acidophilus, Casei, Rhamnosus Cap PO 1 cap DAILY BRUNO Administration Morphine Sulfate 2 mg 03/28/21 13:53 03/30/21 11:48 Morphine 2 Mg/Ml Syr IVP 2 mg Q1H PRN PRN Administration Ondansetron HCl 4 mg 03/28/21 13:53 03/30/21 19:13 Ondansetron 4 Mg/2 Ml Vial IVP 4 mg Q4H PRN PRN Administration Sodium Chloride 0 ml 03/28/21 12:37 03/31/21 02:53 Normal Saline Flush 10 Ml Syr IVP 10 ml PRN PRN Administration Sodium Chloride 0 ml 03/28/21 13:53 Normal Saline Flush 10 Ml Syr IVP PRN PRN PFSH Active Problems Active Problems: Problem Status Onset Code Diverticulitis K57.92 Diverticulitis, colon K57.32 Colonic diverticular abscess K57.20 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 Borderline systolic HTN R03.0 Borderline hyperlipidemia E78.5 Medical History Medical History Depression Diverticulitis High cholesterol Hypertension UTI (urinary tract infection) Surgical History Surgical History History of coronary artery stent placement Tobacco Smoking/Tobacco Use Status: Former Tobacco Use Alcohol Alcohol Intake: former Substance Use Substance use: Never Substance use type: does not use Vital Signs and Lab Results Vital Signs Most Recent Vital Signs in EMR: Most Recent Vital Signs Temp Pulse Resp BP Pulse Ox 35.8 C L 74 18 165/98 H 95 03/31/21 05:46 03/31/21 05:46 03/31/21 05:46 03/31/21 05:46 03/31/21 05:46 Lab Results Result Diagrams: 03/31/21 06:10 03/30/21 06:45 Blood Type / Crossmatch: Patient ABO/Rh O Positive 03/29/21 06:25 03/29/21 Antibody Screen NEGATIVE 03/29/21 06:25 03/29/21 Complete Blood Count: White Blood Count 15.31 10^3/uL (4.4-10.8) H 03/31/21 06:10 03/31/21 Red Blood Count 4.57 10^6/uL (4.36-5.78) 03/31/21 06:10 03/31/21 Hemoglobin 12.4 g/dL (13.5-17.5) L 03/31/21 06:10 03/31/21 Hematocrit 38.6 % (40.0-50.0) L 03/31/21 06:10 03/31/21 Platelet Count 318 10^3/uL (130-400) 03/31/21 06:10 03/31/21 Complete Metabolic Panel: Sodium Level 140 mmol/L (136-145) 03/30/21 06:45 03/30/21 Potassium Level 3.8 mmol/L (3.5-5.1) 03/30/21 06:45 03/30/21 Chloride Level 104 mmol/L (98-107) 03/30/21 06:45 03/30/21 Carbon Dioxide Level 31.8 mmol/L (21.0-32.0) 03/30/21 06:45 03/30/21 Blood Urea Nitrogen 9 mg/dL (7-18) 03/30/21 06:45 03/30/21 Creatinine 0.9 mg/dL (0.70-1.30) 03/30/21 06:45 03/30/21 Estimated GFR/1.73 m2 >= 60.00 (mL/min/1.73m2) 03/30/21 06:45 03/30/21 Magnesium Level 2.0 mg/dL (1.8-2.4) 03/30/21 06:45 03/30/21 Calcium Level 8.2 mg/dL (8.5-10.1) L 03/30/21 06:45 03/30/21 Albumin 3.3 g/dL (3.4-5.0) L 03/28/21 10:39 03/28/21 Glucose Level 106 mg/dL (74-106) 03/30/21 06:45 03/30/21 C-Reactive Protein 11.12 mg/dL (0.0-0.3) H 03/28/21 10:39 03/28/21 Liver Function Panel: Alanine Aminotransferase (ALT/SGPT) 25 U/L (16-63) 03/28/21 10:39 03/28/21 Aspartate Amino Transf (AST/SGOT) 12 U/L (15-37) L 03/28/21 10:39 03/28/21 Coagulation Panel: No Data to Display Cardiac Panel: No Data to Display Arterial Blood Gas: No Data to Display Venous Blood Gas: No Data to Display Pancreas Panel: No Data to Display Thyroid Panel: No Data to Display Infectious Disease: Coronavirus (COVID-19)(PCR) Negative (Negative) 03/28/21 11:22 03/28/21 Coronavirus 2019 Source Nasal/Nares 03/28/21 11:22 03/28/21 Blood Cultures: No Data to Display Toxicology Panel: No Data to Display Anesthesia Assessment and Plan Anesthesia History Personal History: No History of Anesthesia Complications Family History: No Family History of Anesthesia Complications Exercise Tolerance Exercise Tolerance: Metabolic Equivalents>4 Pertinent Negatives Pertinent Negatives: No Symptoms of GERD, No Major Cardiovascular Symptoms or Complaints, No Major Pulmonary Symptoms or Complaints and No History of CVA/TIA Cardiac & Pulmonary Exam Cardiac Exam: Normal S1/S2 Heart Sounds Pulmonary Exam: Clear Bilateral Breath Sounds Airway Exam Known Difficult Airway: No Mallampati Class: 2 Mouth Opening: Normal (> 3cm) Thyromental Distance: Greater than 3 cm Neck Range of Motion: Full ROM Neck Circumference: Normal Teeth Condition: Normal Dentition ASA Classification ASA Score: ASA 3 Emergency Case?: No NPO Status NPO Status: NPO Clears >2 hours, Solids >8 hours Anesthesia Plan Resuscitation Status: Full Code Anesthesia Technique: General Anesthesia Airway Planned: Endotracheal Tube Pain Management: Epidural Monitors Used: Standard Monitors
[2021-03-31 07:08] LABS: Abs Immature Grans 0.07 10^3/uL (0.0-0.06); Absolute Eosinophil Count 0.08 10^3/uL (0.0-0.7); Absolute Monocyte Count 0.93 10^3/uL (0.1-0.8); Basophils % 0.3; Eosinophils % 0.5; HCT 38.6 % (40.0-50.0); HGB 12.4 g/dL (13.5-17.5); Immature Grans % 0.5; Lymphocytes % 10.1; MCH 27.1 pg (27.0-33.0); MCHC 32.1 % (32.0-36.0); MCV 84.5 fL (80-95); MPV 10.2 fL (8.0-11.0); Monocytes % 6.1; Neutrophils % 82.5; Nucleated RBC 0 %; Platelet Count 318 10^3/uL (130-400); RBC 4.57 10^6/uL (4.36-5.78); RDW 13.8 % (11.8-14.1); RDW-SD 43.1 fL; WBC 15.31 10^3/uL (4.4-10.8)
[2021-03-31 07:10] LABS: Absolute Basophil Count 0.05 10^3/uL (0.0-0.2); Absolute Lymphocyte Count 1.55 10^3/uL (1.2-3.4); Absolute Neutrophil Count 12.63 10^3/uL (1.2-6.7)
[2021-03-31 07:22] LABS: ALT 11 U/L (16-63); AST 10 U/L (15-37); Albumin 2.5 g/dL (3.4-5.0); Alkaline Phosphatase 51 U/L (46-116); Anion Gap 5.8 mmol/L (3-11); BUN 7 mg/dL (7-18); Bilirubin, Total 0.4 mg/dL (0.2-1.0); CO2 31.2 mmol/L (21.0-32.0); CREATININE 0.8 mg/dL (0.70-1.30); Calcium 8.1 mg/dL (8.5-10.1); Chloride 103 mmol/L (98-107); Glucose 105 mg/dL (74-106); Magnesium 1.8 mg/dL (1.8-2.4); Potassium 3.3 mmol/L (3.5-5.1); Sodium 140 mmol/L (136-145); Total Protein 6.5 g/dL (6.4-8.2)
--- NOTE | 2021-03-31 07:51 | W.PM.PROGNOT ---
Date of Service Date of service: 03/31/21 Time of Service: 07:52 Assessment and Plan Assessment and plan (1) Diverticulitis: Status: Chronic Assessment and plan: Informed consent is obtained for the procedural (explained in simple layman's terms that the pt and/or family could understand) explaining risks vs benefits and alternatives to the procedure and consequences if we do not do the procedure. Risks include but are not limited to:bleeding,infections, pneumonia, blood clots/DVT/PE, anesthesia(aspiration, damage to teeth/airway/[place]/CVA//prolonged mechanical ventilation/PTX/IV infections), damage to bowel, bladder,blood vessels, ureters. hernias. complications of ostomy. Wound infections requiring further surgery. Scarring and disfigurement. Subsequent bowel obstructions from scar tissue. (2) Hypoalbuminemia due to protein-calorie malnutrition: Status: Acute (3) Borderline systolic HTN: Status: Acute (4) Borderline hyperlipidemia: Status: Acute Subjective Subjective Interval history since last seen: still c/o pain and low grade temp wbc 15 alb 2.5 was able to complete prep reviewed procedure and risks. pt will require some type of stoma and we did d/w this. Dr. Joseph edgar place stents. hosp 4-7 days postOP. Exam Resp Effort & Inspection: normal respiratory effort and able to speak in complete sentences Auscultation: clear to auscultation bilaterally Cardio Rate: regular rate Rhythm: regular rhythm GI Other: isolated LLQ pain. + BS Extrem General: no clubbing, cyanosis or edema Objective Last Vital Signs Temp 35.8 C L 03/31/21 05:46 Pulse 74 03/31/21 05:46 Resp 18 03/31/21 05:46 BP 165/98 H 03/31/21 05:46 Pulse Ox 95 03/31/21 05:46 Laboratory Results - last 24 hr 03/31/21 03/31/21 03/31/21 05:35 06:10 06:10 WBC 15.31 H RBC 4.57 Hgb 12.4 L Hct 38.6 L MCV 84.5 MCH 27.1 MCHC 32.1 RDW 13.8 Plt Count 318 MPV 10.2 Immature Gran % 0.5 Neutrophils % 82.5 Lymphocytes % 10.1 Monocytes % 6.1 Eosinophils % 0.5 Basophils % 0.3 Nucleated RBC % 0 Absolute Neutrophils 12.63 H Absolute Lymphocytes 1.55 Absolute Monocytes 0.93 H Absolute Eosinophils 0.08 Absolute Basophils 0.05 Sodium 140 Potassium 3.3 L Chloride 103 Carbon Dioxide 31.2 Anion Gap 5.8 BUN 7 Creatinine 0.8 Estimated GFR/1.73 m2 >= 60.00 Glucose 105 Calcium 8.1 L Magnesium 1.8 Total Bilirubin 0.4 AST 10 L ALT 11 L Alkaline Phosphatase 51 Total Protein 6.5 Albumin 2.5 L Patient ABO/Rh Cancelled
[2021-03-31] MEDS: Lactated Ringers 1,000 ML 80 ML IV ×2 (08:01→18:04)
[2021-03-31] MEDS: Lidocaine 2% Jelly 6 ML SYR (08:28)
[2021-03-31] MEDS: Bupivacaine 0.25% Pres-Free 30 ML VIAL (09:06)
--- NOTE | 2021-03-31 09:07 | W.PM.OP ---
Date of service: 03/31/21 Time of Service: 09:07 Operative Note Operative Note DATE OF PROCEDURE: 03/31/21 PRE-OP DIAGNOSIS: Diverticulitis POST-OP DIAGNOSIS: same PROCEDURE: Cystoscopy with insertion bilateral ureteral stents SURGEON: Ambrocio Ruiz ANESTHESIA TYPE: Local By Surgeon and General LMA/ETT Refer to Anesthesia Record ESTIMATED BLOOD LOSS: 0 PATHOLOGY: none sent COMPLICATIONS: None Patient was transported to: no change Patient's condition: other (anesthetized) Implants: 5 [place] open ended ureteral catheters 16 [place] gutierrez catheter Indications: This is a 50-year-old gentleman who has diverticulitis with a colovesical fistula. He will be undergoing colon resection today. I have been asked to place ureteral stents to help identify the ureters intraoperatively. Findings: Feculent urine Procedure Description: Patient was brought to the operating room on 03/31/2021. He was placed in the dorsal lithotomy position. His genitalia was prepped and draped. 2% Xylocaine jelly was instilled into the urethra. A 22 [place] rigid cystoscope was passed through the urethra into the bladder. The urethra and bladder were inspected with a 30 degree lens. The pendulous, bulbar and membranous urethra's appeared normal. The prostatic urethra showed minimal lateral lobe enlargement with no significant median lobe. The bladder neck was entered and the bladder was drained. Feculent urine was obtained. Each ureteral orifice was visualized. Each orifice was then cannulated with a 5 [place] open-ended ureteral access catheter. The catheters were advanced until resistance was met. The scope was removed leaving the catheter is in place. A 16 [place] Gutierrez catheter was then advanced through the urethra into the bladder. The catheter balloon was inflated with 10 cc of sterile water. The ureteral stents were then brought into the lumen of the Gutierrez catheter and all catheters were hooked to gravity drainage. The patient tolerated this procedure well with no complications. The patient remained anesthetized in the operating room for his general surgery procedure.
--- NOTE | 2021-03-31 10:15 | BOWEL_PTH ---
PATIENT: Martin Santiago LOC: U#:[id number] AGE/SX: 50/M ROOM: MS.206 RE03/28/[address]: Christianne Vazquez : 1970 BED: A DIS: 04/06/2021 SPEC #: [id number] RECD: 03/31/21 18:58 STATUS: SOUPauly REQ #: [id number] KIRA: 03/31/21 10:[address]: Christianne Vazquez DEPT: Surgical Specimen RECD BY: Vicky Mercer ENTERED: 03/31/21 18:58 SP TYPE: Bowel OTHR DR: Harjinder Dangelo Tissues: 1 - BOWEL RESECTION(OTHER) Procedures: GROSS AND MICRO LEVEL 5 Comments: [id number]
--- NOTE | 2021-03-31 10:15 | W.ANESNEU ---
Epidural/Spinal Catheter Date Performed: 03/31/21 Procedure Start: 07:35 Procedure Stop: 07:55 Requesting Provider: Christianne Vazquez Procedure Location: PACU Reason Performed: Postoperative Analgesia Standard Monitors Applied: Blood Pressure, SpO2 and See EMR for corresponding vital signs Patient Position: Sitting Sedation Given (Indicate Dose Given): Versed IV Dose:: 2 mg Patient Mental Status: Sedate with meaningful communication Sterility: Hand Hygiene, Surgical Cap, Surgical Mask, Sterile Gloves, Sterile Drape/Sheet and Chlorhexidine Procedure Location: L2-L3 Interspace Epidural Needle: Tuohy 18 Gauge Needle Length: 3.5 Inch Needle Approach: Midline Epidural Procedure: Skin Prepped, Sterile Drape Placed, 1% Lidocaine to skin and subcutaneous tissue with 25G needle, Tuohy Needle placed, MARIANEN to Air Used, MARIANNE to Saline Used, Epidural Catheter Placed, Negative Heme, Negative CSF Flow and Tuohy Needle Removed Catheter Placed?: Catheter Placed Test Dose (Indicate Dose Given): 3ml 1.5% Lidocaine with 1:200K Epinephrine Given Loss of Resistance Depth (cm): 8 Catheter depth at skin (cm): 13 Dressing: Sorbaview Dressing Placed, Mastisol Used and Dressing reinforced with Tape Epidural Provider Bolus (Indicate Dose Given): None Given (Started intraop) Additives (Indicate Dose Given ): None Infusion Medication: Medication Infusion Began Medication Infusion: Ropivacaine 0.1% with Fentanyl 2mcg/ml (Started 09:07) Maintenance Infusion Rate (ml/hour): 0 PCEA Bolus Dose (ml): 0 Block Level: N/A Paresthesia: None Ultrasound: Not Used Number of Attempts (See previous attempts in note section): 2 Procedure Tolerated: No Complications Procedure Outcome: Successful Performed By: Ernie Powell Supervised By: Alejo Merritt
[2021-03-31] MEDS: FentaNYL/ROPIvacaine 2 mcg/ml and 0.1% 200 ML CADD Cassette EP (13:00)
--- NOTE | 2021-03-31 13:04 | W.PM.OP ---
Date of service: 03/31/21 Time of Service: 13:04 Operative Note Operative Note DATE OF PROCEDURE: 03/31/21 PRE-OP DIAGNOSIS: subacute/chronic diverticulitis and colo-vesicle fistula POST-OP DIAGNOSIS: other (Exploratory laparotomy, diverting colostomy, proctoscopy) PROCEDURE: diverting colostomy SURGEON: Christianne Vazquez DEVELOPER [employer] MECHANICAL: Cathy Navarro ANESTHESIA TYPE: Local By Surgeon, General LMA/ETT and Epidural Refer to Anesthesia Record ESTIMATED BLOOD LOSS: 200 PATHOLOGY: none sent Patient was transported to: ICU Patient's condition: other (anesthetized) Procedure Description: Dr. Ruiz did place stents preoperatively, for assistance in identifying the ureters. The urine was initially quite dark, from hydration. It was also slightly blood-tinged. Patient has developed a subacute diverticulitis that is failed to respond to medical management, and is here today for exploratory laparotomy, possible sigmoid resection and takedown of colovesical fistula, and possible colostomy possible vs diverting ileostomy. Informed consent is obtained explaining risks and benefits of the procedure. Patient understands that he will most likely have some type of stoma postoperatively. Patient underwent a mechanical bowel prep as well as a antibiotic bowel prep. He has been on IV antibiotics all weekend. All questions are answered to his satisfaction and he is stable to proceed today. Epidural anesthesia was placed by the department of anesthesia prior to coming into the operative room suite. Please see Dr. Ruiz's separate dictation for the stent placement. As we are getting ready to draped for the colon portion of the case, the patient does have a large amount of thick brown stool that is expelled. The rectum is irrigated with a liter of saline with 50 cc of Betadine . There does not seem to be any further liquid stool. He is placed in low lithotomy stirrups for the possibility of an EEA stapler. The abdomen was prepped and draped in the usual sterile fashion. Timeout was completed. NG tube was placed. Sifuentes catheter was placed along with the stents. He did receive preop antibiotics. He has a midline for IV access. SCDs are applied. A midline laparotomy incision was made with a #10 blade scalpel and subcutaneous tissues were with electrocautery down to the peritoneum. The peritoneum is entered bluntly through a small umbilical hernia, and further divided using electrocautery. There was a slight amount of serous fluid upon entering the abdomen. Cultures were sent. The Omni retractor system was used With 4 retractor systems holding back the sidewalls of the abdomen. The abdomen is then explored. He has a large inflammatory mass in the sigmoid colon but also in the rectosigmoid area. This is adhered up to the bladder. I cannot even feel the balloon of the Sifuentes. The small bowel is run and this is normal in appearance. Stomach and liver are palpated and are grossly normal. The colon itself is massively dilated. There is a serosal tear in the wall of the cecum. This is not full-thickness. Trying to visualize with the immensely dilated colon, is counterproductive. The colon is drained through the rent in the cecum. Probably a liter of liquid stool was removed. The enterotomy in the cecum is repaired in 2 layers with 2-0 Vicryl and 2-0 silk. The rent on the cecum was repaired with 2 stitches of 2-0 silk. The left colon, is divided and midway using a laparoscopic curvilinear stapler for thick tissue. The white line of Toldt is then opened up sharply down to the rectosigmoid area. The ureter is noted. Once we have the sigmoid stump freed, up I did attempt to dissect down into the pelvis and to remove the sigmoid from the bladder. There is intimte adherence between the rectum and bladder, and it is tightly adhered to the bladder and I am unable to develope a plane. There is not so much infection, as just dense inflammatory reaction and currently is not amendable to repair. Attempts at excision are abandoned. The ends of the rectal-sigmoid suture line are oversewn using 2-0 Vicryl. A long black silk suture is left in the midportion of the rectosigmoid stump. A 19 mm round drain is placed through the right lower quadrant and into the pelvis. The proximal sigmoid and the remainder of the left colon is then freed up along bowel white line of Toldt, using combination of blunt dissection and sharp dissection. This is taken up to the splenic flexure. The ureters were identified. The mesentery was transected using the LigaSure.. The site for the colostomy had been chosen with the patient and he had been marked preoperatively. This is lateral and slightly below the umbilicus on the left side. A Aarti was used to grasp the skin; circular skin incision is made using a #10 blade. The skin is excised. Electrocautery was used to dissect down and create a cruciate incision through the fascia and peritoneum. This is stretched to accommodate the proximal limb of the colon. Some of the fatty attachments and subcutaneous tissue are removed. The limb of the sigmoid is brought through. The fatty attachments are taken down from the sigmoid colon. There does not appear to be any tension on our limb. The abdomen is then copiously irrigated with 2 L of saline. All saline is removed. There is no bleeding from our dissection sites. There is no bleeding from our attempted pelvic dissection. There was concern that perhaps this was a missed malignancy versus An obstruction, that would inhibit drainage from the sigmoid. At this point a colonoscope was introduced into the rectosigmoid stump. It just shows severe infection and inflammation and narrowing, but there is not an overt obstruction. And there are no signs of malignancy. Pictures were taken but biopsies were not; the scope was then removed. Gowns and gloves are exchanged. There is no signs of a damage to staple line on the rectosigmoid stump. All structures are returned to their normal anatomic positions. interseed is placed on the lateral sidewalls of the rectosigmoid colon, as well as directaly under the incision. Peritoneum was closed with 0 Vicryl in a running fashion. 3 retention sutures of #3 nylon are placed. There is a significant amount of edema in the abdominal wall and in the abdominal cavity. He does have some what of the thickened abdominal wall and retension sutures are placed to help prevent dehiscence. Fascia is then closed with #1 PDS in a running fashion. The fat pad is then copiously irrigated. Deep tissues were reapproximated using 2-0 Vicryl. The skin is then loosely closed with caro. Betadine soaked pledgets are placed between the caro. Red rubber catheter is used for the bolsters on the retention sutures. Sterile dressings are applied Attention is then turned to maturation of the colostomy. The ostomy had been tacked down to the peritoneum and fascia using 2-0 Vicryl. The first centimeter of the sigmoid does have quite a bit of venous congestion, and this is sacrificed when removing the stapleline. The colostomy was then matured with the double suture at the 12, 3, 6 and 9 Compass points. The remainder of the osotmy is then matured with simple stitches of 4-0 Vicryl. There is a good lumen. The stoma appears pink and healthy. There is no tension. Appliance is applied. The patient was awakened and transferred to PACU in satisfactory condition. The patient tolerated the procedure well. He is going to be started on TPN. He has had greater than 5 days of no oral intake, hypoalbuminemia, and is at nutritional risk. He is going to be kept in the ICU overnight because of the complexity of care. He tolerated anesthesia very well and had no problems with hypotension throughout the case. Family was apprised of findings. The wound team will be consulted for ostomy cares and teaching. A PICC line will be placed later on today for TPN.
--- NOTE | 2021-03-31 13:32 | W.ANESPOSTOP ---
Postoperative Evaluation Date, Time and Location Date Performed: 03/31/21 Time Performed: 13:00 Patient Location: PACU Vital Signs Most Recent Imported Vital Signs: Most Recent Vital Signs Temp Pulse Resp BP Pulse Ox 36.6 C 74 15 122/88 98 03/31/21 13:00 03/31/21 13:00 03/31/21 13:00 03/31/21 13:00 03/31/21 13:00 Pain Score Most Recent Pain Score: Most Recent Pain Score Pain Level 0 03/31/21 13:00 Assessment Mental Status: Arousable with meaningful communication Airway and Respiratory Function: Patent airway with normal (patient baseline) respiratory exam Cardiovascular Function: Hemodynamically Stable Hydration Status: Adequately Hydrated Nausea & Vomiting: No Nausea or Vomiting Pain: Pain is tolerable per patient Peripheral Nerve Block: Patient did not receive a nerve block
--- NOTE | 2021-03-31 15:46 | W.NUTCONSULT ---
Date of service: 03/31/21 Time of Service: 15:46 Nutritional Consult ASSESSMENT: 50 year old male NPO s/p colovesical fistula repair/ostomy secondary to diverticulitis. BMI 31.9, weight stable > 1 year. Labs indicate low albumin and > 5 days of inadequate po intake indicative of protein calorie malnutrition. TPN started to support lean body mass and immune function. Labs indicate low levels of K, Calcium, AST/ ALT. Estimated Needs: 3874-1479 kcal (BEE x 1.2-1.3), 82-103 g protein (0.8-1.9 g pro/kg) TPN Order supplemented with standard electrolytes, multivitamin/trace elements. D10/4.25 Amino Acids 2000 ml run at 85.9 cc/hour 20% lipids 250 ml run at 31.25 ml/hour provides: 1520 kcal, 82 grams protein, 55 g fat Current TPN order meeting 65% of caloric needs, 100% of protein and fat needs NUTRITIONAL DIAGNOSIS: Moderate malnutrition due to acute illness as evidenced by low albumin and extended period of time with inadequate macronutrient intake. INTERVENTION: Continue current TPN order and monitor electrolytes. If TPN expected to run > 5 days, recommend adjusting TPN to meet 100% of caloric needs. Please check prealbumin to assess nutritional status prior to surgery. MONITORING AND EVALUATION: labs, weight Time Spent in Nutritional Counseling and Treatment: 20
[2021-03-31] MEDS: ACETAMINOPHEN 1,000 MG/100 ML BTL 400 MG IVPB ×2 (17:16→23:43)
--- NOTE | 2021-03-31 18:41 | PDOC.CMPRO ---
- If Service Date Differs Date of service: 03/31/21 Time of Service: 18:41 Care Management Progress Note S/O: Martin was in the operating room for most of the day, CM attempted to visit several times. He was later admitted to the ICU post surgically. Per report, he had a procedure for a diverting colostomy, which may be able to be reversed in approximately three months. CM will continue to follow and support discharge planning considerations. A: Martin is a 50 year old male admitted to [facility] on 03/28/21 with diverticulitis, colo vesical fistula. P: Anticipate Martin will return home when medically cleared. He will require ostomy teaching and coordination of supplies prior to discharge. He will be driven home via private vehicle by family when ready. He will follow up with his PCP and discharge plan of care. CM will continue to follow.
--- NOTE | 2021-03-31 18:55 | W.PM.PROGNOT ---
Date of Service Date of service: 03/31/21 Time of Service: 18:57 Assessment and Plan Assessment and plan (1) Diverticulitis: Status: Chronic Assessment and plan: The patient is doing well post-op. Their pain is well controlled. They are having no nausea or vomiting. The pt is not having any chest pain or SOB, productive cough; no calf pain or swelling. The pt is making good urine. The pt pain is adequately controlled. The case was discussed with nursing and patient?s progress reviewed. All of the pt's home medications were addressed and adjusted accordingly for their oral intact status. HEENT: no jaundice. no eye pain/drainage/redness/swelling. Mild sore throat Cardio- NSR no chest pain, BP stable. Pulm: no sob or productive cough. no hemoptysis Incision- clean/dry. Dressing intact no excessive bleeding or drainage ostomy- pink/patent drain- 100cc sero-sang I discussed with the patient and/or there family about the findings in surgery and the pt's progress. We reviewed expectations for progress in the hospital; what the pt could expect for recovery time and length of stay. We discussed the importance of walking and pulmonary toilet to avoid blood clots and pneumonia. Continue current plans for pulmonary toilet, GI and DVT prophylaxis. We shall continue the current plan for pain management as it is at an appropriate level, and working well for the pt. Appropriate measures will be taken for constipation prevention, and this was also reviewed with the pt. The wound care plan was reviewed with nursing as well. see orders (2) Hypoalbuminemia due to protein-calorie malnutrition: Status: Acute (3) Colovesical fistula: Status: Acute (4) Borderline systolic HTN: Status: Acute (5) Borderline hyperlipidemia: Status: Acute Objective Last Vital Signs Temp 36.2 C L 03/31/21 14:45 Pulse 65 03/31/21 13:15 Resp 21 03/31/21 13:15 BP 123/84 03/31/21 13:15 Pulse Ox 97 03/31/21 13:15 Laboratory Results - last 24 hr 03/31/21 03/31/21 03/31/21 05:35 06:10 06:10 WBC 15.31 H RBC 4.57 Hgb 12.4 L Hct 38.6 L MCV 84.5 MCH 27.1 MCHC 32.1 RDW 13.8 Plt Count 318 MPV 10.2 Immature Gran % 0.5 Neutrophils % 82.5 Lymphocytes % 10.1 Monocytes % 6.1 Eosinophils % 0.5 Basophils % 0.3 Nucleated RBC % 0 Absolute Neutrophils 12.63 H Absolute Lymphocytes 1.55 Absolute Monocytes 0.93 H Absolute Eosinophils 0.08 Absolute Basophils 0.05 Sodium 140 Potassium 3.3 L Chloride 103 Carbon Dioxide 31.2 Anion Gap 5.8 BUN 7 Creatinine 0.8 Estimated GFR/1.73 m2 >= 60.00 Glucose 105 Calcium 8.1 L Magnesium 1.8 Total Bilirubin 0.4 AST 10 L ALT 11 L Alkaline Phosphatase 51 Total Protein 6.5 Albumin 2.5 L Patient ABO/Rh Cancelled
--- NOTE | 2021-03-31 19:31 | WOUNDCONS ---
- If Service Date Differs Date of service: 03/31/21 Time of Service: 16:00 Wound Initial Evaluation Narrative: Patient is a 50 yom, seen here for acute on chronic diverticulitis. Patient was taken to the OR today for a colon resection with subsequent colostomy being placed . I was approached by Dr. Vazquez after the procedure. She was under the assumption that I was a certified Ostomy coding and reimbursement specialist. I told her that I was a WCC, Not an OMS, however that I would be happy to speak to the patient and his family, and work with them to start a plan to manage the new appliance. Patient was still very groggy at the time that I saw him. His sisters were present, and they were very happy to discuss a plan of care and management of the device with them. I also informed the family that I was not a certified OMS, but would be willing to discuss the plan of care with them. They told me on the patient's behalf, that the plan was to reverse the colostomy after several months. However they had concerns about the care and service of the appliance. I answered their questions one by one. First how often would they need to change the device. They were under the impression that the bag would have to be changed daily. I explained to them that was not entirely true. I explained to them that generally bags needed to be changed every 3-5 days. I explained to them that there were factors involved, like amount of flow or gas. Consistency of the flow, (liquid vs. solid).Also discussed with them that factors such as adherence, and condition of the peristomal skin could influence how long a bag would last between changes. They questioned home health role in the maintenance of the appliance. I explained to them while home health would be a wonderful asset in the care of the ostomy, that the patient or a family member would have to have the knowledge to apply an ostomy appliance as home health was not a 24 hour seven day a week service, example, should the device fail in the middle of the night. After further discussion about equipment and maintenance, I proposed a plan of care for the patient. Both family and patient agrees that this is a good way to start. At this point, patient's primary nurse was brought in on the conversation. After a little further discussion, patient and family was presented with an ostomy teaching kit. All parties agree that ostomy teaching will start tomorrow. Surgical wound was covered and dressed and was clean and dry. stoma was brick red, ostomy bag was intact, and had put out a little amount of liquid bloody stool. - Treatment/Dressing Change Dressing Types: Adaptic (Contact Layer) - Recomendation Recomendation:: Ostomy teaching to begin the day of April 01. Patient has been given a mirror, on the he will start by watching his primary nurses observe as they provide care and empty his ostomy appliance. Over the course of the next few days , patient will be encouraged to take a more active role in emptying and cleaning his ostomy appliance. As he gains further confidence in cleaning and caring for his ostomy, the next goal would be for him to cut and apply an ostomy appliance to the practice stoma in his ostomy teaching kit. Nursing and wound nursing will continue to encourage and assist the patient with continuing education as far as monitoring and managing his appliance. Monitor for problems, such as leakage, odor, or peristomal skin issues and manage them. Goal for the patient is for him and his family to independently manage his ostomy appliance by the time he discharges home. Patient and family agree with the POC. This is discussed with Dr. Vazquez, she also agrees with the POC. thank you for allowing us to participate with your wound care. Physcian/Nurse Practioner Notified: Yes (Dr. Vazquez)
[2021-03-31] MEDS: Insulin Aspart 300 UNITS/3 ML PEN SC ×2 (22:00→23:40)
[2021-03-31] MEDS: Enoxaparin 40 MG/0.4 ML SYR SC (22:01)
[2021-04-01] VITALS (27 sets, daily range): BP systolic 107–144; BP diastolic 64–87; PULSE 46–76; RESP 12–27; TEMP 35.7–37.1; O2SAT 90–97
[2021-04-01] MEDS: FentaNYL/ROPIvacaine 2 mcg/ml and 0.1% 200 ML CADD Cassette EP ×2 (02:35→17:34)
[2021-04-01] MEDS: FAMOTIDINE 20 MG/50 ML BAG 200 MG IVPB ×2 (06:30→18:23)
[2021-04-01] MEDS: PIPERACILLIN/TAZO 3.375 GM in Normal Saline 50 ML IVPB ×4 (06:30→23:50)
[2021-04-01] MEDS: Insulin Aspart 300 UNITS/3 ML PEN SC ×3 (06:38→17:49)
--- NOTE | 2021-04-01 07:51 | W.PM.PROGNOT ---
Documented by User: GAEL Soto 04/01/21 07:57 Date of Service Date of service: 04/01/21 Time of Service: 07:51 Assessment and Plan Assessment and plan (1) Diverticulitis: Status: Chronic Assessment and plan: POD #1 s/p exploratory laparotomy with diverting colostomy. Continue IVF and IV antibiotics Epidural in place with good pain control. Defer management to anesthesia Sifuentes- pink tinged urine Colostomy- Soft stool output Drain- bloody serous drainage DVT prophylaxsisl, PPI Awaiting PT consult today. Encouraged use of incentive spirometer, deep breathing and sitting in the chair BP is stable and pain is well controlled. Increase in WBC most likely response to surgery. (2) Hypoalbuminemia due to protein-calorie malnutrition: Status: Acute (3) Colovesical fistula: Status: Acute (4) Borderline systolic HTN: Status: Acute (5) Borderline hyperlipidemia: Status: Acute Subjective Subjective Interval history since last seen: Patient reports he is feeling well this morning 2-310PL. He reports that his L LE is more numb than his R LE. He reports that he is eager to participate in PT today. Exam Const General: cooperative, healthy appearing and comfortable Orientation: alert and oriented x3 Resp Effort & Inspection: normal respiratory effort, no audible wheezes and no cough GI Palpation: soft, no guarding and tender Other: Bravo drain- thin bloody fluid Colostomy- dark brown soft stool Other: Sifuentes with pink tinged urine Objective Last Vital Signs Temp 36.6 C 04/01/21 03:15 Pulse 52 L 04/01/21 06:00 Resp 15 04/01/21 06:00 BP 119/69 04/01/21 06:00 Pulse Ox 93 04/01/21 06:00 Documented by User: Christianne Vazquez DO 04/01/21 08:40 Assessment and Plan Assessment and plan (1) Colovesical fistula: Status: Acute Assessment and plan: pt seen and examined. agree w/ above. pt notes left leg is 90% numb and is concerned about walking doing good w/ IS minimal pain +output from NGT transfer med surg today
[2021-04-01 07:55] LABS: HCT 36.5 % (40.0-50.0); HGB 11.8 g/dL (13.5-17.5); MCH 26.9 pg (27.0-33.0); MCHC 32.3 % (32.0-36.0); MCV 83.1 fL (80-95); MPV 10.8 fL (8.0-11.0); Platelet Count 309 10^3/uL (130-400); RBC 4.39 10^6/uL (4.36-5.78); RDW-SD 42.6 fL; WBC 17.82 10^3/uL (4.4-10.8)
[2021-04-01 08:04] LABS: Anion Gap 1.6 mmol/L (3-11); BUN 14 mg/dL (7-18); C-Reactive Protein 13.72 mg/dL (0.0-0.3); CO2 33.4 mmol/L (21.0-32.0); CREATININE 0.7 mg/dL (0.70-1.30); Calcium 7.9 mg/dL (8.5-10.1); Chloride 105 mmol/L (98-107); Glucose 148 mg/dL (74-106); Magnesium 2.2 mg/dL (1.8-2.4); PHOSPHORUS 2.7 mg/dL (2.6-4.7); Potassium 3.6 mmol/L (3.5-5.1); Sodium 140 mmol/L (136-145)
[2021-04-01 08:44] LABS: Iron 18 ug/dL (65-175); Total Iron Binding Capacity 100 ug/dL (250-450); Transferrin Sat 18 % (20-55)
--- NOTE | 2021-04-01 09:00 | CMPROGNOTE_ITS ---
- If Service Date Differs Date of service: 04/01/21 Time of Service: 09:00 Care Management Progress Note S/O: Martin was admitted to the ICU post surgically yesterday, after a procedure for a diverting colostomy, which may be able to be reversed in approximately three months, per MD. He was lying in bed, using good humor and reported being in high spirits. He shared that he anticipated having increased pain today and tomorrow, but was feeling better overall. CM will continue to follow and support discharge planning considerations. A: Martin is a 50 year old male admitted to [facility] on 03/28/21 with diverticulitis, colo vesical fistula. P: Anticipate Martin will return home when medically cleared. He will require ostomy teaching and coordination of supplies prior to discharge. He will be driven home via private vehicle by family when ready. He will follow up with his PCP and discharge plan of care. CM will continue to follow.
--- NOTE | 2021-04-01 09:41 | W.ANESEPD ---
Epidural/Spinal Daily Note Date Performed: 04/01/21 Assessment Time: 09:41 Patient Location: Intensive Care Unit Catheter Type in Place: Epidural Catheter Dressing Assessment: Dressing intact with good adherence Catheter Assessment: Catheter Labeled and Intact and Functioning Previous Catheter Depth Noted (cm): 13 Current Catheter Depth (cm): 13 Current Medication Infusion: Ropivacaine 0.1% with Fentanyl 2mcg/ml Current Maintenance Infusion Rate (ml/hour): 10 Current PCEA Bolus Dose (ml): 5 Current Pain Score (0-10): 2 Medication Infusion Stopped, Catheter Removal Planned: No Sensory / Motor Block Comments: Pt relates motor weakness left more than right. Motor assessment of lower extremities appreciating moderate strength bilaterally without notable unilateral weakness. Adequate analgesia reported by pt and ICU nurse. New Bolus Given or Change in Infusion Made: No Completed By: Ernie Powell Supervised By: Rachel Berg
[2021-04-01] MEDS: ACETAMINOPHEN 1,000 MG/100 ML BTL 400 MG IVPB ×3 (09:50→23:42)
--- NOTE | 2021-04-01 10:45 | W.NUTRFU ---
Date of service: 04/01/21 Time of Service: 10:45 Nutritional Follow up NOTE: Mr. Santiago is NPO s/p exploratory laparotomy with diverting colostomy. His intake was poor prior to his surgery however his weight is fairly stable thus no s/sx of malnutrition at this time. When he is able to resume his PO intake, will provide high protein foods and/or supplements to help with wound healing. BMI is 32.8 kg/m2 c/w class 1 obesity. Will continue to follow his progress. Will evaluate nutrition care plan ongoing and adjust as needed. Time Spent in Nutritional Counseling and Treatment: 0
--- NOTE | 2021-04-01 11:52 | IN_ITS ---
Date of service: 04/01/21 Time of Service: 11:52 PT Notes Visit Reasons: acute on chronic diverticulitis, [place]-vesical fist Physical Therapy Inpatient Initial Evaluation Date: Apr 01, 2021 Referring Doctor: Christianne Vazquez MD PT Orders: PT CONSULT: Eval/Treat Beverley is a 50-year-old male who presented to the ED on Mar 28, 2021 Precautions: Fall. Standard. Activity as tolerated. Patient Profile/Admitting Diagnosis: Martin is a 50-year-old male who presented t o the ED on Mar 28, 2021 due to worsening abdominal pain. Patient is diagnosed with colovesicular fistula and subacute/chronic diverticulitis and is status post exploratory laparotomy, diverting colostomy placement, and proctoscopy on postoperative day 1. PMHX: Medical History Depression Diverticulitis High cholesterol Hypertension UTI (urinary tract infection) Surgical History History of coronary artery stent placement Social History/Home Situation: Lives alone in a private home with 3 steps to enter with rails on both sides. There is a flight to the 2nd floor of the house where his bathroom is a rail on the right side. 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 Independent with all aspects of ADLs prior to surgery. Has 2 dogs. Equipment Owned/DME: None Subjective: Agreeable to PT consult. Denies pain, chest pain, headache, and lightheadedness. Did report heaviness and numbness on the left LE. Elaborates that yesterday he felt numbness in both lower extremities. Objective: General Observation: Epidural pump in place. Telemetry monitoring in place. Surgical dressing over abdominal incision in place. Sifuentes catheter in place. Mental Status: Alert and oriented as to person, place, time, and purpose. Able to pay attention, focus, and respond appropriately. Pain: 0/10 in surgical incision. 1-2/10 with weight bearing. ROM: Right Upper Extremity: Shoulder Flexion WFL. Shoulder abduction WFL. Elbow flexion WFL. Wrist flexion WFL. Functional opening and closing of hand WFL. Left Upper Extremity: Shoulder Flexion WFL. Shoulder abduction WFL. Elbow flexion WFL. Wrist flexion WFL. Functional opening and closing of hand WFL. Right Lower Extremity: Hip flexion WFL. Hip abduction WFL. Knee flexion WFL. Ankle dorsiflexion WFL. Ankle plantarflexion WFL. Left Lower Extremity: Hip flexion lacks the last 25 % of hip flexion in supine due to discomfort and feeling of heaviness. Hip abduction WFL. Knee flexion WFL. Knee extension WFL ankle dorsiflexion WFL. Ankle plantarflexion WFL. Strength: Right Upper Extremity: Shoulder flexors 5/5. Shoulder abductors 5/5. Elbow flexors 5/5. Elbow extensors 5/5. Enterprise Integration Architect strong. Left Upper Extremity: Shoulder flexors 5/5. Shoulder abductors 5/5. Elbow flexors 5/5. Elbow extensors 5/5. Enterprise Integration Architect strong. Right Lower Extremity: Hip flexors 5/5. Hip abductors 5/5. Knee flexors 5/5. Knee extensors 5/5. Ankle dorsiflexors 5/5. Ankle plantarflexors 5/5. Left Lower Extremity: Hip flexors 3-/5. Hip abductors 4-/5. Knee flexors 4/5. Knee extensors 3+/5. Ankle dorsiflexors 5/5. Ankle plantarflexors 5/5. Bed Mobility/Transfers: Supine to sit hand-held assist to right Sit to stand contact-guard assist Stand to sit standby assist Bed to chair contact-guard assist Gait: Instructed patient with level surface ambulation of 60 feet requiring contact-guard assist. Mony decreased due to numerous lines/attachments. Left quad impaired/delayed activation with a left knee partial knee giving way x 2 but without LOB. Step-to gait pattern due to mild instability on the left knee. Balance: Static Sitting: Normal Dynamic Sitting: Normal Static Standing: Fair Dynamic Standing: Fair Special Tests: Mobility Limitations Standardized Measure [facility] AM-PAC 6 clicks Basic Mobility Inpatient Short Form: Raw Score: 19 CMS Score: 42% deficit Informed Consent/Education: Patient was instructed in purpose of PT consult and plan of care. Agreeable to proceed with established PT POC to achieve personal goals. Assessment: Impaired activation on the left lower quadrant limits safety of level surface ambulation and thus will require the use of a front wheel walker and assistance of another care to reduce fall risk. Patient presents with clinical signs and symptoms consistent with current/admitting diagnoses that have resulted to mobility limitations, gait instability, generalized weakness, and overall ADL decline as demonstrated by the following impairment level findings: 1. Decreased strength to left hip and knee major muscle groups 2. Impaired standing balance 3. Impaired activity tolerance 4. Limitation of joint range of motion in L hip 5. Impaired quadriceps activation on the L Impairments are contributing to the following functional limitations: 1. Decline in bed mobility skills 2. Decline in transfer skills 3. Difficulty with ambulation without assistive device and physical assistance 4. Increased completion time for mobility ADL performance 5. Increased risk for falls 6. Difficulty with managing steps alone safely Patient is assessed as a 12110 moderate 51 complexity based on the following: History: -year-old male with past medical history as indicated above Examination: Demonstrable impairment in strength, balance, and mobility level with underlying impairments and functional limitations as exhibited above as well as deficit score of 42% utilizing the [facility] Mobility Inpatient Short Form Presentation: Evolving Decision Makin moderate complexity Goals: Goals X1 week 1. Supine-Sit independent 2. Sit-Supine independent 3. Sit-Stand independent 4. Stand-Sit independent with no AD 5. Bed-Chair independent with no AD 6. Chair-Bed independent with no AD 7. Independent gait on level surface with use of no AD for at least 300 feet without report of pain nor dyspnea 8. Independent stair negotiation while holding onto B rails for at least 5 steps without report of pain nor dyspnea 9. Independent with home exercise program 10. Good static and dynamic standing balance/tolerance Plan of Care/Treatment Plan: 1-2x/day, 7 days/week x 1 week. Plan of care has been reviewed with the BANQUET STEWARD providing the service under Physical Therapy direction. Initiate Physical Therapy intervention for pain management as needed, strengthening, bed mobility, transfers, gait, stairs, balance training, and use of assistive device. DISCHARGE RECOMMENDATIONS: Outpatient PT services if left LE weakness and impaired L quad activation persists. May benefit from the use of front wheeled walker versus single-point cane upon discharge. TREATMENT CODE/TIME: 03950 x 20 min, 14029 x 18 min beginning at 11:52 AM. Thank you for the opportunity to participate in the care of this patient. Leydi Feliciano PT, DPT, CLT [facility] [place], [place]
--- NOTE | 2021-04-01 15:00 | PTTR_ITS ---
Date of service: 04/01/21 Time of Service: 13:39 PT Notes Visit Reasons: acute on chronic diverticulitis, [place]-vesical fist Inpatient Physical Therapy Treatment Note [facility] Date: 04/01/2021 PRECAUTIONS: Activity as tolerated SUBJECTIVE: Martin is pleasant and agreeable to participating in PT. He states that he is feeling pretty good, but that his L LE is still numb. OBJECTIVE: PAIN: Patient c/o abdominal pain with [id number]-[id number] transfer BED MOBILITY/TRANSFERS Sit-supine: Min A with HOB flat Sit-stand: SBA Stand-sit: SBA GAIT Assistive Device: FWW Weight bearing: Full Assist: CGA Distance: 100' Deviation: Delayed L quad activation, L knee give way x1 without LOB THEREX: Patient was instructed in a supine LE strengthening and stabilization program, as per flow sheet. ASSESSMENT: Patient tolerated session well with minimal complaint of abdominal pain with [id number] transfer. He was able to tolerate a progression in gait distance with FWW support and CGA. Patient requires cueing to look up and for increased step length and height. PLAN: Continue with global strengthening and bed mobility training for improved mobility and activity tolerance. TREATMENT CODE/TIME: 23 minutes; 55993 x2 (13:39)
[2021-04-01] MEDS: IRON SUCROSE COMPLEX 200 MG in Normal Saline 100 ML 400 MG IVPB (15:26)
--- NOTE | 2021-04-01 19:17 | NUR.NOTE ---
Pt transferred from ICU to medr room 206. Nursing Note:
[2021-04-01] MEDS: Normal Saline Flush 10 ML SYR IVP ×2 (20:24→23:51)
[2021-04-01] MEDS: Enoxaparin 40 MG/0.4 ML SYR SC (21:25)
[2021-04-02] VITALS (8 sets, daily range): BP systolic 136–171; BP diastolic 80–111; PULSE 60–68; RESP 14–20; TEMP 33.6–36.4; O2SAT 95–98
[2021-04-02] MEDS: Ondansetron 4 MG/2 ML VIAL IVP ×4 (03:45→16:07)
[2021-04-02] MEDS: Normal Saline Flush 10 ML SYR IVP ×6 (03:46→22:15)
[2021-04-02] MEDS: PIPERACILLIN/TAZO 3.375 GM in Normal Saline 50 ML IVPB ×3 (05:28→19:07)
[2021-04-02] MEDS: FAMOTIDINE 20 MG/50 ML BAG 200 MG IVPB ×2 (05:28→18:27)
[2021-04-02 07:42] LABS: Anion Gap 3.4 mmol/L (3-11); BUN 13 mg/dL (7-18); CO2 32.6 mmol/L (21.0-32.0); CREATININE 0.7 mg/dL (0.70-1.30); Calcium 7.8 mg/dL (8.5-10.1); Chloride 105 mmol/L (98-107); Glucose 141 mg/dL (74-106); Magnesium 2.1 mg/dL (1.8-2.4); PHOSPHORUS 2.5 mg/dL (2.6-4.7); Potassium 3.4 mmol/L (3.5-5.1); Sodium 141 mmol/L (136-145)
[2021-04-02] MEDS: ACETAMINOPHEN 1,000 MG/100 ML BTL 400 MG IVPB ×2 (07:55→17:01)
--- NOTE | 2021-04-02 08:36 | W.PM.PROGNOT ---
Date of Service Date of service: 04/02/21 Time of Service: 08:36 Assessment and Plan Assessment and plan (1) Diverticulitis: Status: Chronic Assessment and plan: POD #2 s/p exploratory laparotomy with diverting colostomy. No fevers, Will check CBCD Continue IVF and IV antibiotics Epidural in place with good pain control. Defer management to anesthesia Sifuentes- pink tinged urine Colostomy- Continued Soft stool output Drain- bloody serous drainage DVT prophylaxis, PPI Patient reports working with PT yesterday. Encouraged continued use of incentive spirometer, deep breathing and sitting in the chair (2) Hypoalbuminemia due to protein-calorie malnutrition: Status: Acute (3) Colovesical fistula: Status: Acute (4) Borderline systolic HTN: Status: Acute (5) Borderline hyperlipidemia: Status: Acute Subjective Subjective Interval history since last seen: The patient reports feeling rough this morning. He had increase in pain and nausea. He states this is slightly improved following a bolus from the epidural, tylenol and zofran. He denies any fevers, chills or night sweats. Exam Const General: cooperative, healthy appearing and comfortable Orientation: alert and oriented x3 Resp Effort & Inspection: normal respiratory effort, no audible wheezes and no cough GI Palpation: soft, guarding and tender (generalized) Objective Last Vital Signs Temp 33.6 C L 04/02/21 08:00 Pulse 63 04/02/21 08:00 Resp 14 04/02/21 08:00 BP 171/111 H 04/02/21 08:00 Pulse Ox 95 04/02/21 08:00 Laboratory Results - last 24 hr 04/01/21 04/02/21 06:20 06:35 Sodium 141 Potassium 3.4 L Chloride 105 Carbon Dioxide 32.6 H Anion Gap 3.4 BUN 13 Creatinine 0.7 Estimated GFR/1.73 m2 >= 60.00 Glucose 141 H Calcium 7.8 L Phosphorus 2.5 L Magnesium 2.1 Iron 18 L TIBC 100 L Transferrin % Sat 18 L
[2021-04-02] MEDS: FentaNYL/ROPIvacaine 2 mcg/ml and 0.1% 200 ML CADD Cassette EP (09:58)
[2021-04-02 10:53] LABS: Absolute Basophil Count 0.05 10^3/uL (0.0-0.2); Absolute Monocyte Count 0.78 10^3/uL (0.1-0.8); Absolute Neutrophil Count 14.55 10^3/uL (1.2-6.7); Basophils % 0.3; Eosinophils % 0.2; HCT 37.4 % (40.0-50.0); HGB 11.8 g/dL (13.5-17.5); Immature Grans % 1.2; Lymphocytes % 7.7; MCH 27.1 pg (27.0-33.0); MCHC 31.6 % (32.0-36.0); MCV 85.8 fL (80-95); MPV 9.9 fL (8.0-11.0); Monocytes % 4.6; Nucleated RBC 0 %; Platelet Count 321 10^3/uL (130-400); RBC 4.36 10^6/uL (4.36-5.78); RDW 14.1 % (11.8-14.1); WBC 16.92 10^3/uL (4.4-10.8)
[2021-04-02 10:58] LABS: Absolute Eosinophil Count 0.03 10^3/uL (0.0-0.7)
[2021-04-02 11:04] LABS: Anion Gap 1.8 mmol/L (3-11); BUN 12 mg/dL (7-18); CO2 32.2 mmol/L (21.0-32.0); CREATININE 0.6 mg/dL (0.70-1.30); Calcium 7.7 mg/dL (8.5-10.1); Chloride 105 mmol/L (98-107); Glucose 170 mg/dL (74-106); Potassium 3.6 mmol/L (3.5-5.1); Sodium 139 mmol/L (136-145)
[2021-04-02] MEDS: Insulin Aspart 300 UNITS/3 ML PEN SC ×2 (11:56→19:27)
--- NOTE | 2021-04-02 14:41 | PTTR_ITS ---
Date of service: 04/02/21 Time of Service: 12:15 PT Notes Visit Reasons: Acute on Chronic Diverticulitis,[place]-Vesical Fist Inpatient Physical Therapy Treatment Note [facility] Date: 04/02/2021 PRECAUTIONS: Activity as tolerated SUBJECTIVE: Martin states that he is not feeling well today, he reports that he has been nauseous most of the day and that he is having increased pain in his abdominal area compared to yesterday. OBJECTIVE: PAIN: Patient c/o abdominal pain at rest, increasing with supine-sit transfer BED MOBILITY/TRANSFERS Supine-sit: Min A with HOB at 20 degrees Sit-stand: SBA Stand-sit: SBA GAIT Assistive Device: FWW Weight bearing: Full Assist: SBA Distance: ~60' Deviation: Nauseous, numbness of L LE, slow pacing, short step length and height ASSESSMENT: Patient demonstrates decreased activity tolerance today compared to yesterday, due to nausea and increased surgical pain. He continues to have L LE numbness, likely due to epidural, causing him to demonstrate short step length and height. PLAN: Continue with global strengthening for improved mobility. TREATMENT CODE/TIME: 26 minutes; 20728 x2 (12:15)
--- NOTE | 2021-04-02 18:51 | CMPROGNOTE_ITS ---
- If Service Date Differs Date of service: 04/02/21 Time of Service: 18:51 Care Management Progress Note S/O: Martin was sitting up in bed when CM met with him. He reported that he was feeling ok today, and per MD, he may be ready for discharge home by the end of the week. He stated that he is looking forward to going home, but is nervous. His diet was advanced to clear liquids today. CM will continue to follow. A: Martin is a 50 year old male admitted to [facility] on 03/28/21 with diverticulitis, colo vesical fistula. P: Anticipate Martin will return home when medically cleared. He will require ostomy teaching and coordination of supplies prior to discharge. He will be driven home via private vehicle by family when ready. He will follow up with his PCP and discharge plan of care. CM will continue to follow.
[2021-04-02] MEDS: Enoxaparin 40 MG/0.4 ML SYR SC (22:16)
[2021-04-03] VITALS (11 sets, daily range): BP systolic 120–155; BP diastolic 81–97; PULSE 57–77; RESP 14–20; TEMP 35.4–36.7; O2SAT 95–98
[2021-04-03] MEDS: PIPERACILLIN/TAZO 3.375 GM in Normal Saline 50 ML IVPB ×5 (00:19→23:49)
[2021-04-03] MEDS: ACETAMINOPHEN 1,000 MG/100 ML BTL 400 MG IVPB ×4 (00:19→23:49)
[2021-04-03] MEDS: Normal Saline Flush 10 ML SYR IVP ×10 (00:20→23:48)
[2021-04-03] MEDS: FentaNYL/ROPIvacaine 2 mcg/ml and 0.1% 200 ML CADD Cassette EP ×2 (03:15→21:22)
[2021-04-03] MEDS: FAMOTIDINE 20 MG/50 ML BAG 200 MG IVPB ×2 (05:49→17:39)
--- NOTE | 2021-04-03 07:29 | W.PM.PROGNOT ---
Documented by User: GAEL Soto 04/03/21 07:39 Date of Service Date of service: 04/03/21 Time of Service: 07:29 Assessment and Plan Assessment and plan (1) Diverticulitis: Status: Chronic Assessment and plan: POD #3 s/p exploratory laparotomy with diverting colostomy. Patient was lying in bed smiling upon this providers arrival. Continue IVF and IV antibiotics Epidural in place with good pain control. Defer management to anesthesia Sifuentes- pink tinged urine Colostomy- Good stool and air output Continue with Colostomy Education. Drain- bloody serous drainage DVT prophylaxis, PPI Patient reports working with PT yesterday. Encouraged continued use of incentive spirometer, deep breathing and sitting in the chair (2) Hypoalbuminemia due to protein-calorie malnutrition: Status: Acute (3) Colovesical fistula: Status: Acute (4) Borderline systolic HTN: Status: Acute (5) Borderline hyperlipidemia: Status: Acute Subjective Subjective Interval history since last seen: Patient reports that he is feeling better this morning compared to yesterday. He denies any fevers or chills at this time. Exam Const General: cooperative, healthy appearing and comfortable Orientation: alert and oriented x3 Resp Effort & Inspection: normal respiratory effort, no audible wheezes and no cough GI Palpation: soft, no guarding and tender (Generalized abdominal tenderness with palpation) Other: (+) Liquid brown stool and air in colostomy Objective Last Vital Signs Temp 35.4 C L 04/03/21 05:55 Pulse 57 L 04/03/21 05:55 Resp 16 04/03/21 05:55 BP 146/89 H 04/03/21 05:55 Pulse Ox 97 04/03/21 05:55 Laboratory Results - last 24 hr 04/02/21 04/02/21 04/02/21 06:35 10:44 10:44 WBC 16.92 H RBC 4.36 Hgb 11.8 L Hct 37.4 L MCV 85.8 MCH 27.1 MCHC 31.6 L RDW 14.1 Plt Count 321 MPV 9.9 Immature Gran % 1.2 Neutrophils % 86.0 Lymphocytes % 7.7 Monocytes % 4.6 Eosinophils % 0.2 Basophils % 0.3 Nucleated RBC % 0 Absolute Neutrophils 14.55 H Absolute Lymphocytes 1.30 Absolute Monocytes 0.78 Absolute Eosinophils 0.03 Absolute Basophils 0.05 Sodium 141 139 Potassium 3.4 L 3.6 Chloride 105 105 Carbon Dioxide 32.6 H 32.2 H Anion Gap 3.4 1.8 L BUN 13 12 Creatinine 0.7 0.6 L Estimated GFR/1.73 m2 >= 60.00 >= 60.00 Glucose 141 H 170 H Calcium 7.8 L 7.7 L Phosphorus 2.5 L Magnesium 2.1 Documented by User: Christianne Vazquez DO 04/03/21 16:36 Assessment and Plan Assessment and plan (1) Diverticulitis: Status: Chronic Assessment and plan: -Patient seen and examined agree with above. -Hopefully will take out epidural catheter tomorrow insertion transition to oral pain control.. (2) Hypoalbuminemia due to protein-calorie malnutrition: Status: Acute
--- NOTE | 2021-04-03 07:36 | W.ANESEPD ---
Epidural/Spinal Daily Note Date Performed: 04/03/21 Assessment Time: 07:55 Patient Location: Med/Surg Catheter Type in Place: Epidural Catheter Dressing Assessment: Dressing intact with good adherence Catheter Assessment: Catheter Labeled and Intact and Functioning Previous Catheter Depth Noted (cm): 13 Current Catheter Depth (cm): 13 Current Medication Infusion: Ropivacaine 0.1% with Fentanyl 2mcg/ml Current Maintenance Infusion Rate (ml/hour): 10 Current PCEA Bolus Dose (ml): 5 Current Pain Score (0-10): 0 (Pain with movement) Medication Infusion Stopped, Catheter Removal Planned: No Sensory / Motor Block Comments: Patient relates numbness to LLE, able to perceive pressure but not cold or sharp sensations. Motor function strong and equal in bilateral lower extremities. Physical therapy was present at time of interview and reported asymmetrical gait during therapy that has been improving. The patient expressed satisfaction with pain control. New Bolus Given or Change in Infusion Made: No Daily Management Comments: Discussed eventual removal of catheter. Completed By: Ernie Powell Supervised By: Alejo Merritt
[2021-04-03 08:12] LABS: Anion Gap 2.1 mmol/L (3-11); BUN 10 mg/dL (7-18); CO2 32.9 mmol/L (21.0-32.0); CREATININE 0.7 mg/dL (0.70-1.30); Calcium 7.6 mg/dL (8.5-10.1); Chloride 105 mmol/L (98-107); Glucose 107 mg/dL (74-106); Magnesium 2.1 mg/dL (1.8-2.4); PHOSPHORUS 3.2 mg/dL (2.6-4.7); Potassium 3.1 mmol/L (3.5-5.1); Sodium 140 mmol/L (136-145)
[2021-04-03] MEDS: Normal Saline 500 ML 100 ML IV (08:40)
--- NOTE | 2021-04-03 09:45 | CMPROGNOTE_ITS ---
- If Service Date Differs Date of service: 04/03/21 Time of Service: 12:39 Care Management Progress Note S/O: Martin remains pleasant in interaction and has begun ostomy teaching with nursing. Per Dr. Vazquez, anticipated discharge, Wednesday04/06/21-[facility] notified today. CM continues to follow. A: Martin is a 50 year old male admitted to [facility] on 03[facility]21 with diverticulitis, colo vesical fistula. P: Anticipate Martin will return home when medically cleared. He will require ost mitesh teaching and coordination of supplies prior to discharge, with the support of BLAYNE Scherer, CM AA completed [employer] orders, forms awaiting MD review and signature on the chart. Martin will be driven home via private vehicle by family when ready. He will follow up with his PCP and discharge plan of care. CM will continue to follow.
--- NOTE | 2021-04-03 12:53 | PT.INTREAT ---
Date of service: 04/03/21 Time of Service: 07:54 PT Notes Visit Reasons: Acute on Chronic Diverticulitis,[place]-Vesical Fist Inpatient Physical Therapy Treatment Note [facility] Date: 04/03/2021 PRECAUTIONS: Activity as tolerated SUBJECTIVE: Martin reports that he is feeling much better today compared to yesterday. OBJECTIVE: PAIN: Patient c/o abdominal soreness with supine-sit transfer BED MOBILITY/TRANSFERS Supine-sit: Min A with HOB at 20 degrees Sit-supine: I with HOB flat Sit-stand: S Stand-sit: S GAIT Assistive Device: FWW Weight bearing: Full Assist: S Distance: 300' in a.m.; 650' in p.m. Deviation: Numbness of L LE, improving gait mechanics THEREX: Patient was instructed in a LE strengthening program, completed in a standing position, as per flow sheet. Patient requires occasional UE support to maintain balance. ASSESSMENT: Patient demonstrates gait mechanics, although continues to report L LE numbness. He was able to tolerate a progression in gait distance with FWW support and supervision. He would benefit from continued bed mobility training for improved ability with reduced pain. PLAN: Continue with global strengthening and bed mobility for improved mobility. TREATMENT CODE/TIME: Session 1: 23 minutes; 87685, 14405 (07:54) Session 2: 15 minutes; 66500 (15:15)
--- NOTE | 2021-04-03 13:05 | PHA.REVIEW ---
Pharmacy Admission Review - Admission Clinical Review (Last Reviewed 03/28/21 @ 15:48 by Christianne Vazquez DO) Hypoalbuminemia due to protein-calorie malnutrition (Acute) Diverticulitis, colon (Acute) Colovesical fistula (Acute) Borderline systolic HTN (Acute) Borderline hyperlipidemia (Acute) bee venom protein (honey bee) Allergy (Mild, Unverified 03/28/21 10:18) Cardiac Dysrhythmia Penicillins Allergy (Mild, Verified 03/27/21 11:06) Hives, nausea simvastatin Adverse Reaction (Intermediate, Verified 03/27/21 11:06) elevated liver enzymes atorvastatin Adverse Reaction (Mild, Verified 03/28/21 10:23) elevated liver enzymes Hymenoptera Adverse Reaction (Intermediate, Uncoded 03/28/21 10:23) heart racing, red face, headache Resuscitation Status Full Code Height 5 ft 11 in Weight 105.7 kg - Renal Dosing Renal Dosing: BUN 10 mg/dL (7-18) 04/03/21 06:35 Creatinine 0.7 mg/dL (0.70-1.30) 04/03/21 06:35 Medications needing adjustments: Reviewed (Crcl over 120 mL/min using adjusted body weight, current meds okay.) - Anticoagulation Anticoagulation: Hgb 11.8 g/dL (13.5-17.5) L 04/02/21 10:44 Hct 37.4 % (40.0-50.0) L 04/02/21 10:44 Plt Count 321 10^3/uL (130-400) 04/02/21 10:44 Creatinine 0.7 mg/dL (0.70-1.30) 04/03/21 06:35 DVT Prophylaxis: Reviewed Medications: Enoxaparin Therapeutic Anticoagulation: N/A - Opiate Usage Evaluate Pain Scale/Pains Meds: Reviewed Scheduled Bowel Reg ordered if on Opiates?: Yes (alvimopan) - Relevant Labs Sodium 140 mmol/L (136-145) 04/03/21 06:35 Potassium 3.1 mmol/L (3.5-5.1) L 04/03/21 06:35 Chloride 105 mmol/L (98-107) 04/03/21 06:35 Phosphorus 3.2 mg/dL (2.6-4.7) 04/03/21 06:35 Magnesium 2.1 mg/dL (1.8-2.4) 04/03/21 06:35 C-Reactive Protein 13.72 mg/dL (0.0-0.3) H 04/01/21 06:20 Electrolytes, C-Reactive P, ESR: Intervened (K+ low today, will mention to provider) - DM Control DM Control: Glucose 107 mg/dL (74-106) H D 04/03/21 06:35 Finger Stick Blood Glucose 117 Finger Stick Blood Glucose 117 Finger Stick Blood Glucose 117 Finger Stick Blood Glucose 104 Finger Stick Blood Glucose 104 Finger Stick Blood Glucose 112 Insulin Dosing: Reviewed (Sliding scale aspart ordered) - Heart Failure/CA EF%, LELAND's, B-Blockers, Diuretics: N/A - BP Control BP Control: Blood Pressure 151/97 Blood Pressure 120/81 Blood Pressure 149/90 Blood Pressure 146/89 Blood Pressure 155/95 Blood Pressure 134/83 If elevated: Intervened (BP has been mainly elevated yesterday and today. Not on anything at home, will mention to provider.) - Qtc Review If Elevated: N/A - IV to PO Switch IV Medications: Reviewed - Home Meds Home Med List reviewed: Reviewed Relevent Home Meds Not ordered & why?: augmentin, metronidazole, and neomycin (has other abx ordered); epipen (PRN) - Current meds Current Medication Order Review: Reviewed - Comments Comments/Follow Ups: Watch BP, BG, K+, labs and for med changes (IV to PO, insulin aspart time adjustment when pt is taking PO) Antibiotic Activity - Pharmacy Antibiotic Review Pharmacy Antibiotic Activity: Reviewed, no change (Zosyn continues (day 7) while admitted per provider.)
--- NOTE | 2021-04-03 13:42 | CHAPLAIN ---
Martin was resting in bed when I visited this morning. He was very pleasant and easily engaged in a conversation. He had surgery earlier this week that resulted in stoma, that maybe able to be reversed in three months. Martin has identified siblings and friends as strong supports for him. He may be discharged at the end of the week. Martin said he's had no trouble being in touch with family and friends and that he's feeling better today.
[2021-04-03] MEDS: Enoxaparin 40 MG/0.4 ML SYR SC (21:22)
[2021-04-03] MEDS: Normal Saline 500 ML 30 ML IV (23:49)
[2021-04-04] VITALS (7 sets, daily range): BP systolic 124–154; BP diastolic 83–95; PULSE 58–80; RESP 17–20; TEMP 35.8–36.9; O2SAT 95–100
[2021-04-04] MEDS: Normal Saline Flush 10 ML SYR IVP ×6 (04:50→23:24)
[2021-04-04] MEDS: FAMOTIDINE 20 MG/50 ML BAG 200 MG IVPB ×2 (06:26→17:43)
[2021-04-04] MEDS: PIPERACILLIN/TAZO 3.375 GM in Normal Saline 50 ML IVPB ×2 (06:27→12:25)
[2021-04-04 07:03] LABS: Abs Immature Grans 0.17 10^3/uL (0.0-0.06); Absolute Basophil Count 0.07 10^3/uL (0.0-0.2); Absolute Eosinophil Count 0.25 10^3/uL (0.0-0.7); Absolute Lymphocyte Count 1.89 10^3/uL (1.2-3.4); Absolute Monocyte Count 0.73 10^3/uL (0.1-0.8); Basophils % 0.6; Eosinophils % 2.3; HCT 33.9 % (40.0-50.0); HGB 10.7 g/dL (13.5-17.5); Immature Grans % 1.5; Lymphocytes % 17.2; MCH 27.1 pg (27.0-33.0); MCHC 31.6 % (32.0-36.0); MCV 85.8 fL (80-95); MPV 10.2 fL (8.0-11.0); Monocytes % 6.7; Neutrophils % 71.7; Nucleated RBC 0 %; Platelet Count 307 10^3/uL (130-400); RBC 3.95 10^6/uL (4.36-5.78); RDW 14.4 % (11.8-14.1); RDW-SD 45.1 fL; WBC 10.97 10^3/uL (4.4-10.8)
[2021-04-04 07:05] LABS: Absolute Neutrophil Count 7.87 10^3/uL (1.2-6.7)
[2021-04-04 07:12] LABS: Anion Gap 3.5 mmol/L (3-11); BUN 11 mg/dL (7-18); C-Reactive Protein 3.09 mg/dL (0.0-0.3); CO2 31.5 mmol/L (21.0-32.0); CREATININE 0.7 mg/dL (0.70-1.30); Calcium 7.8 mg/dL (8.5-10.1); Chloride 105 mmol/L (98-107); Glucose 107 mg/dL (74-106); PHOSPHORUS 4.3 mg/dL (2.6-4.7); Potassium 3.4 mmol/L (3.5-5.1); Sodium 140 mmol/L (136-145)
--- NOTE | 2021-04-04 09:16 | W.ANESEPD ---
Epidural/Spinal Daily Note Date Performed: 04/04/21 Assessment Time: 09:16 Patient Location: Med/Surg Catheter Type in Place: Epidural Catheter Dressing Assessment: Dressing intact with good adherence Catheter Assessment: Catheter Labeled Previous Catheter Depth Noted (cm): 13 Current Catheter Depth (cm): 13 Current Medication Infusion: Ropivacaine 0.1% with Fentanyl 2mcg/ml Current Maintenance Infusion Rate (ml/hour): 10 Current PCEA Bolus Dose (ml): 5 Current Pain Score (0-10): 3 Medication Infusion Stopped, Catheter Removal Planned: Yes Sensory / Motor Block Comments: Just finished working with PT, so pain has increased to 2-3 Otherwise pain well-controlled. New Bolus Given or Change in Infusion Made: No Daily Management Comments: VSS, up walking, pain well-controlled per patient, increased to 2-3 since working with PT. Discussed plan with patient, to stop infusion and convert to oral pain meds. Dr. Vazquez aware and agrees with plan and will order pain meds. Re-evaluate in a couple of hours and pull catheter if appropriate. Last lovenox dose 04/03/21 at 2200. Completed By: Courtney Donis
[2021-04-04] MEDS: Normal Saline 500 ML 30 ML IV ×2 (09:17→23:23)
[2021-04-04] MEDS: ACETAMINOPHEN 1,000 MG/100 ML BTL 400 MG IVPB (09:19)
[2021-04-04 09:22] LABS: Prothrombin Time 10.4 sec (9.3-11.0)
[2021-04-04] MEDS: Ketorolac 15 MG/ML VIAL IVP ×3 (10:32→20:50)
--- NOTE | 2021-04-04 11:04 | W.PM.PROGNOT ---
Date of Service Date of service: 04/04/21 Time of Service: 11:04 Assessment and Plan Assessment and plan (1) Colovesical fistula: Status: Acute Assessment and plan: POD#4 s/p exploratory laparotomy with sigmoid colectomy and takedown of colovesical fistula -Continue regular diet as tolerated with protein supplementation -Wean TPN to stop -AM labs reviewed, will continue to trend -Epidural DC'd today, transitioning to PO analgesics -Continue IV antibiotics, intraoperative cx negative, urine cx negative -Pathology resulted, no dysplasia or malignancy noted -Lovenox for DVT ppx -Pepcid for G I ppx -Continue to use incentive spirometer and encourage ambulation -Working with PT daily -Ostomy care/education -DC planning for Wednesday04/06/21 (2) Colonic diverticular abscess: Status: Acute (3) Diverticulitis: Status: Chronic (4) Hypoalbuminemia due to protein-calorie malnutrition: Status: Acute (5) Borderline systolic HTN: Status: Acute Subjective Subjective Patient reports: no new complaints, pain is less, tolerating a regular diet, bowel movement and afebrile; denies nausea and vomiting Exam Const General: cooperative, healthy appearing, comfortable and no acute distress Resp Effort & Inspection: normal respiratory effort, no audible wheezes, no cough and no respiratory distress Cardio Rate: regular rate Rhythm: regular rhythm GI Inspection: non-distended, incision (intact with caro) and other (drain in place, serosanguineous) Palpation: soft and tender (expected post op) Percussion: normal to percussion General: other (Sifuentes in place) Skin Lesions: no lesions Rashes: no rashes Wounds: wounds noted (midline surgical, intact, no erythema ) Neuro General: patient alert, patient awake and patient oriented x3 Objective Last Vital Signs Temp 98.4 F 04/04/21 06:51 Pulse 64 04/04/21 06:51 Resp 20 04/04/21 06:51 BP 132/87 04/04/21 06:51 Pulse Ox 98 04/04/21 06:51 Laboratory Results - last 24 hr 04/04/21 04/04/21 04/04/21 06:22 06:22 08:55 WBC 10.97 H RBC 3.95 L Hgb 10.7 L Hct 33.9 L MCV 85.8 MCH 27.1 MCHC 31.6 L RDW 14.4 H Plt Count 307 MPV 10.2 Immature Gran % 1.5 Neutrophils % 71.7 Lymphocytes % 17.2 Monocytes % 6.7 Eosinophils % 2.3 Basophils % 0.6 Nucleated RBC % 0 Absolute Neutrophils 7.87 H Absolute Lymphocytes 1.89 Absolute Monocytes 0.73 Absolute Eosinophils 0.25 Absolute Basophils 0.07 PT INR Sodium 140 Cancelled Potassium 3.4 L Cancelled Chloride 105 Cancelled Carbon Dioxide 31.5 Cancelled Anion Gap 3.5 Cancelled BUN 11 Cancelled Creatinine 0.7 Cancelled Estimated GFR/1.73 m2 >= 60.00 Cancelled Glucose 107 H Cancelled Calcium 7.8 L Cancelled Phosphorus 4.3 Magnesium 2.0 Total Bilirubin Cancelled AST Cancelled ALT Cancelled Alkaline Phosphatase Cancelled C-Reactive Protein 3.09 H Total Protein Cancelled Albumin Cancelled 04/04/21 08:55 WBC RBC Hgb Hct MCV MCH MCHC RDW Plt Count MPV Immature Gran % Neutrophils % Lymphocytes % Monocytes % Eosinophils % Basophils % Nucleated RBC % Absolute Neutrophils Absolute Lymphocytes Absolute Monocytes Absolute Eosinophils Absolute Basophils PT 10.4 INR 1.0 Sodium Potassium Chloride Carbon Dioxide Anion Gap BUN Creatinine Estimated GFR/1.73 m2 Glucose Calcium Phosphorus Magnesium Total Bilirubin AST ALT Alkaline Phosphatase C-Reactive Protein Total Protein Albumin
[2021-04-04 11:09] LABS: ALT 28 U/L (16-63); AST 25 U/L (15-37); Alkaline Phosphatase 51 U/L (46-116); Anion Gap 1.9 mmol/L (3-11); BUN 13 mg/dL (7-18); Bilirubin, Total 0.3 mg/dL (0.2-1.0); CO2 33.1 mmol/L (21.0-32.0); CREATININE 0.7 mg/dL (0.70-1.30); Calcium 8.1 mg/dL (8.5-10.1); Chloride 103 mmol/L (98-107); Glucose 111 mg/dL (74-106); Potassium 3.7 mmol/L (3.5-5.1); Sodium 138 mmol/L (136-145); Total Protein 5.8 g/dL (6.4-8.2)
--- NOTE | 2021-04-04 11:46 | PDOC.CMPRO ---
- If Service Date Differs Date of service: 04/04/21 Time of Service: 17:08 Care Management Progress Note S/O: Martin remains pleasant in interaction and continues ostomy teaching with nursing. He was trimming the ostomy bag with his twin sister, Melani watching when CM met with him. Per Dr. Vazquez, anticipated discharge, Wednesday04/06/21-[facility] notified today, [facility] referral faxed today as well. CM continues to follow. A: Martin is a 50 year old male admitted to [facility] on 03/28/21 with diverticulitis, colo vesical fistula. P: Anticipate Martin will return home when medically cleared. He will require ostomy teaching and coordination of supplies prior to discharge, with the support of BLAYNE Scherer, CM AA completed [facility] orders, and submitted today. Martin will be driven home via private vehicle by family when ready. He will follow up with his PCP and discharge plan of care. CM will continue to follow.
--- NOTE | 2021-04-04 12:22 | PT.INTREAT ---
Date of service: 04/04/21 Time of Service: 07:37 PT Notes Visit Reasons: Acute on Chronic Diverticulitis,[place] Inpatient Physical Therapy Treatment Note [facility] Date: 04/04/2021 PRECAUTIONS: Activity as tolerated SUBJECTIVE: Martin reports that he continues to feel better, although has soreness in lower right abdomen with movement. He states that he has not had much of an appetite, but is tolerating solids well. OBJECTIVE: PAIN: Patient c/o abdominal soreness with transfers BED MOBILITY/TRANSFERS Supine-sit: S with HOB flat Sit-stand: I Stand-sit: I Bed-chair: I Chair-bed: I GAIT Assistive Device: FWW Weight bearing: Full Assist: I Distance: 650' in a.m.; in p.m. Deviation: Numbness of L LE, improving gait mechanics, requires supervision only due to L LE numbness THEREX: Patient was instructed in a LE strengthening program, completed in a standing position, as per flow sheet. Patient requires occasional UE support to maintain balance. ASSESSMENT: Patient continues to demonstrate improved gait mechanics, although continues to report L LE numbness. He was able to tolerate a progression in gait distance with FWW support and supervision. He would benefit from continued bed mobility training for improved ability with reduced pain. PLAN: Continue with global strengthening and bed mobility for improved mobility. TREATMENT CODE/TIME: 26 minutes; [id number], [id number] (07:37)
--- NOTE | 2021-04-04 13:55 | W.ANESNEU ---
Epidural/Spinal Cath. Removal Date Performed: 04/04/21 Procedure Time: 12:41 Catheter Removal Type: Epidural Catheter Procedure Location: Med/Surg Patient Position: Sitting Catheter Removal Procedure: Dressing Removed, Catheter Removed without Resistance, Catheter Tip Intact and Dressing Applied Paresthesia: None Procedure Tolerated: No Complications Procedure Outcome: Successful Procedure Comment:: Pain level 1 1/2 out of 10 per patient. Performed By: Courtney Donis
--- NOTE | 2021-04-04 15:04 | W.NUTRFU ---
Date of service: 04/04/21 Time of Service: 15:04 Nutritional Follow up NOTE: Patient?s po intake slightly improved and appears to be meeting at least 50% of his needs as observed by meal intake. With anticipated d/c this Wednesday per CM note, would suggest discontinue TPN nutrition at this time and advance diet as tolerated with softer foods. Time Spent in Nutritional Counseling and Treatment: 0
[2021-04-04] MEDS: Acetaminophen 500 MG TAB 1000 MG PO ×2 (15:59→23:21)
[2021-04-04] MEDS: traMADol 50 MG TAB PO (23:20)
[2021-04-05] MEDS: Enoxaparin 40 MG/0.4 ML SYR SC ×2 (00:18→23:19)
[2021-04-05] MEDS: Ketorolac 15 MG/ML VIAL IVP ×4 (04:05→23:16)
[2021-04-05] MEDS: Normal Saline Flush 10 ML SYR IVP ×3 (04:07→23:17)
[2021-04-05] MEDS: FAMOTIDINE 20 MG/50 ML BAG 200 MG IVPB ×2 (06:02→17:23)
[2021-04-05] MEDS: Normal Saline 500 ML 30 ML IV (06:03)
[2021-04-05 07:11] LABS: Anion Gap 5.8 mmol/L (3-11); BUN 11 mg/dL (7-18); C-Reactive Protein 3.41 mg/dL (0.0-0.3); CO2 31.2 mmol/L (21.0-32.0); CREATININE 0.7 mg/dL (0.70-1.30); Calcium 8.1 mg/dL (8.5-10.1); Chloride 104 mmol/L (98-107); Glucose 101 mg/dL (74-106); PHOSPHORUS 4.5 mg/dL (2.6-4.7); Potassium 3.5 mmol/L (3.5-5.1); Sodium 141 mmol/L (136-145)
[2021-04-05 07:14] VITALS: BP 144/85; PULSE 64; RESP 16; TEMP 36.2; O2SAT 99
[2021-04-05] MEDS: Acetaminophen 500 MG TAB 1000 MG PO ×3 (08:23→23:18)
--- NOTE | 2021-04-05 10:26 | W.PM.PROGNOT ---
Date of Service Date of service: 04/05/21 Time of Service: 10:26 Assessment and Plan Assessment and plan (1) Colovesical fistula: Status: Acute Assessment and plan: POD#5 s/p exploratory laparotomy and takedown of colovesical fistula with sigmoid colectomy and diverting ostomy -Regular diet as tolerated with protein supplementation -AM labs reviewed, slight increase in WBC, afebrile, will continue to trend -Gutierrez x10 days post op -Continue IV abx while inpatient, intraop cx negative -Pathology without dysplasia or makignancy -Lovenox for DVT ppx -Pepcid for GI ppx -Ostomy education/care -Encourage ambulation and incentive spirometer use Planning to DC home tomorrow (2) Colonic diverticular abscess: Status: Acute (3) Hypoalbuminemia due to protein-calorie malnutrition: Status: Acute (4) Borderline systolic HTN: Status: Acute Subjective Subjective Patient reports: no new complaints, feels better, pain is less, tolerating a regular diet, bowel movement and afebrile; denies nausea and vomiting Exam Const General: cooperative, healthy appearing, comfortable and no acute distress Resp Effort & Inspection: normal respiratory effort, no audible wheezes, no cough and no respiratory distress Cardio Rate: regular rate Rhythm: regular rhythm GI Inspection: incision (intact with caro) and other (retention suture x1 in place) Palpation: soft and tender (mild, appropriate post op) Percussion: normal to percussion General: other (gutierrez in place) Neuro General: patient alert, patient awake and patient oriented x3 Objective Last Vital Signs Temp 97.2 F L 04/05/21 07:14 Pulse 64 04/05/21 07:14 Resp 16 04/05/21 07:14 BP 144/85 H 04/05/21 07:14 Pulse Ox 99 04/05/21 07:14 Laboratory Results - last 24 hr 04/04/21 04/05/21 10:45 06:15 Sodium 138 141 Potassium 3.7 3.5 Chloride 103 104 Carbon Dioxide 33.1 H 31.2 Anion Gap 1.9 L 5.8 BUN 13 11 Creatinine 0.7 0.7 Estimated GFR/1.73 m2 >= 60.00 >= 60.00 Glucose 111 H 101 Calcium 8.1 L 8.1 L Phosphorus 4.5 Magnesium 2.0 Total Bilirubin 0.3 AST 25 ALT 28 Alkaline Phosphatase 51 C-Reactive Protein 3.41 H Total Protein 5.8 L Albumin 2.0 L
[2021-04-05 11:18] LABS: Abs Immature Grans 0.13 10^3/uL (0.0-0.06); Absolute Basophil Count 0.06 10^3/uL (0.0-0.2); Absolute Eosinophil Count 0.19 10^3/uL (0.0-0.7); Absolute Lymphocyte Count 1.83 10^3/uL (1.2-3.4); Absolute Monocyte Count 0.84 10^3/uL (0.1-0.8); Absolute Neutrophil Count 9.31 10^3/uL (1.2-6.7); Basophils % 0.5; Eosinophils % 1.5; HCT 34.3 % (40.0-50.0); HGB 10.9 g/dL (13.5-17.5); Immature Grans % 1.1; Lymphocytes % 14.8; MCH 27.5 pg (27.0-33.0); MCHC 31.8 % (32.0-36.0); MCV 86.4 fL (80-95); MPV 10.4 fL (8.0-11.0); Monocytes % 6.8; Neutrophils % 75.3; Nucleated RBC 0 %; Platelet Count 330 10^3/uL (130-400); RBC 3.97 10^6/uL (4.36-5.78); RDW 14.4 % (11.8-14.1); RDW-SD 45.2 fL; WBC 12.37 10^3/uL (4.4-10.8)
--- NOTE | 2021-04-05 12:31 | PTTR_ITS ---
PT Notes Visit Reasons: Acute on Chronic Diverticulitis,[place] Inpatient Physical Therapy Treatment Note [facility] Date: 04/05/21 SUBJECTIVE: Martin states that he thinks he may be going home at some point tomorrow. He is feeling better, but continues to experience abdominal pain, as well as left leg numbness. He states that he is unsure if the numbness is beginning to subside or if he is just getting used to it. OBJECTIVE: [] BED MOBILITY/TRANSFERS Supine-sit: I Sit-supine: I Sit-stand: I Stand-sit: I Bed-Chair: I Chair-bed: I GAIT Assistive Device:no assistive device Weight bearing: full Assist: SBA Distance: approx 550' THEREX: performed a global LE strength and stabilization program while standing. See flowsheet for details. STAIRS: ascend and descend clinic steps (4 and 6 steps) with bilateral rails and S using step over gait pattern. ASSESSMENT: tolerated session well. No LOB or deviations ambulating without assistive device. PLAN: Possible d/c home tomorrow. Will continue to work on his strength, endurance and functional mobility to tolerance following PT POC. TREATMENT CODE/TIME: 25 min beginning at 11:35. [id number], [id number].
[2021-04-05 16:16] VITALS: BP 148/96
[2021-04-05 17:29] VITALS: BP 146/90
--- NOTE | 2021-04-05 19:30 | NUR.NOTE ---
Patient s blood pressure was checked again at 1730. It was 146/90, and his pain had decreased to a 2. Next shift to be made aware. Nursing Note:
[2021-04-05] MEDS: traMADol 50 MG TAB PO (23:18)
[2021-04-05 23:24] VITALS: BP 160/98; PULSE 68; RESP 14; TEMP 36.8; O2SAT 99
[2021-04-06] MEDS: Ketorolac 15 MG/ML VIAL IVP ×2 (05:23→10:12)
[2021-04-06] MEDS: Normal Saline Flush 10 ML SYR IVP ×3 (05:24→10:13)
[2021-04-06] MEDS: FAMOTIDINE 20 MG/50 ML BAG 200 MG IVPB (05:25)
[2021-04-06] MEDS: Normal Saline 500 ML 30 ML IV (05:26)
[2021-04-06 05:34] VITALS: TEMP 36
[2021-04-06 06:52] LABS: Abs Immature Grans 0.11 10^3/uL (0.0-0.06); Absolute Basophil Count 0.05 10^3/uL (0.0-0.2); Absolute Eosinophil Count 0.25 10^3/uL (0.0-0.7); Absolute Lymphocyte Count 1.86 10^3/uL (1.2-3.4); Basophils % 0.4; Eosinophils % 2.1; HGB 11.2 g/dL (13.5-17.5); Immature Grans % 0.9; Lymphocytes % 15.5; MCH 27.4 pg (27.0-33.0); MCV 85.6 fL (80-95); MPV 10.2 fL (8.0-11.0); Monocytes % 6.2; Neutrophils % 74.9; Nucleated RBC 0 %; Platelet Count 302 10^3/uL (130-400); RBC 4.09 10^6/uL (4.36-5.78); RDW 14.4 % (11.8-14.1); RDW-SD 44.1 fL; WBC 12.03 10^3/uL (4.4-10.8)
[2021-04-06 07:04] LABS: ALT 62 U/L (16-63); AST 27 U/L (15-37); Albumin 2.3 g/dL (3.4-5.0); Alkaline Phosphatase 59 U/L (46-116); BUN 10 mg/dL (7-18); Bilirubin, Total 0.3 mg/dL (0.2-1.0); C-Reactive Protein 4.49 mg/dL (0.0-0.3); CREATININE 0.7 mg/dL (0.70-1.30); Calcium 8.4 mg/dL (8.5-10.1); Chloride 104 mmol/L (98-107); Glucose 93 mg/dL (74-106); Magnesium 2.1 mg/dL (1.8-2.4); Potassium 3.6 mmol/L (3.5-5.1); Sodium 141 mmol/L (136-145); Total Protein 6.3 g/dL (6.4-8.2)
[2021-04-06 07:11] LABS: Absolute Monocyte Count 0.75 10^3/uL (0.1-0.8); Absolute Neutrophil Count 9.01 10^3/uL (1.2-6.7)
[2021-04-06 07:31] VITALS: BP 138/88; PULSE 65; RESP 20; TEMP 36.7; O2SAT 99
[2021-04-06] MEDS: Acetaminophen 500 MG TAB 1000 MG PO (08:47)
--- NOTE | 2021-04-06 10:48 | PDOC.HHF2F ---
Home Health Certification Home Health Certification: 1. Encounter Date and Reason I certify that Martin Santiago was seen by Jasmine Santos DO on 04/06/21 and that I had a [id number] encounter with this patient that meets the physician face to face encounter requirements. 2. Clinical Findings Supporting Skilled Need and Homebound Status I certify that home health services are medically necessary, include either intermittent intermediate and/or physical/speech therapy, and that this patient is homebound in that absences from the home require considerable and taxing effort and are infrequent or of short duration, or are attributable to the need to receive medical care. [X] (a) Attached documentation from encounter provides clinical findings supporting skilled need and homebound status (including what assistance patient requires to leave the home). The encounter with the patient was in whole, or in part, for the following medical condition, which is the primary reason for home health care: Acute on Chronic Diverticulitis,[place] Long Term: New ostomy, assistance with ostomy care Physical Therapy: Speech Therapy: Homebound: 3. Certification and Authentication I certify that I composed the above information based on my clinical judgement relating to this patient's medical condition and, if applicable, clinical findings communicated to me by the NPP or inpatient physician who performed the Home Health Referral. All further orders will be obtained through (Community Based Physician - PCP)
--- NOTE | 2021-04-06 10:51 | DSE_ITS ---
Date of service: 04/06/21 Time of Service: 10:51 DS: Diagnosis Discharge Diagnosis (1) Colovesical fistula: Status: Acute Asessment and Plan: POD#6 s/p exploratory laparotomy for takedown of colovesical fistula and diverting ostomy -Maintain Gutierrez x10 days total -Call to make apt this with Dr. Vazquez -No lifting >5-10lbs for 6 weeks -High protein diet -Ostomy care -Incentive spirometer use and ambulation encouraged -PRN analgesia with Tylenol, Motrin or Tramadol (2) Colonic diverticular abscess: Status: Acute (3) Hypoalbuminemia due to protein-calorie malnutrition: Status: Acute (4) Borderline systolic HTN: Status: Acute Discharge Plan Disposition Patient Disposition: HOME Condition: Stable Discharge Details Reason For Visit: Acute on Chronic Diverticulitis,[place] Admit Date/Time: 03/28/21 13:53 Admit Provider: Christianne Vazquez Attending Provider: Christianne Vazquez Primary Care Provider: Harjinder Dangelo Hospital Course Hospital Course: Patient was admitted to the hospital after failing outpatient management of smoldering diverticulitis with development of colovesical fistula. He was taken to the operating room and underwent takedown of fistula, bladder exploration, sigmoidectomy with diverting ostomy. He recovered uneventfully and on POD#6 he was deemed stable to be discharged home. Retention sutures and drain were removed, he will maintain the Gutierrez until POD#10. Mercedes may be removed in the office. Home Meds and New Rx's Prescriptions: New tramadol 50 mg Tablet 50 mg PO Q6H PRN (Reason: pain) Qty: 30 RF: 0 Continued epinephrine [EpiPen 2-Jose Ramon] 0.3 mg/0.3 mL auto-injector 0.3 mg IM Q5-15M PRNRF: 0 ondansetron HCl [Zofran] 4 mg tablet 8 mg PO Q8H PRN Qty: 3 RF: [address] (L. sporog) 35 million- 25 million cell tablet 1 tab PO DAILY Qty: 90 RF: 0 Discontinued amoxicillin-pot clavulanate [Augmentin] 875-125 mg tablet 1 tab PO BID 10 Days Qty: 20 RF: 0 neomycin 500 mg tablet 500 mg PO DIRECTED Qty: 8 RF: 0 metronidazole [Flagyl] 500 mg tablet 500 mg PO DIRECTED Qty: 8 RF: 0 Discharge Instructions Instructions: Colostomy Care (DC) Additional Instructions: Avoid lifting >5-10 lbs for 6 weeks, maintain gutierrez catheter for 10 day total, this can be removed in the office. Mercedes will also remain in place. OK to shower,do not take baths or submerge incision until skin is fully healed. Stand Alone Forms: DSU Gutierrez Care Instructiions Referrals: Christianne Vazquez DO [OSTEOPATHIC DOCTOR] - 04/10/21 (call to make appointment) Activity:: as above, <10lbs Equipment/Supplies:: No Equipment Needed Diet:: high protein Discharge Orders Discharge Orders: Discharge Order (Routine); Ordered 04/06/21 Ordered By: Jasmine Santos DS: Summary Time Spent with Patient providing and/or coordinating discharge services: Less than 30 minutes Status at Discharge Functional status at discharge: independent ambulation Overall status at discharge: patient is progressing back to baseline Mental Status: mental status grossly normal Speech and Movement: speech and movement normal Mood: congruent mood Affect: normal affect Exam Const General: cooperative, healthy appearing, comfortable and no acute distress Resp Effort & Inspection: normal respiratory effort, no audible wheezes, no cough and no respiratory distress Cardio Rate: regular rate Rhythm: regular rhythm GI Inspection: non-distended and incision (intact with mercedes) Palpation: soft and tender (expected post op) Percussion: normal to percussion General: other (gutierrez in place) Neuro General: patient alert, patient awake and patient oriented x3 Psych Mental Status: mental status grossly normal Speech and Movement: speech and movement normal Mood: congruent mood Affect: normal affect DS: Data Vitals/I&O Vitals and I&O: Vital Signs Temperature 98.1 F 04/06/21 07:31 Temperature Source Tympanic 04/06/21 07:31 Pulse 65 04/06/21 07:31 Pulse Rhythm Regular 04/05/21 23:47 Pulse 73 04/01/21 18:01 Respiratory Rate 20 04/06/21 07:31 Respiratory Effort 04/06/21 05:05 Respiratory Depth Normal 04/06/21 05:05 Respiratory Pattern Normal 04/06/21 05:05 Blood Pressure 138/88 04/06/21 07:31 Blood Pressure Mean 90 04/01/21 18:00 Blood Pressure Position Supine 04/01/21 03:15 Pulse Oximetry 99 04/06/21 07:31 Respiratory End-tidal CO2 36 03/31/21 13:15 Oxygen Delivery Method Room Air 04/06/21 07:31 Oxygen Flow Rate 0 04/06/21 07:31 Pain Level 1 04/06/21 08:47 Comment 04/05/21 16:16 Intake & Output 04/05/21 04/05/21 04/06/21 11:59 23:59 11:59 Intake Total 616.042 / 1581.042 965 / 1581.042 Output Total 1850 / 3750 1900 / 3750 1375 / 1375 Balance -1233.958 / -2168.958 -935 / -2168.958 -1375 / -1375 Weight 134 lb 9.6 oz Intake: IV 616.042 / 1316.042 700 / 1316.042 Oral 265 / 265 Output: Urine 1850 / 3650 1800 / 3650 1200 / 1200 Stool 100 / 100 175 / 175 Other: Urine Color Yellow Yellow Yellow Urine Appearance Cloudy Cloudy Clear Comment Intact and draining, does not need to be emptied yet Data Completed and Pending Labs on day of discharge: Labs from last 24 hours 04/06/21 04/06/21 04/05/21 06:15 06:15 06:15 WBC 12.03 H 12.37 H RBC 4.09 L 3.97 L Hgb 11.2 L 10.9 L Hct 35.0 L 34.3 L MCV 85.6 86.4 MCH 27.4 27.5 MCHC 32.0 31.8 L RDW 14.4 H 14.4 H Plt Count 302 330 MPV 10.2 10.4 Immature Gran % 0.9 1.1 Neutrophils % 74.9 75.3 Lymphocytes % 15.5 14.8 Monocytes % 6.2 6.8 Eosinophils % 2.1 1.5 Basophils % 0.4 0.5 Nucleated RBC % 0 0 Absolute Neutrophils 9.01 H 9.31 H Absolute Lymphocytes 1.86 1.83 Absolute Monocytes 0.75 0.84 H Absolute Eosinophils 0.25 0.19 Absolute Basophils 0.05 0.06 Sodium 141 Potassium 3.6 Chloride 104 Carbon Dioxide 30.0 Anion Gap 7.0 BUN 10 Creatinine 0.7 Estimated GFR/1.73 m2 >= 60.00 Glucose 93 Calcium 8.4 L Magnesium 2.1 Total Bilirubin 0.3 AST 27 ALT 62 Alkaline Phosphatase 59 C-Reactive Protein 4.49 H Total Protein 6.3 L Albumin 2.3 L Preliminary micro results at discharge 03/31/21 09:15 Surgical Culture - Preliminary Abdomen 03/31/21 09:15 Anaerobic Culture - Preliminary Abdomen PFSH Medical History (Updated 03/31/21 @ 07:58 by Christianne Vazquez DO) Depression Diverticulitis High cholesterol Hypertension UTI (urinary tract infection) Social History Smoking/Tobacco Use Status: Former Tobacco Use Smoking risk assessment performed?: Yes Alcohol Intake: former Drug use: Never Substance use type: does not use Do you feel safe at home: Yes Do you feel safe in your relationship?: Yes
--- NOTE | 2021-04-06 12:40 | PT.INTREAT ---
PT Notes Visit Reasons: Acute on Chronic Diverticulitis,[place] Inpatient Physical Therapy Treatment Note [facility] Date: 04/06/21 SUBJECTIVE: Martin states that he thinks he is gong home today. He feels ready. He states that the numbness in left leg is subsiding. OBJECTIVE: [] BED MOBILITY/TRANSFERS Supine-sit: I Sit-stand:I Stand-sit: I Bed-Chair: I Chair-bed: I GAIT Assistive Device: no AD Weight bearing: full Assist:SBA Distance: 550' THEREX: global LE strength and stabilization while standing. See flowsheet for details STAIRS:clinic steps 4 and 6 steps x 2 using bilateral rails and step over gait pattern. SBA ASSESSMENT: tolerated session well. Has good strength and is independent with functional mobility. PLAN: possible d/c to home this afternoon. TREATMENT CODE/TIME: 25 min beginning at 0940 [id number], [id number]
[2021-04-06] MEDS: Bacitracin 1 PACKET TP (13:16)
--- NOTE | 2021-04-06 14:40 | CMDISCH_ITS ---
- If Service Date Differs Date of service: 04/06/21 Time of Service: 14:40 LACE Index Scoring Tool - Questions: Length of Stay (in days): 7 - 13 Acuity (Admit via E.D.?): Yes E.D. Visits: 1 - Answers: Total Score: 9 Risk of Readmission: Low Risk Care Management Discharge Reason for Hospitalization: Acute on chronic diverticulitis, [place]-vesical fistula, buddy-colonic inflammation Discharge Plan: Martin returned home today with new orders for HH RN for his new ostomy. CM informed [facility] of his discharge today. He was driven home via private vehicle by a friend. He will follow up with his PCP and discharge plan of care. Patient/Family Education Needs: Review discharge instructions regarding new ostomy and medications, discussion of self care needs including ask me three. Services Needed at Discharge: Home Health Care Services (HH RN)
--- NOTE | 2021-04-09 09:21 | INDS_ITS ---
Date of service: 04/09/21 PT Notes Visit Reasons: Acute on Chronic Diverticulitis,[facility] Inpatient Discharge Summary Date: Apr 09, 2021 Dates of Services: 04/01/2021 through This is a clinical summary of care provided for the duration of dates listed above. No charge was made in the completion of this documentation. Referring Doctor: Christianne Vazquez MD PT Orders: PT CONSULT: Eval/Treat Beverley is a 50-year-old male who presented to the ED on Mar 28, 2021 Precautions: Fall. Standard. Activity as tolerated. Patient Profile/Admitting Diagnosis: Martin is a 50-year-old male who presented to the ED on Mar 28, 2021 due to worsening abdominal pain. Patient is diagnosed with colovesicular fistula and subacute/chronic diverticulitis and is status post exploratory laparotomy, diverting colostomy placement, and proctoscopy on postoperative day 1. PMHX: Medical History Depression Diverticulitis High cholesterol Hypertension UTI (urinary tract infection) Surgical History History of coronary artery stent placement Social History/Home Situation: Lives alone in a private home with 3 steps to enter with rails on both sides. There is a flight to the 2nd floor of the house where his bathroom is a rail on the right side. 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 Independent with all aspects of ADLs prior to surgery. Has 2 dogs. Equipment Owned/DME: None Subjective: NT. See most recent LEASING ASSISTANT notes. Objective: General Observation: NT. See most recent LEASING ASSISTANT notes. Mental Status: NT. See most recent LEASING ASSISTANT notes. Pain: NT. See most recent LEASING ASSISTANT notes. ROM: Right Upper Extremity: Shoulder Flexion WFL. Shoulder abduction WFL. Elbow flexion WFL. Wrist flexion WFL. Functional opening and closing of hand WFL. Left Upper Extremity: Shoulder Flexion WFL. Shoulder abduction WFL. Elbow flexion WFL. Wrist flexion WFL. Functional opening and closing of hand WFL. Right Lower Extremity: Hip flexion WFL. Hip abduction WFL. Knee flexion WFL. Ankle dorsiflexion WFL. Ankle plantarflexion WFL. Left Lower Extremity: Hip flexion lacks the last 25 % of hip flexion in supine due to discomfort and feeling of heaviness. Hip abduction WFL. Knee flexion WFL. Knee extension WFL ankle dorsiflexion WFL. Ankle plantarflexion WFL. Strength: Right Upper Extremity: Shoulder flexors 5/5. Shoulder abductors 5/5. Elbow flexors 5/5. Elbow extensors 5/5. Fish Straightener strong. Left Upper Extremity: Shoulder flexors 5/5. Shoulder abductors 5/5. Elbow flexors 5/5. Elbow extensors 5/5. Fish Straightener strong. Right Lower Extremity: Hip flexors 5/5. Hip abductors 5/5. Knee flexors 5/5. Knee extensors 5/5. Ankle dorsiflexors 5/5. Ankle plantarflexors 5/5. Left Lower Extremity: Hip flexors 3-/5. Hip abductors 4-/5. Knee flexors 4/5. Knee extensors 3+/5. Ankle dorsiflexors 5/5. Ankle plantarflexors 5/5. Bed Mobility/Transfers: Supine to sit independent Sit to stand independent Stand to sit independent NT. See most recent LEASING ASSISTANT notes. Bed to chair independent Gait: Instructed patient with level surface ambulation of 550 feet requiring standby assist, no AD. Mony decreased due to numerous lines/attachments. Left quad impaired/delayed activation with a left knee partial knee giving way x 2 but without LOB. Step-to gait pattern due to mild instability on the left knee. Balance: Static Sitting: Normal Dynamic Sitting: Normal Static Standing: Fair Dynamic Standing: Fair Assessment: Patient presents functional mobility improvement during this episode of care as can be seen in the goal status below. Goals: Goals X1 week 1. Supine-Sit independent MET 2. Sit-Supine independent MET 3. Sit-Stand independent MET 4. Stand-Sit independent with no AD MET 5. Bed-Chair independent with no AD MET 6. Chair-Bed independent with no AD MET 7. Independent gait on level surface with use of no AD for at least 300 feet without report of pain nor dyspnea NOT MET 8. Independent stair negotiation while holding onto B rails for at least 5 steps without report of pain nor dyspnea NOT MET 9. Independent with home exercise program NOT MET 10. Good static and dynamic standing balance/tolerance NOT MET DISCHARGE RECOMMENDATIONS: Outpatient PT services if left LE weakness and impaired L quad activation persists. May benefit from the use of front wheeled walker versus single-point cane upon discharge. TREATMENT CODE/TIME: NC Thank you for the opportunity to participate in the care of this patient. Leydi Feliciano PT, DPT, CLT [facility] [place], [place]
== END 2021-04-06 13:35 | disposition home or self-care (01) | DRG 981 ==
LOC: ER 14:51 → MS 16:08 → ICU 03-31 14:06 → MS 04-01 19:30
PROVIDERS: Physical Therapy Assistant; Surgery; Urology; Admitting Provider Surgery; Emergency Provider Physician Assistant; PCP Family Medicine; Visit Provider Surgery
PROC: 0DQH0ZZ Repair Cecum, Open Approach (ICD-10-PCS; CPT 49000; principal; 2021-03-31 07:30)
PROC: 0T9880Z Drainage of Bilateral Ureters with Drainage Device, Via Natural or Artificial Opening Endoscopic (ICD-10-PCS; CPT 52332; 2021-03-31 07:30)
DX: N32.1 Vesicointestinal fistula (principal); K63.1 Perforation of intestine (nontraumatic); K57.20 Diverticulitis of large intestine with perforation and abscess without bleeding; E46 Unspecified protein-calorie malnutrition; Z68.1 Body mass index [BMI] 19.9 or less, adult; I10 Essential (primary) hypertension; F32.A Depression, unspecified; E78.00 Pure hypercholesterolemia, unspecified; Z95.5 Presence of coronary angioplasty implant and graft; Z87.891 Personal history of nicotine dependence; Z20.822 Contact with and (suspected) exposure to COVID-19; E78.5 Hyperlipidemia, unspecified
CPT/HCPCS: 52000; 44143; 44604; 45330; 36415; 36569; 36592; 80048; 80053; 85027; 86850; 86900; 86901; 87635; 96361; 96365; 97110; 97162; 97530; 99285; J1650; 74177; 81003; 83540; 83550; 83735; 84100; 85025; 85610; 86140; 87070; 87075; 87205; 88307; 94667; J0131; J1100; J1756; J1885; J2001; J2250; J2270; J2405; J2543; J2765; J3490

== ENCOUNTER 2021-04-24 13:26 | Outpatient (REF) | payer BC, SELFPAY | END 2021-04-24 13:27 | disposition home or self-care (01) | LOC: NCHCN 13:26 | PROVIDERS: PCP Family Medicine; Visit Provider Family Medicine | DX: N39.0 Urinary tract infection, site not specified (principal) | CPT/HCPCS: 87086 ==

== ENCOUNTER 2021-04-28 03:55 | Outpatient (CLI) | payer BC, SELFPAY ==
[2021-04-28 08:41] LABS: Abs Immature Grans 0.09 10^3/uL (0.0-0.06); Absolute Basophil Count 0.07 10^3/uL (0.0-0.2); Absolute Eosinophil Count 0.19 10^3/uL (0.0-0.7); Absolute Lymphocyte Count 3.09 10^3/uL (1.2-3.4); Absolute Neutrophil Count 6.34 10^3/uL (1.2-6.7); Basophils % 0.7; Eosinophils % 1.8; HGB 13.1 g/dL (13.5-17.5); Immature Grans % 0.9; Lymphocytes % 29.5; MCH 25.8 pg (27.0-33.0); MCHC 31.2 % (32.0-36.0); MCV 82.8 fL (80-95); MPV 9.7 fL (8.0-11.0); Monocytes % 6.7; Neutrophils % 60.4; Nucleated RBC 0 %; Platelet Count 429 10^3/uL (130-400); RBC 5.07 10^6/uL (4.36-5.78); RDW 13.8 % (11.8-14.1); RDW-SD 41.4 fL; WBC 10.48 10^3/uL (4.4-10.8)
[2021-04-28 09:38] LABS: Iron 49 ug/dL (65-175); Total Iron Binding Capacity 235 ug/dL (250-450); Transferrin Sat 21 % (20-55)
[2021-04-28 09:51] LABS: ALT 65 U/L (16-63); AST 16 U/L (15-37); Albumin 3.7 g/dL (3.4-5.0); Alkaline Phosphatase 87 U/L (46-116); Anion Gap 9.1 mmol/L (3-11); BUN 19 mg/dL (7-18); Bilirubin, Total 0.4 mg/dL (0.2-1.0); CO2 30.9 mmol/L (21.0-32.0); Calcium 9.5 mg/dL (8.5-10.1); Chloride 100 mmol/L (98-107); Ferritin 326 ng/mL (26-388); Glucose 89 mg/dL (74-106); Potassium 4.6 mmol/L (3.5-5.1); Sodium 140 mmol/L (136-145); TSH (W/Ref FT4) 0.84 uIU/mL (0.36-3.74); Total Protein 8.3 g/dL (6.4-8.2)
[2021-04-28 09:57] LABS: C-Reactive Protein 1.53 mg/dL (0.0-0.3)
== END 2021-04-28 03:56 | disposition home or self-care (01) ==
LOC: LBO 03:55
PROVIDERS: PCP Family Medicine; Visit Provider Surgery
DX: E78.5 Hyperlipidemia, unspecified (principal); E46 Unspecified protein-calorie malnutrition; E88.09 Other disorders of plasma-protein metabolism, not elsewhere classified; N32.1 Vesicointestinal fistula; R03.0 Elevated blood-pressure reading, without diagnosis of hypertension
CPT/HCPCS: 36415; 80053; 86850; 86900; 86901; 82728; 83540; 83550; 84443; 85025; 86140

== ENCOUNTER 2021-05-20 01:46 | Outpatient (CLI) | payer BC, SELFPAY ==
--- NOTE | 2021-05-20 08:00 | DI.CT_ITS ---
Exam(s) CT ABDOMEN PELVIS W EXAM: CT ABDOMEN PELVIS W CLINICAL HISTORY: continuing uti s/s,ANEMIA,DIVERTICULITIS,FISTULA TECHNIQUE: Imaging Protocol: Axial computed tomography images with coronal and sagittal reformatted images were created and reviewed CONTRAST MATERIAL: Intravenous: Omnipaque 350 Contrast volume:100 mL Oral: Yes COMPARISON: CT CT ABDOMEN PELVIS W from 03/28/2021 FINDINGS: ABDOMEN: Lung Bases: Normal where visualized. Liver: Normal density. No measurable mass. Portal, Superior Mesenteric, and Splenic Veins: Unremarkable. Gallbladder and Biliary Tract: No radiodense calculus or dilation. Pancreas: Normal density, no abnormal calcifications or inflammatory process. Spleen: Normal. Adrenals: No masses seen. Kidneys: Normal size, contour and axis. No radiodense stones or obstructive uropathy. No masses seen. Abdominal Aorta: Abdominal portion non-dilated. Mild atherosclerosis. Bowel: The patient now has a left lower quadrant colostomy. There is persistent bowel wall thickenin g and surrounding inflammatory stranding about the residual in the sigmoid pouch. There may be a tin y air-fluid collection interposed between the sigmoid colon and the small bowel representing a tiny a bscess. (Series 5, image 753). There is persistent diffuse thickening of the wall of the urinary bl adder. No air is seen within the urinary bladder at this time. Appendix is unremarkable. Peritoneal Cavity: No ascites, collection or mesenteric inflammatory response. No free air. Lymph Nodes: Within normal limits. Bones: Within normal limits for the patient's age. Soft Tissues: Small fat containing inguinal hernia. PELVIS: Bladder: Please see the above discussion. Reproductive Organs: Unremarkable as visualized. Lymph Nodes: Within normal limits. Bones: Within normal limits for the patient's age. IMPRESSION: 1. Status post left lower quadrant colostomy. 2. Persistent stranding and bowel wall thickening in the mid sigmoid colon. Tiny air-fluid collectio n interposed between the sigmoid colon and small bowel likely representing a tiny abscess. 3. No air is seen within the urinary bladder at this time. 4. Persistent diffuse thickening of the wall of the urinary bladder. This is likely reflecting a inf lammatory or infectious process. RADIATION DOSE DELIVERED: 1,197.04mGy.cm Total DLP DATA REPOSITORY: All CT scans at this facility are submitted to the National Radiology Data Registry (NRDR) Dose Index Registry (DIR) with the [employer] (ACR). RADIATION OPTIMIZATION: All CT scans at this facility use at least one of these dose optimization te chniques: automated exposure control; mA and/or kV adjustment per patient size (includes targeted exa ms where dose is matched to clinical indication); or iterative reconstruction.
[2021-05-20] MEDS: Omnipaque 350 MG/ML 100 ML BTL IJ (10:58)
[2021-05-20] MEDS: Normal Saline Flush 10 ML SYR IVP (10:59)
[2021-05-20] MEDS: Omnipaque 350 MG/ML 50 ML BTL PO (11:00)
[2021-05-20] MEDS: Breeza Beverage 473 ML BTL PO (11:00)
== END 2021-05-20 02:06 ==
PROVIDERS: PCP Family Medicine; Visit Provider Surgery
DX: D50.8 Other iron deficiency anemias (principal); E46 Unspecified protein-calorie malnutrition; E88.09 Other disorders of plasma-protein metabolism, not elsewhere classified; K57.20 Diverticulitis of large intestine with perforation and abscess without bleeding; N32.1 Vesicointestinal fistula; N39.0 Urinary tract infection, site not specified; R03.0 Elevated blood-pressure reading, without diagnosis of hypertension
CPT/HCPCS: 74177; J3490; Q9967

== ENCOUNTER 2021-06-25 03:12 | Outpatient (CLI) | payer BC, SELFPAY ==
[2021-06-25 11:33] LABS: Source Nasal/Nares
[2021-06-25 15:38] LABS: COVID-19 PCR Negative (Negative)
== END 2021-06-25 03:13 | disposition home or self-care (01) ==
LOC: LBO 03:18
PROVIDERS: PCP Family Medicine; Visit Provider Surgery
DX: Z20.822 Contact with and (suspected) exposure to COVID-19 (principal); Z01.818 Encounter for other preprocedural examination
CPT/HCPCS: 87635

== ENCOUNTER 2021-06-27 08:01 | Day surgery (SDC) | payer BC, SELFPAY ==
--- NOTE | 2021-06-26 17:39 | COLE_ITS ---
Colonoscopy Report Date of procedure: 06/27/21 Pre-op diagnosis general: diverticulilar abscess/diverticulitis Surgeon: Christianne Vazquez Anesthesia Type: General LMA/ETT Estimated blood loss (mL): 5 Pathology: other Complications: None Disposition: same day Prep: Miralax/Dulcolax Retraction Time: 63 Procedure Description: After informed consent was obtained the patient was taken to the procedure room and placed in a left decubitous position. Monitors were applied and a time out was done. The patients name, date of , procedure, allergies to medications and metal in their body was reviewed. The patient was then sedated. Once sedated and comfortable a rectal exam was done. External exam was normal. Internal exam revealed a normal sphincter tone and no palpable masses. The prostate nl. The scope was then introduced and retrofelexed. no internal hemorrhoids were identified. The scope is passed up to the rectal stump at 30cm. There are no masses or polyps. There is no sign of any infection. There is no sign of any bleeding. He does have a few small diverticula from 20 to 30 cm. A biopsy was taken. All specimens treated and no bleeding is noted. The scope was then removed from the rectum and passed through the colostomy. The TI and appendiceal orifice were identified. The prep was good. The scope was then slowly retracted over 63 minutes back into the rectum. The scope was removed and the patient was woken up and taken back to Same day surgery in stable condition. S evere diverticular disease was noted throughout the entirety of the colon. No signs of bleeding or infection. He does have a large polyp in the cecum-the polyp is very irregular in shape. It is probably about 2 cm in total. Parts of it are flat and parts of it are pedunculated.. This was tattooed and elevated. It was removed in piecemeal with hot biting forceps. 2 clips were placed over the defect. He also has a 1 cm pedunculated polyp at 20 cm from the colostomy edge. This is removed with a hot snare and a clip was placed over the defect. There are no signs of any active infection from the diverticulum. The patient tolerated the procedure well and there were no immediate complications. Follow up: The patient should follow up in 3-5yrs, path pd, unless they develop changes in bowel habits or other new gastrointestinal complaints.
--- NOTE | 2021-06-26 17:40 | PDOC.DSDIS_ITS ---
Discharge Plan Disposition Patient Disposition: HOME Condition: Good Discharge Details Reason For Visit: colon scope Attending Provider: Christianne Vazquez Primary Care Provider: Harjinder Dangelo Home Meds and New Rx's Prescriptions: No Action levofloxacin 500 mg tablet 500 mg PO DAILY Qty: 21 RF: 6 epinephrine [EpiPen 2-Jose Ramon] 0.3 mg/0.3 mL auto-injector 0.3 mg IM Q5-15M PRNRF: 0 acetaminophen [Tylenol] 325 mg capsule 325 mg PO ONCE PRNRF: 0 Acidophilus Ex Str (L. sporog) 35 million- 25 million cell tablet 1 tab PO DAILY Qty: 90 RF: 0 Discharge Instructions Additional Instructions: DSU Colonoscopy Post- Op Instructions Instructions for Everyone who is given Anesthesia: For your safety, please do the following for the next twenty-four (24) hours: *Do Not operate a motor vehicle (car, truck, motorcycle, etc.) *Do Not drink alcoholic beverages or use any recreational drugs for the first 24 hours or while taking pain medications. The medications in your body may have a reaction that can be dangerous. *Do Not make any important decisions or sign any important papers. Findings: Severe diverticular disease throughout the entire colon X2 polyp removal *Needed with metal clips over the polypectomy sites. You will passed these in 3 to 7 days. You may notice them in an ostomy bag. You may notice scant amount of blood the next 1-2 days. Follow up: 2 wks She 1. No lifting over 20 pounds or strenuous activity for the first 24 hours after your procedure. After 24 hours there are no restrictions on your activity but you may feel fatigued for a few days. 2. After you arrive home you may have a light meal and return to your normal diet as you can tolerate it without feeling sick to your stomach. 3. You may have a bloated, gaseous feeling in your belly (abdomen) after a colonoscopy. Passing gas and belching will help. Walking or lying down on your left side with your knees flexed may relieve the discomfort. Call the office at [phone] (Office) or [phone] (Hospital) right away if you notice any of the following: a.Vomiting of blood or ?coffee ground stools?. c.Severe belly (abdominal) pain. d.A hard distended belly (abdomen) and an inability to pass gas. 4. You may have some drainage from the rectum in the next 24 hours 5. If there are questions regarding the findings of your procedure, please contact your doctor 6. If you are unable to contact your doctor with a problem, contact the hospital at [phone]. 7. Continue all your regular medications unless directed otherwise. I understand the above instructions and have no questions. Signature of Patient or Adult Escort Name of Responsible Adult Escort Signature of Nurse Date/Time Activity:: See above Diet:: See above Discharge Orders Discharge Orders: Discharge Order (Routine); Ordered 06/26/21 Ordered By: Christianne Vazquez DS: Diagnosis Discharge Diagnosis (1) Colonic diverticular abscess: Status: Acute (2) Colovesical fistula: Status: Acute (3) Hypertension: Status: Acute (4) Colon polyp: Status: Acute (5) Pancolonic diverticulosis: Status: Acute
--- NOTE | 2021-06-27 07:45 | W.PM.HP.N ---
Date of service: 06/27/21 Time of Service: 07:45 History of Present Illness Narrative: t is doing well. no headaches. No CP or SOB. no productive cough. no dysuria. no leg pain or swelling. Still feels tired. He has had no issues with his incision or with his colostomy. He has had no fevers or chills. He is not passing any air when he urinates. He has not had any sediment. He has not had any dysuria or irritation since being on the antibiotics. I did review the results of the CT with him. He has been on Bactrim for the last 2 weeks. The Augmentin did not agree well with him and giving he was giving him a lot of GI distress. I think I will switch him over to Levaquin. I think he does need to continue to be on antibiotic suppression. He is on a probiotic daily. today Patient is a daily levofloxacin. Has had no further pelvic pain or bladder pain. He has not had no air or sediment when urinating. He completed without any problems. He is not having any abdominal pain today. He is not having any chest pain or shortness of breath today. He has not had any fevers or coughs. All questions answered and stable for [facility] All Active Problems (Updated 06/26/21 @ 17:40 by Christianne Vazquez DO) Diverticulitis, colon (Acute) Colonic diverticular abscess (Acute) Colovesical fistula (Acute) Borderline systolic HTN (Acute) Borderline hyperlipidemia (Acute) Hypertension (Acute) Diverticulitis (Chronic) Hypoalbuminemia due to protein-calorie malnutrition (Acute) Other iron deficiency anemias (Acute) Acute UTI (urinary tract infection) (Acute) Medical History (Updated 06/26/21 @ 17:40 by Christianne Vazquez DO) Depression Diverticulitis High cholesterol UTI (urinary tract infection) Surgical History (Updated 06/27/21 @ 08:11 by Octavio Knight) S/P colon resection S/P colostomy Social History Smoking/Tobacco Use Status: Former Tobacco Use Quit Date: 06/21/89 Smoking risk assessment performed?: Yes Alcohol Intake: former Drug use: Never Substance use type: does not use Do you feel safe at home: Yes Do you feel safe in your relationship?: Yes Meds Allergies and Home Medications Allergies Allergy/AdvReac Type Severity Reaction Status Date / Time bee venom protein (honey bee) Allergy Mild Cardiac Verified 06/27/21 08:11 Dysrhythmia Penicillins Allergy Mild Hives, Verified 06/27/21 08:11 nausea simvastatin AdvReac Intermediate elevated Verified 06/27/21 08:11 liver enzymes atorvastatin AdvReac Mild elevated Verified 06/27/21 08:11 liver enzymes Hymenoptera AdvReac Intermediate heart Uncoded 06/25/21 14:55 racing, red face, headache Home Medications Medication Instructions Recorded Confirmed Type epinephrine 0.3 mg/0.3 mL 0.3 mg IM Q5-15M PRN 03/10/21 06/25/21 History injection, auto-injector Acidophilus Ex Str (L. sporog) 1 tab PO DAILY #90 tab 03/12/21 06/27/21 Rx acetaminophen 325 mg capsule 325 mg PO ONCE PRN 04/16/21 06/25/21 History levofloxacin 500 mg tablet 500 mg PO DAILY #21 tab 05/22/21 06/27/21 Rx Exam Resp Effort & Inspection: normal respiratory effort and able to speak in complete sentences Auscultation: clear to auscultation bilaterally Cardio Rate: regular rate Rhythm: regular rhythm GI Other: soft/no pain. + BS no hernia ostomy in LLQ
[2021-06-27 08:13] VITALS: BP 146/101; PULSE 106; RESP 18; TEMP 36.7; O2SAT 99
[2021-06-27] MEDS: Lactated Ringers 1,000 ML 80 ML IV (08:33)
--- NOTE | 2021-06-27 08:57 | ANES.PREOP_ITS ---
General Info Date of Service Date Performed: 06/27/21 Height: 5 ft 8 in Weight: 104.4 kg Body Mass Index (BMI): 34.9 Surgical Procedure: Operation Date: 06/27/21 09:35 Proposed Procedures Side Surgeon p Colonoscopy w/Rectum and Ostomy Christianne Vazquez, DO Meds Allergies and Home Medications Allergies Allergy/AdvReac Type Severity Reaction Status Date / Time bee venom protein (honey bee) Allergy Mild Cardiac Verified 06/27/21 08:11 Dysrhythmia Penicillins Allergy Mild Hives, Verified 06/27/21 08:11 nausea simvastatin AdvReac Intermediate elevated Verified 06/27/21 08:11 liver enzymes atorvastatin AdvReac Mild elevated Verified 06/27/21 08:11 liver enzymes Hymenoptera AdvReac Intermediate heart Uncoded 06/25/21 14:55 racing, red face, headache Home Medication Medication Instructions Recorded epinephrine 0.3 mg/0.3 mL 0.3 mg IM Q5-15M PRN 03/10/21 injection, auto-injector Acidophilus Ex Str (L. sporog) 1 tab PO DAILY #90 tab 03/12/21 acetaminophen 325 mg capsule 325 mg PO ONCE PRN 04/16/21 levofloxacin 500 mg tablet 500 mg PO DAILY #21 tab 05/22/21 Current Visit Medications: Current Medications Generic Name Dose Route Start Last Admin Trade Name Freq PRN Reason Stop Dose Admin Hyoscyamine Sulfate 0.125 mg 06/26/21 17:38 Hyoscyamine 0.125 Mg Sl/Oral/Chew SL DIRECTED PRN Ringer's Solution 1,000 mls @ 80 mls/hr 06/27/21 06:00 06/27/21 08:33 IV 07/26/21 23:59 80 mls/hr INFUSION BRUNO Administration IV Miscellaneous Supplies 1 each 06/27/21 06:00 Iv Access IV 07/26/21 23:59 DIRECTED BRUNO Ondansetron HCl 4 mg 06/26/21 17:38 Ondansetron 4 Mg/2 Ml Vial IVP Q4H PRN PRN Nausea / Vomiting Sodium Chloride 0 ml 06/27/21 06:00 Normal Saline Flush 10 Ml Syr IV 07/26/21 23:59 PRN PRN Sodium Chloride 0 ml 06/27/21 06:00 Normal Saline 10 Ml Vial IJ 07/26/21 23:59 DIRECTED PRN Sterile Water 0 ml 06/27/21 06:00 Water,Injection,Sterile 10 Ml Vial IJ 07/26/21 23:59 DIRECTED PRN PFSH Active Problems Active Problems: Problem Status Onset Code Diverticulitis, colon K57.32 Colonic diverticular abscess K57.20 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 Borderline systolic HTN R03.0 Borderline hyperlipidemia E78.5 Hypertension I10 Diverticulitis K57.92 Hypoalbuminemia due to protein-calorie malnutrition E88.09, E46 Other iron deficiency anemias D50.8 Acute UTI (urinary tract infection) N39.0 Medical History Medical History (Updated 06/26/21 @ 17:40 by Christianne Vazquez DO) Depression Diverticulitis High cholesterol UTI (urinary tract infection) Surgical History Surgical History (Updated 06/27/21 @ 08:11 by Octavio Knight) S/P colon resection S/P colostomy Tobacco Smoking/Tobacco Use Status: Former Tobacco Use Alcohol Alcohol Intake: former Substance Use Substance use: Never Substance use type: does not use Vital Signs and Lab Results Vital Signs Most Recent Vital Signs in EMR: Most Recent Vital Signs Temp Pulse Resp BP Pulse Ox 36.7 C 106 H 18 146/101 H 99 06/27/21 08:13 06/27/21 08:13 06/27/21 08:13 06/27/21 08:13 06/27/21 08:13 Lab Results Blood Type / Crossmatch: No Data to Display Complete Blood Count: No Data to Display Complete Metabolic Panel: No Data to Display Liver Function Panel: No Data to Display Coagulation Panel: No Data to Display Cardiac Panel: No Data to Display Arterial Blood Gas: No Data to Display Venous Blood Gas: No Data to Display Pancreas Panel: 2 No Data to Display Thyroid Panel: No Data to Display Infectious Disease: Coronavirus (COVID-19)(PCR) Negative (Negative) 06/25/21 08:37 06/25/21 Coronavirus 2019 Source Nasal/Nares 06/25/21 08:37 06/25/21 Blood Cultures: No Data to Display Toxicology Panel: No Data to Display Anesthesia Assessment and Plan Anesthesia History Personal History: No History of Anesthesia Complications Family History: No Family History of Anesthesia Complications Exercise Tolerance Exercise Tolerance: Metabolic Equivalents>4 Pertinent Negatives Pertinent Negatives: No Symptoms of GERD, No Major Cardiovascular Symptoms or Complaints, No Major Pulmonary Symptoms or Complaints and No History of CVA/TIA Cardiac & Pulmonary Exam Cardiac Exam: Normal S1/S2 Heart Sounds Pulmonary Exam: Clear Bilateral Breath Sounds Implantable Cardiac Device Does patient have a Pacemaker or an ICD?: No Airway Exam Known Difficult Airway: No Mallampati Class: 2 Mouth Opening: Normal (> 3cm) Thyromental Distance: Greater than 3 cm Neck Range of Motion: Full ROM Neck Circumference: Normal Teeth Condition: Normal Dentition Airway Comments: 17 or 18 filling fell out ASA Classification ASA Score: ASA 2 Emergency Case?: No NPO Status NPO Status: NPO Clears >2 hours, Solids >8 hours Anesthesia Plan Resuscitation Status: Full Code Anesthesia Technique: General Anesthesia Airway Planned: Natural Airway Monitors Used: Standard Monitors
[2021-06-27 09:01] VITALS: BMI 34.9
--- NOTE | 2021-06-27 11:03 | BOWEL_PTH ---
PATIENT: Martin Santiago LOC: [facility] U#:[id number] AGE/SX: 50/M ROOM: RE06/27/[address]: Christianne Vazquez : 1970 BED: DIS: 06/27/2021 SPEC #: [id number] RECD: 06/27/21 13:12 STATUS: FELIPE RE #: [id number] KIRA: 06/27/21 11:[address]: Christianne Vazquez DEPT: Surgical Specimen RECD BY: Vicky Mercer ENTERED: 06/27/21 13:13 SP TYPE: Bowel OTHR DR: Harjinder Dangelo Tissues: 1 - BIOPSY BOWEL 2 - BIOPSY BOWEL 3 - BIOPSY BOWEL Procedures: GROSS AND MICRO LEVEL 4 Comments: [id number]
[2021-06-27] MEDS: Endoscopic Tattoo 5 ML SYR IJ (11:27)
[2021-06-27 12:15] VITALS: BP 126/90; PULSE 90; RESP 16; TEMP 36.3; O2SAT 96
[2021-06-27 12:45] VITALS: BP 134/97; PULSE 63; RESP 16; TEMP 36.5; O2SAT 100
--- NOTE | 2021-06-27 13:04 | W.ANESPOSTOP ---
Postoperative Evaluation Date, Time and Location Date Performed: 06/27/21 Time Performed: 13:04 Patient Location: Day Surgery Unit Vital Signs Most Recent Imported Vital Signs: Most Recent Vital Signs Temp Pulse Resp BP Pulse Ox 36.5 C 63 16 134/97 H 100 06/27/21 12:45 06/27/21 12:45 06/27/21 12:45 06/27/21 12:45 06/27/21 12:45 Pain Score Most Recent Pain Score: Most Recent Pain Score Pain Level 0 06/27/21 12:45 Assessment Mental Status: Awake (Alert & Oriented to Patient Baseline) Airway and Respiratory Function: Patent airway with normal (patient baseline) respiratory exam Cardiovascular Function: Hemodynamically Stable Hydration Status: Adequately Hydrated Nausea & Vomiting: No Nausea or Vomiting Pain: Pt. Denies Any Pain Peripheral Nerve Block: Patient did not receive a nerve block
== END 2021-06-27 12:45 | disposition home or self-care (01) ==
LOC: SUR 08:01
PROVIDERS: PCP Family Medicine; Visit Provider Surgery
PROC: 0DJD8ZZ Inspection of Lower Intestinal Tract, Via Natural or Artificial Opening Endoscopic (ICD-10-PCS; CPT 45378; principal; 2021-06-27 09:30)
DX: K57.30 Diverticulosis of large intestine without perforation or abscess without bleeding (principal); D12.5 Benign neoplasm of sigmoid colon; K51.40 Inflammatory polyps of colon without complications; I10 Essential (primary) hypertension; E46 Unspecified protein-calorie malnutrition; D50.9 Iron deficiency anemia, unspecified
CPT/HCPCS: 44394; 44404; 44392; 45380; 88305; J2001

== ENCOUNTER 2021-12-10 16:18 | Outpatient (REF) | payer BC, SELFPAY ==
[2021-12-10 14:29] LABS: Calculated LDL 146 mg/dL (<100); Cholesterol 241 mg/dL (<200); HDL Cholesterol 37 mg/dL (40-60); Triglyceride 291 mg/dL (<150)
[2021-12-11 09:31] LABS: Hepatitis C Ab w Rflx HCV PCR Negative (Negative)
[2021-12-11 09:54] LABS: HIV-1/2 Ag & Ab Screen Negative (Negative)
== END 2021-12-10 16:19 | disposition home or self-care (01) ==
LOC: NCHCN 16:18
PROVIDERS: PCP Family Medicine; Visit Provider Family Medicine
DX: Z00.00 Encounter for general adult medical examination without abnormal findings (principal); I10 Essential (primary) hypertension; E78.5 Hyperlipidemia, unspecified; Z11.4 Encounter for screening for human immunodeficiency virus [HIV]; Z11.59 Encounter for screening for other viral diseases
CPT/HCPCS: 80061; 86803; 87389

== ENCOUNTER 2023-05-07 22:23 | Outpatient (REF) | payer BC, SELFPAY ==
[2023-05-07 21:22] LABS: ALT 47 U/L (16-63); AST 22 U/L (15-37); Anion Gap 6.6 mmol/L (3-11); BUN 19 mg/dL (7-18); CO2 31.4 mmol/L (21.0-32.0); CREATININE 0.9 mg/dL (0.70-1.30); Calcium 9.5 mg/dL (8.5-10.1); Chloride 103 mmol/L (98-107); Estimated GFR 102.12 (mL/min/1.73m2); Glucose 93 mg/dL (74-106); Potassium 4.2 mmol/L (3.5-5.1); Sodium 141 mmol/L (136-145)
== END 2023-05-07 22:24 | disposition home or self-care (01) ==
LOC: NCHCN 22:23
PROVIDERS: PCP Family Medicine; Visit Provider Family Medicine
DX: Z00.00 Encounter for general adult medical examination without abnormal findings (principal); I10 Essential (primary) hypertension
CPT/HCPCS: 80048; 84450; 84460

== ENCOUNTER 2023-07-01 15:03 | Outpatient (REF) | payer BC, SELFPAY ==
[2023-07-01 14:35] LABS: Calculated LDL 108 mg/dL (<100); Cholesterol 170 mg/dL (<200); HDL Cholesterol 39 mg/dL (40-60); Triglyceride 117 mg/dL (<150)
== END 2023-07-01 15:04 | disposition home or self-care (01) ==
LOC: NCHCN 15:03
PROVIDERS: PCP Family Medicine; Visit Provider Family Medicine
DX: E78.5 Hyperlipidemia, unspecified (principal)
CPT/HCPCS: 80061

== ENCOUNTER 2024-04-20 15:40 | Outpatient (REF) | payer BC, SELFPAY ==
[2024-04-20 16:20] LABS: ALT 44 U/L (16-63); AST 21 U/L (15-37); Albumin 3.9 g/dL (3.4-5.0); Alkaline Phosphatase 77 U/L (46-116); Anion Gap 7.6 mmol/L (3-11); BUN 16 mg/dL (7-18); Bilirubin, Total 0.62 mg/dL (0.2-1.0); CO2 29.4 mmol/L (21.0-32.0); CREATININE 0.9 mg/dL (0.70-1.30); Calcium 9.5 mg/dL (8.5-10.1); Chloride 104 mmol/L (98-107); Estimated GFR 101.49 (mL/min/1.73m2); Glucose 88 mg/dL (74-106); Potassium 4.5 mmol/L (3.5-5.1); Sodium 141 mmol/L (136-145); Total Protein 7.7 g/dL (6.4-8.2)
[2024-04-21 09:19] LABS: LDL CHOLESTEROL 88 mg/dL (<100)
== END 2024-04-20 15:41 | disposition home or self-care (01) ==
LOC: NCHCN 15:40
PROVIDERS: PCP Family Medicine; Visit Provider Family Medicine
DX: Z00.00 Encounter for general adult medical examination without abnormal findings (principal)
CPT/HCPCS: 80053; 83721

== ENCOUNTER 2025-04-23 12:32 | Outpatient (REF) | payer BC, SELFPAY ==
[2025-04-23 16:31] LABS: ALT 62 U/L (16-63); AST 33 U/L (15-37); Albumin 4.3 g/dL (3.4-5.0); Alkaline Phosphatase 90 U/L (46-116); Anion Gap 12.9 mmol/L (3-11); BUN 17 mg/dL (7-18); Bilirubin, Total 0.9 mg/dL (0.2-1.0); CO2 27.1 mmol/L (21.0-32.0); Calcium 9.4 mg/dL (8.5-10.1); Chloride 100 mmol/L (98-107); Glucose 89 mg/dL (74-106); Potassium 4.3 mmol/L (3.5-5.1); Sodium 140 mmol/L (136-145); Total Protein 8.4 g/dL (6.4-8.2)
== END 2025-04-23 12:33 | disposition home or self-care (01) ==
LOC: NCHCN 12:32
PROVIDERS: PCP Family Medicine; Visit Provider Family Medicine
DX: I10 Essential (primary) hypertension (principal)
CPT/HCPCS: 80053